=== PATIENT | female | born 1955 | race Caucasian/White ===

== ENCOUNTER 2017-06-08 14:55 | Emergency (ER) | payer OTHER ==
[2017-06-08 15:04] VITALS: RESP 20; TEMP 98.4
[2017-06-08] MEDS ORDERED: SODIUM CHLORIDE 0.9% 500 ML IV STA (16:02)
[2017-06-08] MEDS ORDERED: SODIUM CHLORIDE 0.9% 1,000 ML IV STA (16:02)
[2017-06-08 16:55] LABS: ALT 38 U/L (9-52); AST 29 U/L (14-36); Alkaline Phosphatase 103 U/L (38-126); Anion Gap 10 mmol/L; Blood Urea Nitrogen 16 mg/dL (7-17); Calcium 10.3 mg/dL (8.4-10.2); Carbon Dioxide 24 mmol/L (22-30); Chloride 104 mmol/L (98-107); Glucose 90 mg/dL (74-99); Non-African American GFR(MDRD) >60 (>60 ml/min/1.73 sqM); Potassium 3.9 mmol/L (3.5-5.1); Sodium 138 mmol/L (137-145); Total Bilirubin 0.5 mg/dL (0.2-1.3)
[2017-06-08 16:57] LABS: Appearance,Urine Clear (Clear); Basophils # (A) 0.1 k/uL (0-0.2); Basophils % (A) 1 %; Bilirubin,Urine Negative (Negative); CH 29.8; CHCM 32.7; Eosinophils % (A) 1 %; Glucose,Urine (UA) Negative (Negative); HCT 42.3 % (34.0-46.0); HDW 2.41; HGB 13.8 gm/dL (11.4-16.0); Ketones,Urine Negative (Negative); Leukocyte Esterase,Urine Negative (Negative); Luc # (Auto) 0.09; Luc % (Auto) 1; Lymphocytes # (A) 2.3 k/uL (1.0-4.8); Lymphocytes % (A) 31 %; MCH 29.9 pg (25.0-35.0); MCHC 32.7 g/dL (31.0-37.0); MCV 91.3 fL (80.0-100.0); Mean Platelet Volume 6.7; Monocytes # (A) 0.6 k/uL (0-1.0); Monocytes % (A) 8 %; Neutrophils # (A) 4.6 k/uL (1.3-7.7); Neutrophils % (A) 59 %; Nitrite,Urine Negative (Negative); PH, Urine 7.5 (5.0-8.0); Protein,Urine Negative (Negative); RBC 4.63 m/uL (3.80-5.40); RDW 14.1 % (11.5-15.5); Specific Gravity,Urine 1.016 (1.001-1.035); UA Billing (MACRO vs. MICRO) CHEM; Urobilinogen,Urine <2.0 mg/dL (<2.0); WBC 7.7 k/uL (3.8-10.6); WBC (Perox) 7.57
[2017-06-08 16:58] VITALS: BP 128/80; PULSE 75
[2017-06-08 17:05] LABS: Partial Thromboplastin Time 24.3 sec (22.0-30.0); Prothrombin Time 10.3 sec (9.0-12.0)
--- NOTE | 2017-06-08 17:27 | ED ---
General Adult HPI - General Chief complaint: Recheck/Abnormal Lab/Rx Stated complaint: trouble walking Time Seen by Provider: 06/08/17 15:49 Source: patient Mode of arrival: wheelchair Limitations: physical limitation - History of Present Illness Initial comments: This 61-year-old white female presents with a complaint of some weakness. She states that it seems to be more in her legs. It started this morning after she thinks that she took an extra Flexeril medication accidentally. She states that she did fall but did not sustain any injuries. She states that this did occur one time previously with an extra Flexeril intake. She denies any chest pain, shortness of breath, fevers, or chills. She denies any urinary symptoms. There is no cough or difficulty in breathing. No other complaints or modifying factors. She does inquire as to whether or not this could be related to an increased level of her antiseizure medications. She no longer takes Dilantin but currently is on Keppra and Lamictal. - Related Data Home Medications Medication Instructions Recorded Confirmed ALPRAZolam [Xanax] 0.25 mg PO BID@1400,2200 07/12/15 07/12/15 Albuterol Inhaler [Ventolin Hfa 1 - 2 puff INHALATION RT-Q6H PRN 07/12/15 Inhaler] Ascorbic Acid [Vitamin C] 500 mg PO HS 07/12/15 07/12/15 Atorvastatin [Lipitor] 80 mg PO HS 07/12/15 07/12/15 Calcium Carbonate [Calcium] 600 mg PO BID 07/12/15 07/12/15 Cholecalciferol [Vitamin D3] 2,000 unit PO DAILY 07/12/15 07/12/15 Cyclobenzaprine [Flexeril] 10 mg PO BID 07/12/15 07/12/15 FLUoxetine HCL [PROzac] 20 mg PO DAILY 07/12/15 07/12/15 Fish Oil/Dha/Epa [Fish Oil 1,200 1 cap PO BID 07/12/15 07/12/15 mg Fish Oil] Glucosamine/Chondr Randle A Sod [Osteo 1 tab PO BID 07/12/15 07/12/15 Bi-Flex Caplet] HYDROcodone/APAP 7.5-325MG [Transfer 1 tab PO Q4H PRN 07/12/15 07/12/15 7.5-325] Hydrochlorothiazide 12.5 mg PO DAILY 07/12/15 07/12/15 Losartan Potassium 50 mg PO DAILY 07/12/15 07/12/15 Multivitamins, Thera [Multivitamin 1 tab PO DAILY 07/12/15 07/12/15 (formulary)] Naproxen [Naprosyn] 250 mg PO BID 07/12/15 07/12/15 Omeprazole [PriLOSEC] 20 mg PO DAILY 07/12/15 07/12/15 Oxybutynin Chloride [Oxybutynin 5 mg PO DAILY 07/12/15 07/12/15 Chloride ER] Requip (Unknown Dose) 1 tab PO HS 07/12/15 07/12/15 Tiotropium 18 Mcg/Puff [Spiriva] 18 mcg INHALATION RT-DAILY 07/12/15 07/12/15 lamoTRIgine [LaMICtal] 150 mg PO BID 07/12/15 07/12/15 levETIRAcetam [Keppra Xr] 500 mg PO TID 07/12/15 07/12/15 Previous Rx's Medication Instructions Recorded Budesonide-Formot 160-4.5 Mcg 2 puff INHALATION BID #1 inhaler 07/12/15 [Symbicort 160-4.5 Mcg Inhaler] Phenytoin Sodium Extended 300 mg PO HS #0 07/12/15 [Dilantin] Allergies Allergy/AdvReac Type Severity Reaction Status Date / Time codeine Allergy Unknown Verified 06/08/17 17:20 topiramate [From Topamax] Allergy Unknown Verified 06/08/17 17:20 Review of Systems ROS Statement: Those systems with pertinent positive or pertinent negative responses have been documented in the HPI. ROS Other: All systems not noted in ROS Statement are negative. Past Medical History Past Medical History: CVA/TIA, GERD/Reflux, Hyperlipidemia, Hypertension, Seizure Disorder Additional Past Medical History / Comment(s): 07/12/15 Pt woke this AM and accidentally took extra dose of her xanax. She normally takes 0.5mg xanax but by accident, took 2 tablets. After taking xanax, she couldn't stand up-had weakness in both legs. Pt has some weakness/clumsiness in L arm and L leg from old CVA. Family also noticed slurred speech this AM. Pt is being admitted with clinical impression of TIA and acute maxoid sinusitis. 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 History of Any Multi-Drug Resistant Organisms: None Reported Past Surgical History: Hysterectomy, Tonsillectomy, Tubal Ligation Additional Past Surgical History / Comment(s): Aldo aneurysm clipping, sinus surgery, R carpal and R antecubital tunnel releases, 2 back injections for pain with last one done 03/14/15, hemorrhoidectomy, colonoscopy 2014 which was normal. Past Anesthesia/Blood Transfusion Reactions: No Reported Reaction Additional Past Anesthesia/Blood Transfusion Reaction / Comment(s): Pt states she has never received blood. Past Psychological History: Anxiety, Depression Smoking Status: Current every day smoker Past Alcohol Use History: None Reported Past Drug Use History: None Reported - Past Family History Father Family Medical History: Cancer, COPD, Pneumonia Additional Family Medical History / Comment(s): Father had colon and lung cancer. He was a smoker. He of pneumonia at age 72 yrs. Mother Family Medical History: Vascular Disorder Additional Family Medical History / Comment(s): Mother has caratid artery disease- she is living and is 87yrs old. General Exam - General Exam Comments Initial Comments: GENERAL: The patient is well nourished and well hydrated. VITAL SIGNS: Heart rate, blood pressure, respiratory rate reviewed as recorded in nurse's notes. EYES: Pupils are round and reactive. Extraocular movements are intact. No conjunctival / lid redness or swelling. ENT: No external evidence of injury, swelling, or ecchymosis. Airway is patent. Throat is clear. NECK: Nontender. No swelling or evidence of injury. No subcutaneous emphysema. Trachea is midline. No thyroid mass. HEART: Regular rate and rhythm. Good peripheral pulses. LUNGS/CHEST: Breath sounds clear and equal bilaterally. No rales, rhonchi, or wheezes. No ecchymosis, subcutaneous emphysema, or tenderness. ABDOMEN: Abdomen soft without tenderness. No palpable masses or organomegaly. No peritoneal signs. No abdominal wall swelling or ecchymosis. EXTREMITIES: No extremity tenderness. Normal muscle tone and function. No thoracolumbar tenderness. NEUROLOGIC: Sensation is grossly intact. Cranial nerve exam reveals face is symmetrical, tongue is midline, speech is clear. SKIN: No abrasions or ecchymosis is noted. No induration or masses noted. PSYCHIATRIC: Alert and oriented. Appropriate behavior and judgment. Limitations: physical limitation Course Vital Signs 06/08/17 06/08/17 14:59 16:58 Temperature 98.4 F Pulse Rate 84 Pulse Rate [ 80 Sitting] Pulse Rate [ 88 Standing] Pulse Rate [ 75 Supine] Respiratory 20 Rate Blood Pressure 131/77 Blood Pressure 131/80 [Sitting] Blood Pressure 142/73 [Standing] Blood Pressure 128/80 [Supine] O2 Sat by Pulse 96 Oximetry Medical Decision Making - Medical Decision Making The patient was seen and examined. All diagnostics were reviewed. An IV is started and she is hydrated. The EKG shows a normal sinus rhythm at a rate of 79. There is no acute ST-T wave changes. The [place] intervals 158, the QRS duration is 84, and the QTc interval is 472. The orthostatic vital signs are negative. The laboratory is unremarkable. A Keppra and Lamictal level is sent off but does not come back for a couple of days. They are instructed to follow up with their primary doctor in 2-3 days for these levels. It is felt as though she is stable for discharge. She is ambulating in the emergency Department without any difficulty. She feels better on recheck. It is felt as though her symptoms may have been related to the extra Flexeril medication on top of her other significant medication list. - Lab Data Result diagrams: 06/08/17 16:33 06/08/17 16:33 Lab Results 06/08/17 06/08/17 06/08/17 Range/Units 16:33 16:33 16:33 WBC 7.7 (3.8-10.6) k/uL RBC 4.63 (3.80-5.40) m/uL Hgb 13.8 (11.4-16.0) gm/dL Hct 42.3 (34.0-46.0) % MCV 91.3 (80.0-100.0) fL MCH 29.9 (25.0-35.0) pg MCHC 32.7 (31.0-37.0) g/dL RDW 14.1 (11.5-15.5) % Plt Count 372 (150-450) k/uL Neutrophils % 59 % Lymphocytes % 31 % Monocytes % 8 % Eosinophils % 1 % Basophils % 1 % Neutrophils # 4.6 (1.3-7.7) k/uL Lymphocytes # 2.3 (1.0-4.8) k/uL Monocytes # 0.6 (0-1.0) k/uL Eosinophils # 0.0 (0-0.7) k/uL Basophils # 0.1 (0-0.2) k/uL PT 10.3 (9.0-12.0) sec INR 1.0 (<1.2) APTT 24.3 (22.0-30.0) sec Sodium 138 (137-145) mmol/L Potassium 3.9 (3.5-5.1) mmol/L Chloride 104 (98-107) mmol/L Carbon Dioxide 24 (22-30) mmol/L Anion Gap 10 mmol/L BUN 16 (7-17) mg/dL Creatinine 0.62 (0.52-1.04) mg/dL Est GFR (MDRD) Af Amer >60 (>60 ml/min/1.73 sqM) Est GFR (MDRD) Non-Af >60 (>60 ml/min/1.73 sqM) Glucose 90 (74-99) mg/dL Calcium 10.3 H (8.4-10.2) mg/dL Total Bilirubin 0.5 (0.2-1.3) mg/dL AST 29 (14-36) U/L ALT 38 (9-52) U/L Alkaline Phosphatase 103 (38-126) U/L Total Protein 7.0 (6.3-8.2) g/dL Albumin 4.7 (3.5-5.0) g/dL Urine Color Urine Appearance (Clear) Urine pH (5.0-8.0) Ur Specific [place] (1.001-1.035) Urine Protein (Negative) Urine Glucose (UA) (Negative) Urine Ketones (Negative) Urine Blood (Negative) Urine Nitrite (Negative) Urine Bilirubin (Negative) Urine Urobilinogen (<2.0) mg/dL Ur Leukocyte Esterase (Negative) 06/08/17 Range/Units 16:33 WBC (3.8-10.6) k/uL RBC (3.80-5.40) m/uL Hgb (11.4-16.0) gm/dL Hct (34.0-46.0) % MCV (80.0-100.0) fL MCH (25.0-35.0) pg MCHC (31.0-37.0) g/dL RDW (11.5-15.5) % Plt Count (150-450) k/uL Neutrophils % % Lymphocytes % % Monocytes % % Eosinophils % % Basophils % % Neutrophils # (1.3-7.7) k/uL Lymphocytes # (1.0-4.8) k/uL Monocytes # (0-1.0) k/uL Eosinophils # (0-0.7) k/uL Basophils # (0-0.2) k/uL PT (9.0-12.0) sec INR (<1.2) APTT (22.0-30.0) sec Sodium (137-145) mmol/L Potassium (3.5-5.1) mmol/L Chloride (98-107) mmol/L Carbon Dioxide (22-30) mmol/L Anion Gap mmol/L BUN (7-17) mg/dL Creatinine (0.52-1.04) mg/dL Est GFR (MDRD) Af Amer (>60 ml/min/1.73 sqM) Est GFR (MDRD) Non-Af (>60 ml/min/1.73 sqM) Glucose (74-99) mg/dL Calcium (8.4-10.2) mg/dL Total Bilirubin (0.2-1.3) mg/dL AST (14-36) U/L ALT (9-52) U/L Alkaline Phosphatase (38-126) U/L Total Protein (6.3-8.2) g/dL Albumin (3.5-5.0) g/dL Urine Color Yellow Urine Appearance Clear (Clear) Urine pH 7.5 (5.0-8.0) Ur Specific [place] 1.016 (1.001-1.035) Urine Protein Negative (Negative) Urine Glucose (UA) Negative (Negative) Urine Ketones Negative (Negative) Urine Blood Negative (Negative) Urine Nitrite Negative (Negative) Urine Bilirubin Negative (Negative) Urine Urobilinogen <2.0 (<2.0) mg/dL Ur Leukocyte Esterase Negative (Negative) Disposition Clinical Impression: Weakness Disposition: HOME SELF-CARE Condition: Good Instructions: Weakness (ED) Additional Instructions: Please follow-up with your Keppra and Lamictal levels with your doctor in 2-3 days. Referrals: Alejandro Barragan MD [Primary Care Provider] - 1-2 days Time of Disposition: 17:26
[2017-06-09 07:54] LABS: Levetiracetam (Keppra) 56.7 ug/mL (3.0-60.0)
[2017-06-09 13:43] LABS: Lamotrigine (Lamictal) 19.7 ug/mL (2.0-15.0)
== END 2017-06-08 17:38 | disposition home or self-care (01) ==
LOC: EC 14:55
DX: R53.1 Weakness (principal); K21.9 Gastro-esophageal reflux disease without esophagitis; E78.5 Hyperlipidemia, unspecified; I10 Essential (primary) hypertension; G40.909 Epilepsy, unspecified, not intractable, without status epilepticus; F32.9 Major depressive disorder, single episode, unspecified; F17.200 Nicotine dependence, unspecified, uncomplicated; F41.9 Anxiety disorder, unspecified; Z86.73 Personal history of transient ischemic attack (TIA), and cerebral infarction without residual deficits; Z88.5 Allergy status to narcotic agent; Z88.8 Allergy status to other drugs, medicaments and biological substances; Z79.1 Long term (current) use of non-steroidal anti-inflammatories (NSAID); Z79.899 Other long term (current) drug therapy
CPT/HCPCS: 36415; 80053; 80175; 80177; 81003; 84443; 85025; 85610; 85730; 93005; 99284

== ENCOUNTER → 2019-03-01 | Outpatient (CLI) | payer OTHER ==
--- NOTE | 2019-03-01 15:00 | CT ---
EXAMINATION TYPE: CT brain wo con DATE OF EXAM: 03/01/2019 COMPARISON: 07/12/2015 HISTORY: Frequent falls CT DLP: 1150 mGycm Automated exposure control for dose reduction was used. FINDINGS: Postsurgical changes of right frontoparietal and temporal craniotomy with underlying encephalomalacia in the right frontal, parietal, temporal and occipital lobes. There is stable ex vacuo dilatation of the right lateral ventricle. No evidence of acute intracranial hemorrhage. Left cerebral hemisphere is preserved. Cerebellar hemispheres are preserved. No hydrocephalus. No extra-axial fluid collection . Visualized paranasal sinuses and mastoid air cells are clear. The globes are intact. Redemonstratio n of aneurysm clip on the right and posterior to the sella turcica. IMPRESSION: NO ACUTE INTRACRANIAL PROCESS. 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 FINDINGS ARE SIMILAR WHEN COMPARED TO 07/12/2015.
== END | disposition home or self-care (01) ==
LOC: RADCTMAIN 13:24
PROVIDERS: ATTEND Psychiatry & Neurology Neurology
DX: I63.9 Cerebral infarction, unspecified (principal); G93.89 Other specified disorders of brain
CPT/HCPCS: 70450

== ENCOUNTER → 2019-09-07 | Outpatient (CLI) | payer OTHER ==
--- NOTE | 2019-09-08 07:25 | CT ---
EXAMINATION TYPE: CT cervical spine wo con DATE OF EXAM: 09/07/2019 COMPARISON: None HISTORY: 63-year-old female neck pain, no injury TECHNIQUE: Contiguous axial scanning of the cervical spine without IV contrast. Coronal and sagittal reconstructions performed. CT DLP: 298.9 mGycm Automated exposure control for dose reduction was used. FINDINGS: No craniocervical junction abnormality, predental space widening, or prevertebral soft tissue swellin g. Some degenerative changes of the C1 dens articulation. Some calcification mild thickening of the t ransverse ligament without any abnormal canal compromise at this level. Mild multilevel degenerative disc disease with disc bulges. Some discal calcifications are also noted as well as calcification of ligamentum flavum at various levels. Mild to moderate uncovertebral joint arthropathy mid to lower cervical spine. Scattered mild facet ar thropathy. Changes result in underlying mild spinal canal stenoses at multiple levels, possibly more moderate at C3-C4 and C5-C6. Assessment of the spinal canal at C6 and below is limited due to artifact from david ent's shoulders. Alignment is maintained. At C3-C4, there is mild right neuroforaminal stenosis. At C4-C5, there is moderate right neuroforaminal stenosis. At C5-C6, mild bilateral neuroforaminal narrowing. At C6/7, mild right neuroforaminal narrowing. Visualized upper lungs show underlying emphysematous change. IMPRESSION: 1. Mild multilevel degenerative disc disease with posterior disc bulges, scattered facet and uncovert ebral joint arthropathy, and ligamentum flavum thickening/calcification. 2. Mild spinal canal stenosis throughout, possibly more moderate at C3-C4 and C5-C6. 3. Variable mild neuroforaminal stenoses as outlined above. More moderate on the right at C4-C5. 4. Calcification of the ligamentum flavum, transverse ligament, and some scattered discal calcificati on. Nonspecific findings but which may be seen with CPPD.
--- NOTE | 2019-09-08 07:31 | CT ---
EXAMINATION TYPE: CT lumbar spine wo con DATE OF EXAM: 09/07/2019 COMPARISON: None HISTORY: 63-year-old female back pain, no injury TECHNIQUE: Contiguous axial scanning of the lumbar spine without IV contrast. Coronal and sagittal re constructions performed. CT DLP: 613.3 mGycm Automated exposure control for dose reduction was used. FINDINGS: Moderate atherosclerotic calcifications throughout the abdominal aorta and iliac arteries. There is m ild infrarenal AAA at 3.1 cm. Possible pelviectasis versus parapelvic cyst measuring 2.4 cm within th e right kidney. The latter is favored. Suspect a smaller parapelvic cyst lower pole left kidney. Calcification of the interspinous ligaments and scattered throughout the ligamentum flavum mild scatt ered intradiscal calcification noted within the lumbar spine as well. Vertebral body heights are preserved and alignment is maintained. Mild disc bulges at multiple levels. No evident canal compromise by CT. Facet arthropathy throughout the lumbar spine. On the left, changes result in mild neural foraminal stenoses at L2-L3, L4-L5, and more mild to moder ate at L5-S1. On the right, the changes result in mild neuroforaminal stenoses at L3-L4 and L4-L5 and more mild to moderate at L5-S1. IMPRESSION: 1. Calcifications throughout the interspinous ligaments, mild discal calcification, and scattered thr oughout the ligamentum flavum as well. Correlate for possible CPPD. 2. Mild multilevel degenerative disc disease with mild disc bulging. No evident canal compromise by C T. 3. Facet arthropathy throughout the lumbar spine. Changes result in variable mild neuroforaminal sten oses mid and lower lumbar spine, more mild to moderate on both sides at L5-S1. 4. Incidental AAA measuring 3.1 cm. Appropriate follow-up recommended.
== END | disposition home or self-care (01) ==
LOC: RADCTMAIN 15:01
PROVIDERS: ATTEND Psychiatry & Neurology Neurology
DX: M48.02 Spinal stenosis, cervical region (principal); M50.10 Cervical disc disorder with radiculopathy, unspecified cervical region; M46.92 Unspecified inflammatory spondylopathy, cervical region; M48.061 Spinal stenosis, lumbar region without neurogenic claudication; M51.26 Other intervertebral disc displacement, lumbar region; M51.36 Other intervertebral disc degeneration, lumbar region; M46.96 Unspecified inflammatory spondylopathy, lumbar region; Z88.5 Allergy status to narcotic agent; Z88.8 Allergy status to other drugs, medicaments and biological substances
CPT/HCPCS: 72125; 72131

== ENCOUNTER 2020-06-04 07:17 | Emergency (ER) | payer OTHER ==
[2020-06-04 07:24] VITALS: TEMP 98.2
[2020-06-04] MEDS ORDERED: MECLIZINE 12.5 MG TAB PO STA (07:25)
[2020-06-04] MEDS ORDERED: METOCLOPRAMIDE 5 MG/ML 2 ML VIAL IVP STA (07:25)
[2020-06-04] MEDS ORDERED: SODIUM CHLORIDE 0.9% 1,000 ML IV STA (07:43)
--- NOTE | 2020-06-04 07:43 | ED ---
General Adult HPI - General Chief complaint: Dizziness Stated complaint: Dizziness Time Seen by Provider: 06/04/20 07:20 Source: EMS Mode of arrival: EMS Limitations: no limitations - History of Present Illness Initial comments: Dictation was produced using [employer] dictation software. please excuse any grammatical, word or spelling errors. This patient was cared for during a federal and state declared state of emergency secondary to Covid 19 Chief Complaint: 64-year-old male presents with dizziness History of Present Illness: This 64-year-old female she has past medical history of chronic dizziness. She presents today with worsening dizziness. She states she ran out of her Antivert medication which she takes twice daily. Patient states she's been having dizziness for the last 2 years. Her symptoms today are similar from the symptoms she experience in the past. She lives at home by herself and began having worsening dizziness. She called EMS and was brought to the emergency department. Patient has a fever, chills or night sweats. Denies any respiratory symptoms. She does have some mild urinary frequency. Denies any dysuria. She is concerned about possible urinary tract infection. She states that she has seen multiple specialists regarding her dizziness and reports that she is a candidate for some sort of therapy to treat her dizziness permanently. She denies any headache. She denies any numbness and weakness in her arms or legs. The ROS documented in this emergency department record has been reviewed and confirmed by me. Those systems with pertinent positive or negative responses have been documented in the HPI. All other systems are other negative and/or noncontributory. PHYSICAL EXAM: General Impression: Alert and oriented x3, not in acute distress HEENT: Normocephalic atraumatic, extra-ocular movements intact, pupils equal and reactive to light bilaterally, mucous membranes moist. Cardiovascular: Heart regular rate and rhythm Chest: Able to complete full sentences, no retractions, no tachypnea Abdomen: abdomen soft, non-tender, non-distended, no organomegaly Musculoskeletal: Pulses present and equal in all extremities, no peripheral edema Motor: no focal deficits noted Neurological: CN II-XII grossly intact, no focal motor or sensory deficits noted, no truncal ataxia Skin: Intact with no visualized rashes Psych: Normal affect and mood ED course: 64-year-old female presents today with dizziness. She has had this diagnosis for approximately 2 years. She reports she has Antivert at home and recently ran out. Vital signs upon arrival are within acceptable limits. Pat ient physical examination is benign. EKG is unremarkable. Patient's medications are reviewed. Chart review was performed. Previous CTs demonstrate old encephalomalacia to the right hemisphere. Patient ambulated to bathroom and gait is at baseline although she does require minimal assistance. She is not gait ataxic She reports that this is her usual baseline. She did report some mild dizziness with ambulation. Laboratory evaluation obtained. CBC, metabolic panel is unremarkable. Urinal ysis is negative. Patient reevaluated at bedside after intravenous fluids, Reglan and Antivert. She reports significant improvement of symptoms. She feels back to normal. Patient given refill on her Antivert. She is strongly advised to follow-up with her primary care physician on an outpatient basis for reevaluation of symptoms and outpatient management of her chronic dizziness. Patient is understandable and agreeable with discharge. Return parameters discussed. EKG interpretation: Ventricular rate 73, normal sinus rhythm,. 174, QRS 96, QTC 495. No OH prolongation, no QTC prolongation, no ST or T-wave changes noted. EKG compared to 06/08/2017 showing no changes. Overall, this EKG is unremarkable - Related Data Home Medications Medication Instructions Recorded Confirmed Cyclobenzaprine [Flexeril] 5 mg PO BID 07/12/15 06/04/20 HYDROcodone/APAP 7.5-325MG [[place] 1 tab PO BID PRN 07/12/15 06/04/20 7.5-325] Hydrochlorothiazide 12.5 mg PO DAILY 07/12/15 06/04/20 [hydroCHLOROthiazide] Losartan Potassium 50 mg PO DAILY 07/12/15 06/04/20 Omeprazole [PriLOSEC] 20 mg PO DAILY 07/12/15 06/04/20 Budesonide-Formot 160-4.5 Mcg 2 puff INHALATION RT-BID 06/08/17 06/04/20 [Symbicort 160-4.5 Mcg Inhaler] Fluticasone/Salmeterol 2 puff INHALATION RT-BID 06/04/20 06/04/20 [Fluticasone-Salmeterol 232-14] Meclizine [Antivert] 25 mg PO TID PRN 06/04/20 06/04/20 Rosuvastatin [Crestor] 10 mg PO DAILY 06/04/20 06/04/20 Umeclidinium Galva [Incruse 1 puff INHALATION RT-DAILY 06/04/20 06/04/20 Ellipta] levETIRAcetam [Keppra] 1,500 mg PO BID 06/04/20 06/04/20 Previous Rx's Medication Instructions Recorded Meclizine [Antivert] 25 mg PO TID PRN #21 tab 06/04/20 Allergies Allergy/AdvReac Type Severity Reaction Status Date / Time codeine Allergy Unknown Verified 06/04/20 08:24 topiramate [From Topamax] Allergy Unknown Verified 06/04/20 08:24 Review of Systems ROS Statement: Those systems with pertinent positive or pertinent negative responses have been documented in the HPI. ROS Other: All systems not noted in ROS Statement are negative. Past Medical History Past Medical History: CVA/TIA, GERD/Reflux, Hyperlipidemia, Hypertension, Seizure Disorder Additional Past Medical History / Comment(s): 07/12/15 Pt woke this AM and accidentally took extra dose of her xanax. She normally takes 0.5mg xanax but by accident, took 2 tablets. After taking xanax, she couldn't stand up-had weakness in both legs. Pt has some weakness/clumsiness in L arm and L leg from old CVA. Family also noticed slurred speech this AM. Pt is being admitted with clinical impression of TIA and acute maxoid sinusitis. 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 History of Any Multi-Drug Resistant Organisms: None Reported Past Surgical History: Hysterectomy, Tonsillectomy, Tubal Ligation Additional Past Surgical History / Comment(s): Aldo aneurysm clipping, sinus surgery, R carpal and R antecubital tunnel releases, 2 back injections for pain with last one done 03/14/15, hemorrhoidectomy, colonoscopy 2014 which was normal. Past Anesthesia/Blood Transfusion Reactions: No Reported Reaction Additional Past Anesthesia/Blood Transfusion Reaction / Comment(s): Pt states she has never received blood. Past Psychological History: Anxiety, Depression Smoking Status: Current every day smoker Past Alcohol Use History: None Reported Past Drug Use History: None Reported - Past Family History Father Family Medical History: Cancer, COPD, Pneumonia Additional Family Medical History / Comment(s): Father had colon and lung cancer. He was a smoker. He of pneumonia at age 72 yrs. Mother Family Medical History: Vascular Disorder Additional Family Medical History / Comment(s): Mother has caratid artery disease- she is living and is 87yrs old. General Exam Limitations: no limitations Course Vital Signs 06/04/20 07:18 Temperature 98.2 F Pulse Rate 80 Respiratory 16 Rate Blood Pressure 184/98 O2 Sat by Pulse 96 Oximetry Medical Decision Making - Lab Data Result diagrams: 06/04/20 07:40 06/04/20 07:40 Lab Results 06/04/20 06/04/20 06/04/20 Range/Units 07:40 07:40 07:52 WBC 7.5 (3.8-10.6) k/uL RBC 4.60 (3.80-5.40) m/uL Hgb 14.1 (11.4-16.0) gm/dL Hct 41.6 (34.0-46.0) % MCV 90.5 (80.0-100.0) fL MCH 30.6 (25.0-35.0) pg MCHC 33.8 (31.0-37.0) g/dL RDW 12.6 (11.5-15.5) % Plt Count 392 (150-450) k/uL MPV 6.6 Neutrophils % 62 % Lymphocytes % 26 % Monocytes % 8 % Eosinophils % 2 % Basophils % 1 % Neutrophils # 4.7 (1.3-7.7) k/uL Lymphocytes # 2.0 (1.0-4.8) k/uL Monocytes # 0.6 (0-1.0) k/uL Eosinophils # 0.1 (0-0.7) k/uL Basophils # 0.0 (0-0.2) k/uL Sodium 142 (137-145) mmol/L Potassium 3.7 (3.5-5.1) mmol/L Chloride 105 (98-107) mmol/L Carbon Dioxide 30 (22-30) mmol/L Anion Gap 7 mmol/L BUN 10 (7-17) mg/dL Creatinine 0.58 (0.52-1.04) mg/dL Est GFR (CKD-EPI)AfAm >90 (>60 ml/min/1.73 sqM) Est GFR (CKD-EPI)NonAf >90 (>60 ml/min/1.73 sqM) Glucose 85 (74-99) mg/dL Calcium 9.4 (8.4-10.2) mg/dL Magnesium 1.8 (1.6-2.3) mg/dL Urine Color Yellow Urine Appearance Clear (Clear) Urine pH 7.0 (5.0-8.0) Ur Specific [place] 1.010 (1.001-1.035) Urine Protein Negative (Negative) Urine Glucose (UA) Negative (Negative) Urine Ketones Negative (Negative) Urine Blood Trace H (Negative) Urine Nitrite Negative (Negative) Urine Bilirubin Negative (Negative) Urine Urobilinogen <2.0 (<2.0) mg/dL Ur Leukocyte Esterase Moderate H (Negative) Urine RBC 3 (0-5) /hpf Urine WBC 4 (0-5) /hpf Ur Squamous Epith Cells <1 (0-4) /hpf Disposition Clinical Impression: Dizziness Disposition: HOME SELF-CARE Condition: Good Instructions (If sedation given, give patient instructions): Dizziness (ED) Additional Instructions: 1. Please follow up with her primary care physician sometime this week for outpatient evaluation of dizziness and refill on your Antivert medication Prescriptions: Meclizine [Antivert] 25 mg PO TID PRN #21 tab PRN Reason: dizziness Is patient prescribed a controlled substance at d/c from ED?: No Referrals: Alejandro Barragan MD [Primary Care Provider] - 1-2 days Time of Disposition: 08:53
[2020-06-04 07:54] LABS: Basophils % (A) 1 %; Eosinophils # (A) 0.1 k/uL (0-0.7); Eosinophils % (A) 2 %; HCT 41.6 % (34.0-46.0); HGB 14.1 gm/dL (11.4-16.0); Lymphocytes % (A) 26 %; MCH 30.6 pg (25.0-35.0); MCHC 33.8 g/dL (31.0-37.0); MCV 90.5 fL (80.0-100.0); Mean Platelet Volume 6.6; Monocytes # (A) 0.6 k/uL (0-1.0); Monocytes % (A) 8 %; Neutrophils # (A) 4.7 k/uL (1.3-7.7); Neutrophils % (A) 62 %; Platelet Count 392 k/uL (150-450); RDW 12.6 % (11.5-15.5); WBC 7.5 k/uL (3.8-10.6)
[2020-06-04 08:10] LABS: African American GFR (CKD) >90 (>60 ml/min/1.73 sqM); Anion Gap 7 mmol/L; Blood Urea Nitrogen 10 mg/dL (7-17); Calcium 9.4 mg/dL (8.4-10.2); Carbon Dioxide 30 mmol/L (22-30); Chloride 105 mmol/L (98-107); Glucose 85 mg/dL (74-99); Magnesium 1.8 mg/dL (1.6-2.3); Non-African American GFR(CKD) >90 (>60 ml/min/1.73 sqM); Potassium 3.7 mmol/L (3.5-5.1); Sodium 142 mmol/L (137-145)
[2020-06-04 08:25] LABS: Appearance,Urine Clear (Clear); Bilirubin,Urine Negative (Negative); Blood,Urine Trace (Negative); Color,Urine Yellow; Glucose,Urine (UA) Negative (Negative); Ketones,Urine Negative (Negative); Leukocyte Esterase,Urine Moderate (Negative); Nitrite,Urine Negative (Negative); Protein,Urine Negative (Negative); RBC,Urine 3 /hpf (0-5); Squamous Epithelial Cell,Urine <1 /hpf (0-4); Urobilinogen,Urine <2.0 mg/dL (<2.0); WBC,Urine 4 /hpf (0-5)
[2020-06-04 09:07] VITALS: BP 139/81; PULSE 70; RESP 18
== END 2020-06-04 09:14 | disposition home or self-care (01) ==
LOC: EC 07:17
DX: R42 Dizziness and giddiness (principal); R35.0 Frequency of micturition; F41.9 Anxiety disorder, unspecified; F32.9 Major depressive disorder, single episode, unspecified; F17.200 Nicotine dependence, unspecified, uncomplicated; K21.9 Gastro-esophageal reflux disease without esophagitis; E78.5 Hyperlipidemia, unspecified; I10 Essential (primary) hypertension; G40.909 Epilepsy, unspecified, not intractable, without status epilepticus; Z79.899 Other long term (current) drug therapy; Z88.5 Allergy status to narcotic agent; Z88.8 Allergy status to other drugs, medicaments and biological substances; Z90.710 Acquired absence of both cervix and uterus; Z98.51 Tubal ligation status; Z86.73 Personal history of transient ischemic attack (TIA), and cerebral infarction without residual deficits
CPT/HCPCS: 36415; 93005; 80048; 83735; 85025; 81001; 99284; 96374; 96361; J2765

== ENCOUNTER → 2020-11-20 | Outpatient (CLI) | payer OTHER ==
--- NOTE | 2020-11-20 10:16 | US ---
EXAMINATION TYPE: US duplex aorta DATE OF EXAM: 11/20/2020 COMPARISON: NONE CLINICAL HISTORY: I71.4 Abdominal aortic aneurysm, without rupture. AAA EXAM MEASUREMENTS: Abdominal Aorta: Proximal: 1.6 x 1.4cm Mid: 1.9 x 1.6cm Distal: 3.0 x 2.6cm Bifurcation: RT: 1.0 x 0.8cm LT: 1.0 x 0.8cm calcifications noted. distal abdominal aorta upper limits of normal IMPRESSION: 1. Distal abdominal aorta fusiform prominence with an AP diameter of 2.6 cm.
== END | disposition home or self-care (01) ==
LOC: RADUSWWP 09:31
PROVIDERS: ATTEND Pediatrics
DX: I71.4 Abdominal aortic aneurysm, without rupture (principal)
CPT/HCPCS: 93979

== ENCOUNTER → 2020-12-21 | Outpatient (CLI) | payer OTHER ==
--- NOTE | 2020-12-25 09:23 | MM ---
Reason for exam: screening (asymptomatic). Last mammogram was performed 5 years and 9 months ago. History: Patient is postmenopausal and history of other cancer. Family history of breast cancer in mother at age 78. Benign US breast aspiration single LT of the left breast, March 29, 2015. Physical Findings: A clinical breast exam by your physician is recommended on an annual basis and results should be correlated with mammographic findings. MG Screening Mammo w CAD Bilateral CC and MLO view(s) were taken. Prior study comparison: March 29, 2015, left breast MG diagnostic mammo LT wo CAD. March 07, 2015, bilateral MG screening mammo w CAD. There are scattered fibroglandular densities. Previous mammotome biopsy in the left breast. Benign oil cyst calcifications. Central left CC view asymmetric density is more defined. ASSESSMENT: Incomplete: need additional imaging evaluation, BI-RAD 0 RECOMMENDATION: Special view mammogram of the left breast. (3D) If lesion persists on supplemental views, image directed ultrasound is recommended. [facility] will attempt to contact patient to return for supplemental views and ultrasound if indicated.
== END | disposition home or self-care (01) ==
LOC: RADMAMWWP 13:58
PROVIDERS: ATTEND Pediatrics
DX: Z12.31 Encounter for screening mammogram for malignant neoplasm of breast (principal); Z78.0 Asymptomatic menopausal state; Z80.3 Family history of malignant neoplasm of breast
CPT/HCPCS: 77067

== ENCOUNTER → 2021-01-30 | Outpatient (CLI) | payer OTHER ==
--- NOTE | 2021-01-30 09:26 | CT ---
EXAMINATION TYPE: CT brain wo con DATE OF EXAM: 01/30/2021 COMPARISON: 03/01/2019 HISTORY: 03/01/[address] of the brain was performed. The ventricles, basal cisterns and sulci overlying the cerebral convexities demonstrate moderate enla rgement. Large area of encephalomalacia right temporoparietal occipital region. Overall the appearanc e is stable. There is no evidence for intracranial hemorrhage or sulcal effacement. There is decreased attenuation about the periventricular white matter and deep white matter of both c erebral hemispheres, compatible with chronic small vessel ischemia. Differential diagnosis does inclu de demyelination. No mass effects are seen.No midline shift. Craniotomy changes right parietal region redemonstrated. If symptoms persist consider MRI. IMPRESSION: 1. Age related atrophic and chronic small vessel ischemic change without acute intracranial process s een at this time. Stable large area of encephalomalacia right parietal-occipital lobe.
--- NOTE | 2021-01-30 13:06 | US ---
EXAMINATION TYPE: US carotid duplex BILAT DATE OF EXAM: 01/30/2021 COMPARISON: NONE CLINICAL HISTORY: Stroke Z89.73, Dizziness R42, Aneurysm I72.9. stroke 30yrs ago EXAM MEASUREMENTS: RIGHT: Peak Systolic Velocity (PSV) cm/sec ----- Right CCA: 80.0 ----- Right ICA: 94.6 ----- Right ECA: 62.9 ICA/CCA ratio: 1.2 RIGHT: End Diastole cm/sec ----- Right CCA: 17.2 ----- Right ICA: 34.5 ----- Right ECA: 15.4 LEFT: Peak Systolic Velocity (PSV) cm/sec ----- Left CCA: 61.6 ----- Left ICA: 69.6 ----- Left ECA: 115.0 ICA/CCA ratio: 1.1 LEFT: End Diastole cm/sec ----- Left CCA: 18.2 ----- Left ICA: 29.0 ----- Left ECA: 27.7 VERTEBRALS (direction of flow): Right Vertebral: Antegrade Left Vertebral: Antegrade Rhythm: Normal *Patient talked throughout exam, mild heterogeneous plaque seen bilateral bulbs with no significant s tenosis seen. IMPRESSION: No sonographic evidence for hemodynamically significant stenosis in the bilateral carotid arteries. Criteria for Assigning % of Stenosis / Diameter reduction (Estimation based on the indirect measurements of the internal carotid artery velocities (ICA PSV). 1. Normal (no stenosis)=ICA PSV < 125 cm/s: ratio < 2.0: ICA EDV<40 cm/s. 2. Less than 50% stenosis=ICA PSV < 125 cm/s: ratio < 2.0: ICA EDV<40 cm/s. 3. 50 to 69% stenosis=ICA PSV of 125 to 230 cm/s: ration 2.0 ? 4.0: ICA EDV 40-100 cm/s. 4. Greater than 70% stenosis to near occlusion= ICA PSV > 230 cm/s: ratio > 4.0: ICA EDV > 100 cm/s. 5. Near occlusion= ICA PSV velocities may be low or undetectable: variable ratio and ICA EDV. 6. Total occlusion=unable to detect flow.
== END | disposition home or self-care (01) ==
LOC: RADCTMAIN 08:39
PROVIDERS: ATTEND Psychiatry & Neurology Neurology
DX: I67.82 Cerebral ischemia (principal); I65.23 Occlusion and stenosis of bilateral carotid arteries; G93.89 Other specified disorders of brain
CPT/HCPCS: 70450; 93880

== ENCOUNTER → 2021-01-30 | Outpatient (CLI) | payer OTHER ==
--- NOTE | 2021-01-30 11:11 | MM ---
Reason for exam: additional evaluation requested from abnormal screening. Last mammogram was performed 1 month ago. History: Patient is postmenopausal and history of other cancer. Family history of breast cancer in mother at age 78. Benign US breast aspiration single LT of the left breast, March 29, 2015. Physical Findings: Nurse did not find any significant physical abnormalities on exam. MG Work Up Mamm w CAD LT Spot compression CC and ML view(s) were taken of the left breast. Prior study comparison: December 21, 2020, bilateral MG screening mammo w CAD. March 29, 2015, left breast MG diagnostic mammo LT wo CAD. March 07, 2015, bilateral MG screening mammo w CAD. There are scattered fibroglandular densities. There is an approximately 0.6cm mass in the left breast at about 12 o'clock about 4-5cm from nipple and ultrasound is recommended. Left biopsy clip. These results were verbally communicated with the patient and result sheet given to the patient on 01/30/21. ASSESSMENT: Incomplete: need additional imaging evaluation, BI-RAD 0 RECOMMENDATION: Ultrasound of the left breast.
--- NOTE | 2021-01-30 11:13 | USB ---
Reason for exam: additional evaluation requested from abnormal screening. History: Patient is postmenopausal and history of other cancer. Family history of breast cancer in mother at age 78. Benign US breast aspiration single LT of the left breast, March 29, 2015. US Breast Workup Limited LT Left limited breast ultrasound including focal area of concern, retroareolar and axilla demonstrates a 0.3 x 0.3 x 0.2cm cystic lesion at 1 o'clock. These results were verbally communicated with the patient and result sheet given to the patient on 01/30/21. ASSESSMENT: Probably benign, BI-RAD 3 RECOMMENDATION: Follow-up diagnostic mammogram and ultrasound of the left breast in 6 months.
== END | disposition home or self-care (01) ==
LOC: RADMAMWWP 09:10
PROVIDERS: ATTEND Pediatrics
DX: N60.02 Solitary cyst of left breast (principal); N63.25 Unspecified lump in the left breast, overlapping quadrants; Z78.0 Asymptomatic menopausal state; Z85.9 Personal history of malignant neoplasm, unspecified; Z80.3 Family history of malignant neoplasm of breast
CPT/HCPCS: 77065

== ENCOUNTER 2021-11-04 15:45 | Observation (INO) | payer OTHER ==
--- NOTE | 2021-11-04 16:12 | ED ---
General Adult HPI - General Chief complaint: Weakness Stated complaint: weakness, diarrhea Time Seen by Provider: 11/04/21 16:11 Source: patient, EMS Mode of arrival: EMS Limitations: no limitations - History of Present Illness Initial comments: Marion is a 65-year-old female presents the emergency department today via private vehicle for evaluation of concern that she is dehydrated, generalized weakness and diarrhea for 5 days. Patient reports she had mild crampy abdominal discomfort, no significant abdominal pain. She's not been able to eat or drink much because any oral intake results and diarrhea. Patient states she is progressively getting weaker and weaker and can barely walk due to dehydration. - Related Data Home Medications Medication Instructions Recorded Confirmed Cyclobenzaprine [Flexeril] 10 mg PO HS@219907/12/15 11/04/21 HYDROcodone/APAP 7.5-325MG [[place] 1 tab PO BID@1000,139907/12/15 11/04/21 7.5-325] Hydrochlorothiazide 12.5 mg PO DAILY@99907/12/15 11/04/21 [hydroCHLOROthiazide] Losartan Potassium 50 mg PO DAILY@1000 07/12/15 11/04/21 Omeprazole [PriLOSEC] 20 mg PO DAILY@1000 07/12/15 11/04/21 Rosuvastatin [Crestor] 10 mg PO HS@219906/04/20 11/04/21 levETIRAcetam [Keppra] 1,500 mg PO BID@1000,219906/04/20 11/04/21 Albuterol Sulfate [Ventolin HFA] 2 puff INHALATION RT-BID@999,219911/04/21 11/04/21 FLUoxetine HCL [PROzac] 20 mg PO DAILY@99911/04/21 11/04/21 Gabapentin [Neurontin] 100 mg PO TID@1000,1400,219911/04/21 11/04/21 Meclizine [Antivert] 25 mg PO TID@1000,1400,219911/04/21 11/04/21 Nitrofurantoin Monohyd/M-Cryst 100 mg PO BID@1000,219911/04/21 11/04/21 [Macrobid] Tiotropium 18 Mcg/Puff [Spiriva] 1 puff INHALATION RT-DAILY@99911/04/21 11/04/21 lamoTRIgine [lamoTRIgine ODT] 50 mg PO BID@1000,2200 11/04/21 11/04/21 lamoTRIgine [lamoTRIgine ODT] 200 mg PO BID@1000,2200 11/04/21 11/04/21 Allergies Allergy/AdvReac Type Severity Reaction Status Date / Time codeine Allergy Unknown Verified 11/04/21 17:21 topiramate [From Topamax] Allergy Unknown Verified 11/04/21 17:21 Review of Systems ROS Statement: Those systems with pertinent positive or pertinent negative responses have been documented in the HPI. ROS Other: All systems not noted in ROS Statement are negative. Past Medical History Past Medical History: CVA/TIA, GERD/Reflux, Hyperlipidemia, Hypertension, Sei zure Disorder Additional Past Medical History / Comment(s): 07/12/15 Pt woke this AM and accidentally took extra dose of her xanax. She normally takes 0.5mg xanax but by accident, took 2 tablets. After taking xanax, she couldn't stand up-had weakness in both legs. Pt has some weakness/clumsiness in L arm and L leg from old CVA. Family also noticed slurred speech this AM. Pt is being admitted with clinical impression of TIA and acute maxoid sinusitis. 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 History of Any Multi-Drug Resistant Organisms: None Reported Past Surgical History: Hysterectomy, Tonsillectomy, Tubal Ligation Additional Past Surgical History / Comment(s): Aldo aneurysm clipping, sinus surgery, R carpal and R antecubital tunnel releases, 2 back injections for pain with last one done 03/14/15, hemorrhoidectomy, colonoscopy 2014 which was normal. Past Anesthesia/Blood Transfusion Reactions: No Reported Reaction Additional Past Anesthesia/Blood Transfusion Reaction / Comment(s): Pt states she has never received blood. Past Psychological History: Anxiety, Depression Smoking Status: Current every day smoker Past Alcohol Use History: None Reported Past Drug Use History: Marijuana - Past Family History Father Family Medical History: Cancer, COPD, Pneumonia Additional Family Medical History / Comment(s): Father had colon and lung cancer. He was a smoker. He of pneumonia at age 72 yrs. Mother Family Medical History: Vascular Disorder Additional Family Medical History / Comment(s): Mother has caratid artery disease- she is living and is 87yrs old. General Exam - General Exam Comments Initial Comments: Physical Exam GENERAL: Patient is well-developed and well-nourished. Patient is nontoxic and well-hydrated and is in no distress. HENT: Normocephalic, Atraumatic. Dry oromucosa EYES: PERRL, EOMI PULMONARY: Unlabored respirations. CARDIOVASCULAR: RRR Warm and well perfused extremities ABDOMEN: Non-distended SKIN: Dry, tenting noted : Deferred NEUROLOGIC: Alert and oriented MUSCULOSKELETAL: Moving all extremities with no apparent injury PSYCHIATRIC: No SI/HI Limitations: no limitations Course Vital Signs 11/04/21 11/04/21 15:47 16:51 Temperature 98.6 F Pulse Rate 75 78 Respiratory 18 18 Rate Blood Pressure 99/55 90/56 O2 Sat by Pulse 95 96 Oximetry EKG Findings - EKG Comments: EKG Findings:: EKG was obtained due to complaint of weakness, EKG was obtained at 1601, rate is 79 rhythm is sinus no acute ST elevations, some diffuse ST depressions likely related to potassium abnormality. No evidence of ischemia or infarction. Medical Decision Making - Lab Data Result diagrams: 11/04/21 16:51 11/04/21 16:51 Lab Results 11/04/21 11/04/21 11/04/21 Range/Units 16:51 16:51 16:51 WBC 6.2 (3.8-10.6) k/uL RBC 4.52 (3.80-5.40) m/uL Hgb 13.1 (11.4-16.0) gm/dL Hct 40.1 (34.0-46.0) % MCV 88.7 (80.0-100.0) fL MCH 29.0 (25.0-35.0) pg MCHC 32.7 (31.0-37.0) g/dL RDW 13.2 (11.5-15.5) % Plt Count 246 (150-450) k/uL MPV 7.0 Neutrophils % 94 % Lymphocytes % 2 % Monocytes % 2 % Eosinophils % 0 % Basophils % 0 % Neutrophils # 5.8 (1.3-7.7) k/uL Lymphocytes # 0.1 L (1.0-4.8) k/uL Monocytes # 0.1 (0-1.0) k/uL Eosinophils # 0.0 (0-0.7) k/uL Basophils # 0.0 (0-0.2) k/uL Sodium 132 L (137-145) mmol/L Potassium 2.9 L (3.5-5.1) mmol/L Chloride 101 (98-107) mmol/L Carbon Dioxide 21 L (22-30) mmol/L Anion Gap 10 mmol/L BUN 20 H (7-17) mg/dL Creatinine 1.11 H (0.52-1.04) mg/dL Est GFR (CKD-EPI)AfAm 61 (>60 ml/min/1.73 sqM) Est GFR (CKD-EPI)NonAf 53 (>60 ml/min/1.73 sqM) Glucose 149 H (74-99) mg/dL Plasma Lactic Acid [place] 3.7 H* (0.7-2.0) mmol/L Calcium 7.8 L (8.4-10.2) mg/dL Total Bilirubin 1.0 (0.2-1.3) mg/dL AST 31 (14-36) U/L ALT 20 (4-34) U/L Alkaline Phosphatase 66 (38-126) U/L Total Protein 5.3 L (6.3-8.2) g/dL Albumin 3.2 L (3.5-5.0) g/dL Lipase 378 H (23-300) U/L Disposition Clinical Impression: Hypokalemia, Diarrhea, DENNIS (acute kidney injury), Dehydration Disposition: ADMITTED IP TO THIS HOSP Condition: Stable Is patient prescribed a controlled substance at d/c from ED?: No Referrals: Alejandro Barragan MD [Primary Care Provider] - 1-2 days
[2021-11-04] MEDS ORDERED: SODIUM CHLORIDE 0.9% 1,000 ML IV STA (16:37)
[2021-11-04] MEDS ORDERED: HYDROcodone/APAP 7.5-325MG 1 EACH TAB PO ONE (16:38)
[2021-11-04 17:23] LABS: Basophils % (A) 0 %; Eosinophils % (A) 0 %; HCT 40.1 % (34.0-46.0); HGB 13.1 gm/dL (11.4-16.0); Lymphocytes # (A) 0.1 k/uL (1.0-4.8); Lymphocytes % (A) 2 %; MCHC 32.7 g/dL (31.0-37.0); MCV 88.7 fL (80.0-100.0); Monocytes # (A) 0.1 k/uL (0-1.0); Monocytes % (A) 2 %; Neutrophils # (A) 5.8 k/uL (1.3-7.7); Neutrophils % (A) 94 %; Platelet Count 246 k/uL (150-450); RBC 4.52 m/uL (3.80-5.40); RDW 13.2 % (11.5-15.5); WBC 6.2 k/uL (3.8-10.6)
[2021-11-04 17:26] LABS: Albumin 3.2 g/dL (3.5-5.0); Calcium 7.8 mg/dL (8.4-10.2); Total Protein 5.3 g/dL (6.3-8.2)
[2021-11-04 17:32] LABS: Potassium 2.9 mmol/L (3.5-5.1)
[2021-11-04] MEDS ORDERED: Potassium Replacement Protocol 1 EACH MISC MISCELLANE PRN (17:39)
[2021-11-04] MEDS ORDERED: NALOXONE 0.4 MG/ML 1 ML VIAL IV PRN (18:03)
[2021-11-04] MEDS ORDERED: metroNIDAZOLE 250 MG TABLET PO ONE (18:06)
[2021-11-04] MEDS ORDERED: LEVOFLOXACIN 250 MG TAB PO STA (18:06)
[2021-11-04] MEDS: SODIUM CHLORIDE 0.9% 1,000 ML IV SCH (18:47)
[2021-11-04] MEDS: POTASSIUM CHLORIDE 10 MEQ in WATER FOR INJECTION 1 100ML.BAG IVPB SCH ×3 (18:48→23:19)
[2021-11-04 19:12] LABS: Appearance,Urine Cloudy (Clear); Bacteria,Urine Rare /hpf; Bilirubin,Urine Negative (Negative); Blood,Urine Trace (Negative); Color,Urine Light Red; Glucose,Urine (UA) Negative (Negative); Hyaline Casts,Urine 19 /lpf (0-2); Ketones,Urine Negative (Negative); Leukocyte Esterase,Urine Moderate (Negative); Mucus,Urine Occasional /hpf; Nitrite,Urine Negative (Negative); PH, Urine 5.5 (5.0-8.0); Protein,Urine 1+ (Negative); RBC,Urine 8 /hpf (0-5); Specific Gravity,Urine 1.023 (1.001-1.035); Squamous Epithelial Cell,Urine 2 /hpf (0-4); WBC,Urine 23 /hpf (0-5)
[2021-11-04] MEDS ORDERED: ONDANSETRON 4 MG/2 ML VIAL IVP PRN (21:29)
[2021-11-04] MEDS ORDERED: CALCIUM CARBONATE 500 MG CHEWABLE PO PRN (21:29)
[2021-11-04] MEDS ORDERED: MELATONIN 3 MG TABLET PO PRN (21:29)
[2021-11-04] MEDS ORDERED: ACETAMINOPHEN TAB 325 MG TAB PO PRN (21:29)
[2021-11-04] MEDS: ALBUTEROL NEBULIZED 2.5 MG/3 ML INHALATION SCH (23:13)
[2021-11-04] MEDS: ATORVASTATIN 20 MG TAB PO SCH (23:20)
[2021-11-04] MEDS: lamoTRIgine 100 MG TAB PO SCH (23:20)
[2021-11-04] MEDS: lamoTRIgine 25 MG TAB PO SCH (23:20)
[2021-11-04] MEDS: CYCLOBENZAPRINE 10 MG TAB PO SCH (23:20)
[2021-11-05] MEDS: POTASSIUM CHLORIDE 10 MEQ in WATER FOR INJECTION 1 100ML.BAG IVPB SCH ×3 (00:34→02:51)
[2021-11-05] MEDS: SODIUM CHLORIDE 0.9% 1,000 ML IV SCH ×2 (02:51→08:56)
[2021-11-05 06:16] LABS: African American GFR (CKD) >90 (>60 ml/min/1.73 sqM); Anion Gap 4 mmol/L; Blood Urea Nitrogen 14 mg/dL (7-17); Calcium 7.8 mg/dL (8.4-10.2); Carbon Dioxide 21 mmol/L (22-30); Chloride 110 mmol/L (98-107); Glucose 89 mg/dL (74-99); Non-African American GFR(CKD) >90 (>60 ml/min/1.73 sqM); Sodium 135 mmol/L (137-145)
[2021-11-05 06:27] LABS: Potassium 3.9 mmol/L (3.5-5.1)
[2021-11-05] MEDS: FLUoxetine HCL 20 MG CAP PO SCH (08:51)
[2021-11-05] MEDS: PANTOPRAZOLE 40 MG TABLET PO SCH (08:51)
[2021-11-05] MEDS: GABAPENTIN 100 MG CAP PO SCH (08:51)
[2021-11-05] MEDS: HYDROcodone/APAP 7.5-325MG 1 EACH TAB PO SCH ×2 (08:52→19:31)
[2021-11-05] MEDS: lamoTRIgine 25 MG TAB PO SCH ×2 (08:53→19:31)
[2021-11-05] MEDS: lamoTRIgine 100 MG TAB PO SCH ×2 (08:53→19:31)
[2021-11-05] MEDS: ALBUTEROL NEBULIZED 2.5 MG/3 ML INHALATION SCH (09:35)
[2021-11-05] MEDS: IPRATROPIUM 0.5 MG/2.5 ML NEBU INHALATION SCH (09:36)
[2021-11-05] MEDS: NITROFURANTOIN MONOHYD/M-CRYST 100 MG CAP PO SCH ×2 (11:10→20:43)
[2021-11-05] MEDS: predniSONE 20 MG TAB PO SCH (11:10)
[2021-11-05] MEDS: BUDESONIDE 1 MG/2 ML NEBU INHALATION SCH ×2 (12:17→20:26)
[2021-11-05] MEDS: IPRATROPIUM-ALBUTEROL 3 ML NEB INHALATION SCH ×4 (12:17→20:27)
[2021-11-05] MEDS: NICOTINE 21MG/24HR PATCH TRANSDERM SCH (13:51)
--- NOTE | 2021-11-05 13:52 | P.HPIM ---
History of Present Illness H&P Date: 11/04/21 Chief Complaint: Diarrhea This is a pleasant 65-year-old patient we saw in the ER follows with Dr. Barragan. Chronic stable medical conditions include GERD, hypertension, hype rlipidemia history of cerebral aneurysm rupture with some left hand and left arm and left leg weakness history of seizures, chronic low back pain from herniated disc L3-L4 anxiety depression. Patient presents with 4 days of diarrhea anywhere from 4-6 times a day. Also had some fever and chills for about 3 days. Lower abdominal pain. Patient also having urinary burning and frequency. Was started on nitrofurantoin by her family doctor. Had received a couple of doses. Feeling tired rundown in the ER. Review of systems: GEN.: Tired fever or chills decreased appetite EYES: None HEENT: None NECK: None RESPIRATORY: Some wheezing and shortness of breath CARDIOVASCULAR: None GASTROINTESTINAL: As above GENITOURINARY: As above MUSCULOSKELETAL: Joint pains LYMPHATICS: None HEMATOLOGICAL: None PSYCHIATRY: None NEUROLOGICAL: None Past medical history to include: GERD, hypertension, hyperlipidemia, seizure disorder, cerebral aneurysm rupture right-sided occipital lobe stroke with some left arm and left leg weakness in 1988. Herniated disc L3-L4 anxiety depression. Social history: Lives alone. Smoking a pack a day for close to 40 years. No alcohol. Family history: colon Lung cancer Physical examination: VITAL SIGNS: 98.6, 75, 18, 99/55, 95% room air GENERAL: BMI 23.6, reclining in bed, awake, tired. EYES: Pupils equal. Conjunctiva normal. HEENT: External appearance of nose and ears normal, oral cavity grossly normal. NECK: JVD not raised; masses not palpable. HEART: First and second heart sounds are normal; no edema. LUNGS: Respiratory rate increased; decreased breath sounds prolonged expiration and wheezing. ABDOMEN: Soft, mildly tender, liver spleen not palpable, no masses palpable. PSYCH: [Alert and oriented x3; mood and affect tired l. MUSCULOSKELETAL:No Clubbing/cyanosis;muscles-grossly intact NEUROLOGICAL: Cranial nerves grossly intact; no facial asymmetry, power and sensation grossly intact. LYMPHATICS: No lymph nodes palpable in the axilla and neck INVESTIGATIONS, reviewed in the clinical context: White count 6.2 hemoglobin 13.1 platelets 246 sodium 132 potassium 2.9 BUN 20 creatinine 1.11 Lactic acid 3.7 UA positive for leukoesterase trace WBC EKG tracing personally reviewed by me-no sinus rhythm. Some ST-T wave changes. Assessment and plan: -Acute gastroenteritis. Possibly vital. Present for 3-4 days. IV fluids. Liquid diet. -Acute kidney injury, likely prerenal from dehydration IV fluids -Acute COPD exacerbation in a current smoker Bronchodilators. Steroids -Chronic nicotine dependence, cigarette smoker Nicotine patch -Hypotension from volume loss Follow blood pressure. IV fluids -GERD Prilosec 20 mg a day -Essential hypertension, currently blood pressures running low Hold losartan 50 mg a day -Primary osteoarthritis including 20 to disc L3-L4 [place] 7.5 twice a day, Flexeril 10 mg daily at bedtime -Hyperlipidemia Crestor 10 mg daily at bedtime -Depression and anxiety Prozac 20 mg a -Seizure disorder Keppra 1500 mg by mouth twice a day Lamictal 50 mg twice a day -Acute UTI with cystitis Nitrofurantoin continue IV fluids. Resume home medications. Liquid diet. Repeat labs. Fall precautions. Follow labs. Given the complexity and severity of patient's condition expect the patient to be in the hospital at least for 2 overnights Past Medical History Past Medical History: CVA/TIA, GERD/Reflux, Hyperlipidemia, Hypertension, Seizure Disorder Additional Past Medical History / Comment(s): 07/12/15 Pt woke this AM and accidentally took extra dose of her xanax. She normally takes 0.5mg xanax but by accident, took 2 tablets. After taking xanax, she couldn't stand up-had weakness in both legs. Pt has some weakness/clumsiness in L arm and L leg from old CVA. Family also noticed slurred speech this AM. Pt is being admitted with clinical impression of TIA and acute maxoid sinusitis. 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 History of Any Multi-Drug Resistant Organisms: None Reported Past Surgical History: Hysterectomy, Tonsillectomy, Tubal Ligation Additional Past Surgical History / Comment(s): Aldo aneurysm clipping, sinus surgery, R carpal and R antecubital tunnel releases, 2 back injections for pain with last one done 03/14/15, hemorrhoidectomy, colonoscopy 2014 which was normal. Past Anesthesia/Blood Transfusion Reactions: No Reported Reaction Additional Past Anesthesia/Blood Transfusion Reaction / Comment(s): Pt states she has never received blood. Past Psychological History: Anxiety, Depression Smoking Status: Current every day smoker Past Alcohol Use History: None Reported Past Drug Use History: Marijuana - Past Family History Father Family Medical History: Cancer, COPD, Pneumonia Additional Family Medical History / Comment(s): Father had colon and lung cancer. He was a smoker. He of pneumonia at age 72 yrs. Mother Family Medical History: Vascular Disorder Additional Family Medical History / Comment(s): Mother has caratid artery disease- she is living and is 87yrs old. Medications and Allergies Home Medications Medication Instructions Recorded Confirmed Type Cyclobenzaprine [Flexeril] 10 mg PO HS@2200 07/12/15 11/04/21 History HYDROcodone/APAP 7.5-325MG [Frostproof 1 tab PO BID@1000,1400 07/12/15 11/04/21 History 7.5-325] Hydrochlorothiazide 12.5 mg PO DAILY@1000 07/12/15 11/04/21 History [hydroCHLOROthiazide] Losartan Potassium 50 mg PO DAILY@1000 07/12/15 11/04/21 History Omeprazole [PriLOSEC] 20 mg PO DAILY@1000 07/12/15 11/04/21 History Rosuvastatin [Crestor] 10 mg PO HS@2200 06/04/20 11/04/21 History levETIRAcetam [Keppra] 1,500 mg PO BID@1000,0 06/04/20 11/04/21 History Albuterol Sulfate [Ventolin HFA] 2 puff INHALATION RT-BID@1000,219911/04/21 11/04/21 History FLUoxetine HCL [PROzac] 20 mg PO DAILY@1000 11/04/21 11/04/21 History Gabapentin [Neurontin] 100 mg PO TID@1000,1400,219911/04/21 11/04/21 History Nitrofurantoin Monohyd/M-Cryst 100 mg PO BID@1000,2200 11/04/21 11/04/21 History [Macrobid] Tiotropium 18 Mcg/Puff [Spiriva] 1 puff INHALATION RT-DAILY@1000 11/04/21 11/04/21 History lamoTRIgine [lamoTRIgine ODT] 50 mg PO BID@1000,0 11/04/21 11/04/21 History lamoTRIgine [lamoTRIgine ODT] 200 mg PO BID@1000,219911/04/21 11/04/21 History predniSONE 10 mg PO DAILY #30 tab 11/05/21 Rx Allergies Allergy/AdvReac Type Severity Reaction Status Date / Time codeine Allergy Unknown Verified 11/04/21 17:21 topiramate [From Topamax] Allergy Unknown Verified 11/04/21 17:21 Physical Exam Vitals: Vital Signs Temp Pulse Resp BP Pulse Ox 11/04/21 20:26 98.8 F 92 20 143/81 95 11/04/21 18:42 78 18 107/66 94 L 11/04/21 16:51 78 18 90/56 96 11/04/21 15:47 98.6 F 75 18 99/55 95 Intake and Output 11/04/21 11/04/21 11/04/21 06:59 14:59 22:59 Other: Weight 56.699 kg Results CBC & Chem 7: 11/04/21 16:51 11/05/21 05:25 Labs: Abnormal Lab Results - Last 24 Hours (Table) 11/04/21 11/04/21 11/04/21 Range/Units 16:51 16:51 16:51 Lymphocytes # 0.1 L (1.0-4.8) k/uL Sodium 132 L (137-145) mmol/L Potassium 2.9 L (3.5-5.1) mmol/L Carbon Dioxide 21 L (22-30) mmol/L BUN 20 H (7-17) mg/dL Creatinine 1.11 H (0.52-1.04) mg/dL Glucose 149 H (74-99) mg/dL Plasma Lactic Acid [place] 3.7 H* (0.7-2.0) mmol/L Calcium 7.8 L (8.4-10.2) mg/dL Total Protein 5.3 L (6.3-8.2) g/dL Albumin 3.2 L (3.5-5.0) g/dL Lipase 378 H (23-300) U/L Urine Appearance (Clear) Urine Protein (Negative) Urine Blood (Negative) Ur Leukocyte Esterase (Negative) Urine RBC (0-5) /hpf Urine WBC (0-5) /hpf Urine Bacteria (None) /hpf Hyaline Casts (0-2) /lpf Urine Mucus (None) /hpf 11/04/21 Range/Units 18:41 Lymphocytes # (1.0-4.8) k/uL Sodium (137-145) mmol/L Potassium (3.5-5.1) mmol/L Carbon Dioxide (22-30) mmol/L BUN (7-17) mg/dL Creatinine (0.52-1.04) mg/dL Glucose (74-99) mg/dL Plasma Lactic Acid [place] (0.7-2.0) mmol/L Calcium (8.4-10.2) mg/dL Total Protein (6.3-8.2) g/dL Albumin (3.5-5.0) g/dL Lipase (23-300) U/L Urine Appearance Cloudy H (Clear) Urine Protein 1+ H (Negative) Urine Blood Trace H (Negative) Ur Leukocyte Esterase Moderate H (Negative) Urine RBC 8 H (0-5) /hpf Urine WBC 23 H (0-5) /hpf Urine Bacteria Rare H (None) /hpf Hyaline Casts 19 H (0-2) /lpf Urine Mucus Occasional H (None) /hpf
[2021-11-05] MEDS: ENOXAPARIN 40 MG/0.4 ML SYRINGE SQ SCH (13:55)
--- NOTE | 2021-11-05 14:01 | P.PN ---
Progress Note - Text Progress Note Date: 11/05/21 Chief Complaint: Diarrhea This is a pleasant 65-year-old patient we saw in the ER follows with Dr. Barragan. Chronic stable medical conditions include GERD, hypertension, hyperlipidemia history of cerebral aneurysm rupture with some left hand and left arm and left leg weakness history of seizures, chronic low back pain from herniated disc L3-L4 anxiety depression. Patient presents with 4 days of diarrhea anywhere from 4-6 times a day. Also had some fever and chills for about 3 days. Lower abdominal pain. Patient also having urinary burning and frequency. Was started on nitrofurantoin by her family doctor. Had received a couple of doses. Feeling tired rundown in the ER. Admitted with acute gastroenteritis, COPD exacerbation, acute kidney injury dehydration. IV fluids. Liquid diet. Bronchodilators, steroids. November 05: Diarrhea better. Tolerated liquid diet. Diet will be advanced. Some wheezing. Weakness. Continue IV fluids. Active Medications Acetaminophen (Acetaminophen Tab 325 Mg Tab) 650 mg PO Q6HR PRN PRN Reason: Mild Pain or Fever > 100.5 Hydrocodone Bitart/Acetaminophen (Hydrocodone/Apap 7.5-325mg 1 Each Tab) 1 each PO BID [facility] Last Admin: 11/05/21 08:52 Dose: 1 each Documented by: Albuterol/Ipratropium (Ipratropium-Albuterol 3 Ml Neb) 3 ml INHALATION RT-QID [facility] Last Admin: 11/05/21 12:26 Dose: 3 ml Documented by: Atorvastatin Calcium (Atorvastatin 20 Mg Tab) 20 mg PO HS [facility] Last Admin: 11/04/21 23:20 Dose: 20 mg Documented by: Budesonide (Budesonide 1 Mg/2 Ml Nebu) 1 mg INHALATION RT-BID [facility] Last Admin: 11/05/21 12:17 Dose: Not Given Documented by: Calcium Carbonate/Glycine (Calcium Carbonate 500 Mg Chewable) 1,000 mg PO Q4HR PRN PRN Reason: Dyspepsia Cyclobenzaprine HCl (Cyclobenzaprine 10 Mg Tab) 10 mg PO HS [facility] Last Admin: 11/04/21 23:20 Dose: 10 mg Documented by: Enoxaparin Sodium (Enoxaparin 40 Mg/0.4 Ml Syringe) 40 mg SQ DAILY [facility] Last Admin: 11/05/21 13:55 Dose: 40 mg Documented by: Fluoxetine HCl (Fluoxetine Hcl 20 Mg Cap) 20 mg PO DAILY [facility] Last Admin: 11/05/21 08:51 Dose: 20 mg Documented by: Gabapentin (Gabapentin 100 Mg Cap) 100 mg PO DAILY [facility] Last Admin: 11/05/21 08:51 Dose: 100 mg Documented by: Sodium Chloride (Saline 0.9%) 1,000 mls @ 130 mls/hr IV .[id number] [facility] Last Admin: 11/05/21 08:56 Dose: 130 mls/hr Documented by: Ipratropium [place] (Ipratropium 0.5 Mg/2.5 Ml Nebu) 0.5 mg INHALATION RT-DAILY [facility] Last Admin: 11/05/21 09:36 Dose: Not Given Documented by: Lamotrigine (Lamotrigine 25 Mg Tab) 50 mg PO BID [facility] Last Admin: 11/05/21 08:53 Dose: 50 mg Documented by: Lamotrigine (Lamotrigine 100 Mg Tab) 200 mg PO BID [facility] Last Admin: 11/05/21 08:53 Dose: 200 mg Documented by: Levetiracetam (Levetiracetam 750 Mg Tab) 1,500 mg PO BID [facility] Last Admin: 11/05/21 08:51 Dose: 1,500 mg Documented by: Melatonin (Melatonin 3 Mg Tablet) 3 mg PO HS PRN PRN Reason: Insomnia Miscellaneous Information (Potassium Replacement Protocol 1 Each Misc) 1 each MISCELLANE DAILY PRN; Protocol PRN Reason: Per Protocol Naloxone HCl (Naloxone 0.4 Mg/Ml 1 Ml Vial) 0.2 mg IV Q2M PRN PRN Reason: Opioid Reversal Nicotine (Nicotine 21mg/24hr Patch) 1 patch TRANSDERM DAILY [facility] Last Admin: 11/05/21 13:51 Dose: 1 patch Documented by: Nitrofurantoin Macrocrystals (Nitrofurantoin Monohyd/M-Cryst 100 Mg Cap) 100 mg PO BID@1000,2200 [facility]; Protocol Stop: 11/06/21 23:00 Last Admin: 11/05/21 11:10 Dose: 100 mg Documented by: Ondansetron HCl (Ondansetron 4 Mg/2 Ml Vial) 4 mg IVP Q8HR PRN PRN Reason: Nausea And Vomiting Pantoprazole Sodium (Pantoprazole 40 Mg Tablet) 40 mg PO AC-BRKFST [facility] Last Admin: 04/19/22 08:51 Dose: 40 mg Documented by: Prednisone (Prednisone 20 Mg Tab) 40 mg PO DAILY [facility] Last Admin: 11/05/21 11:10 Dose: 40 mg Documented by: Past medical history to include: GERD, hypertension, hyperlipidemia, seizure disorder, cerebral aneurysm rupture right-sided occipital lobe stroke with some left arm and left leg weakness in 1988. Herniated disc L3-L4 anxiety depression. Social history: Lives alone. Smoking a pack a day for close to 40 years. No alcohol. Family history: colon Lung cancer Physical examination: VITAL SIGNS: 98, 79, 17, 126/68, 94% room air GENERAL: reclining in bed, awake, tired. EYES: Pupils equal. Conjunctiva normal. HEENT: External appearance of nose and ears normal, oral cavity grossly normal. NECK: JVD not raised; masses not palpable. HEART: First and second heart sounds are normal; no edema. LUNGS: Respiratory rate increased; decreased breath sounds , wheezing. ABDOMEN: Soft, mildly tender, liver spleen not palpable, no masses palpable. PSYCH: [Alert and oriented x3; mood and affect tired l. MUSCULOSKELETAL:No Clubbing/cyanosis;muscles-grossly intact INVESTIGATIONS, reviewed in the clinical context: November 05: Potassium 3.9 creatinine 0.61 White count 6.2 hemoglobin 13.1 platelets 246 sodium 132 potassium 2.9 BUN 20 creatinine 1.11 Lactic acid 3.7 UA positive for leukoesterase trace WBC EKG tracing personally reviewed by me-no sinus rhythm. Some ST-T wave changes. Assessment and plan: -Acute gastroenteritis. Possibly vital. Present for 3-4 days. IV fluids.: Improving -Acute kidney injury, likely prerenal from dehydration: Better IV fluids -Acute COPD exacerbation in a current smoker: Slow to respond Bronchodilators. Steroids -Chronic nicotine dependence, cigarette smoker Nicotine patch -Hypotension from volume loss Follow blood pressure. IV fluids -GERD Prilosec 20 mg a day -Essential hypertension, currently blood pressures running low Start losartan 50 mg a day tomorrow -Primary osteoarthritis including 20 to disc L3-L4 [place] 7.5 twice a day, Flexeril 10 mg daily at bedtime -Hyperlipidemia Crestor 10 mg daily at bedtime -Depression and anxiety Prozac 20 mg a -Seizure disorder Keppra 1500 mg by mouth twice a day Lamictal 50 mg twice a day -Acute UTI with cystitis Nitrofurantoin continue IV fluids. Advance diet. Bronchodilators. Steroids. Start losartan tomorrow. Up in chair as tolerated.
[2021-11-05] MEDS: LACTATED RINGERS 1,000 ML IV SCH (16:43)
[2021-11-05] MEDS: CYCLOBENZAPRINE 10 MG TAB PO SCH (19:31)
[2021-11-05] MEDS: ATORVASTATIN 20 MG TAB PO SCH (19:31)
[2021-11-06] MEDS: LACTATED RINGERS 1,000 ML IV SCH (01:53)
[2021-11-06 07:14] VITALS: RESP 18
[2021-11-06] MEDS: BUDESONIDE 1 MG/2 ML NEBU INHALATION SCH ×2 (08:14→19:28)
[2021-11-06] MEDS: IPRATROPIUM-ALBUTEROL 3 ML NEB INHALATION SCH ×4 (08:14→19:28)
[2021-11-06] MEDS: IPRATROPIUM 0.5 MG/2.5 ML NEBU INHALATION SCH (08:20)
[2021-11-06] MEDS: predniSONE 20 MG TAB PO SCH (08:56)
[2021-11-06] MEDS: NITROFURANTOIN MONOHYD/M-CRYST 100 MG CAP PO SCH ×2 (08:56→21:59)
[2021-11-06] MEDS: NICOTINE 21MG/24HR PATCH TRANSDERM SCH (08:56)
[2021-11-06] MEDS: LOSARTAN 50 MG TAB PO SCH (08:57)
[2021-11-06] MEDS: lamoTRIgine 100 MG TAB PO SCH ×2 (08:57→21:58)
[2021-11-06] MEDS: lamoTRIgine 25 MG TAB PO SCH ×2 (08:57→21:59)
[2021-11-06] MEDS: HYDROcodone/APAP 7.5-325MG 1 EACH TAB PO SCH ×2 (08:57→21:58)
[2021-11-06] MEDS: PANTOPRAZOLE 40 MG TABLET PO SCH (08:58)
[2021-11-06] MEDS: FLUoxetine HCL 20 MG CAP PO SCH (08:58)
[2021-11-06] MEDS: ENOXAPARIN 40 MG/0.4 ML SYRINGE SQ SCH (08:58)
[2021-11-06] MEDS: GABAPENTIN 100 MG CAP PO SCH (09:05)
[2021-11-06 09:14] LABS: HCT 34.4 % (37.2-46.3); HGB 10.9 g/dL (12.0-15.0); MCH 27.9 pg (27.0-32.0); MCHC 31.7 g/dL (32.0-37.0); Mean Platelet Volume 9.6 fL (9.5-12.2); NRBC Per 100 WBC 0 /100 WBCS (0.0-0.0); Platelet Count 229 X 10*3/uL (140-440); RBC 3.91 X 10*6/uL (4.10-5.20); RDW 12.6 % (11.5-14.5)
[2021-11-06 09:29] LABS: African American GFR (CKD) 111.6 (60.0-200.0); Anion Gap 10.2 mmol/L (10.00-18.00); BUN/Creat Ratio 16.17 Ratio (12.00-20.00); Blood Urea Nitrogen 9.7 mg/dL (9.0-27.0); Calcium 8.6 mg/dL (8.7-10.3); Carbon Dioxide 24.8 mmol/L (20.0-27.5); Magnesium 2.2 mg/dL (1.5-2.4); Non-African American GFR(CKD) 96.3 (60.0-200.0); Potassium 3.6 mmol/L (3.5-5.5)
--- NOTE | 2021-11-06 09:45 | XR ---
EXAMINATION TYPE: XR chest 1V portable DATE OF EXAM: 11/06/2021 HISTORY: Shortness of breath. COMPARISON: 07/12/15 TECHNIQUE: Single view of the chest is submitted. FINDINGS: Demonstrated are scattered senescent parenchymal change. There is no evidence for focal infiltrate. The heart is stable. Hilar and mediastinal structures are within normal limits. Degenerative changes are seen of the dorsal spine. IMPRESSION: 1. Chronic changes without evidence for acute pulmonary disease.
--- NOTE | 2021-11-06 10:20 | P.PN ---
Subjective from records This is a pleasant 65-year-old patient we saw in the ER follows with Dr. Barragan. Chronic stable medical conditions include GERD, hypertension, hyperlipidemia history of cerebral aneurysm rupture with some left hand and left arm and left leg weakness history of seizures, chronic low back pain from herniated disc L3-L4 anxiety depression. Patient presents with 4 days of diarrhea anywhere from 4-6 times a day. Also had some fever and chills for about 3 days. Lower abdominal pain. Patient also having urinary burning and frequency. Was started on nitrofurantoin by her family doctor. Had received a couple of doses. Feeling tired rundown in the ER. Admitted with acute gastroenteritis, COPD exacerbation, acute kidney injury de hydration. IV fluids. Liquid diet. Bronchodilators, steroids. November 05: Diarrhea better. Tolerated liquid diet. Diet will be advanced. Some wheezing. Weakness. Continue IV fluids. Subjective: Resume in the care of the patient today 11/06/2021 This is a pleasant 65 years old female who presents with weakness, hypertension and diarrhea thought to have UTI and gastroenteritis as thought this is viral infection by the previous medical team she was treated conservatively with IV fluids and symptomatic treatment. Also patient kept on nitrofurantoin for her UTI. Today she is fully awake and oriented with no abdominal pain, she states that she had to bowel movement this morning but they are more formed and soft rather than watery, she tolerates diet well. Because of this and her hypertension improved, currently blood pressure 165/77 therefore we will discontinue her Ringer lactate and keep monitoring for 24 hours. She states that she had dysuria on admission which is improved now. No urine culture has been sent. She has some difficulty on walking related to her chronic vertigo, she had it for 1 year and she states but she denies significant exertional dyspnea This morning patient is a little short of breath since yesterday with little coughing, with decreased air entry while she is currently heavy smoker at home, she is already placed on a breathing treatment and prednisone 40 mg daily. However on exam she has evidence of decreased air entry and chest x-ray showing chronic COPD changes with no acute pulmonary process. Patient's with mild exertional dyspnea only. Bladder scan checked yesterday it was 200-301 and 100-150. Objective - Vital Signs Vital signs: Vital Signs Temp 98.7 F 11/06/21 07:13 Pulse 78 11/06/21 08:39 Resp 18 11/06/21 07:13 BP 165/77 11/06/21 07:13 Pulse Ox 92 L 11/06/21 07:13 Intake & Output 11/05/21 11/06/21 11/06/21 18:59 06:59 18:59 Intake Total 750 Balance 750 Intake: Intake, IV Titration 750 Amount Lactated Ringers 1,000 ml 750 @ 75 mls/hr IV .[id number] [facility] Rx#:[id number] Other: # Voids 4 2 - Exam GENERAL: The patient is alert and oriented x3, not in any acute distress. Well developed, well nourished. HEENT: Pupils are round and equally reacting to light. EOMI. No scleral icterus. No conjunctival pallor. Normocephalic, atraumatic. No pharyngeal erythema. No thyromegaly. CARDIOVASCULAR: S1 and S2 present. No murmurs, rubs, or gallops. - PULMONARY: Chest is clear to auscultation, no wheezing or crackles. mildly Decreased air entry on both sides with mild prolongation of expiration ABDOMEN: Soft, nontender, nondistended, normoactive bowel sounds. No palpable organomegaly. MUSCULOSKELETAL: No joint swelling or deformity. EXTREMITIES: No cyanosis, clubbing, or pedal edema. NEUROLOGICAL: Gross neurological examination did not reveal any focal deficits. SKIN: No rashes. no petechiae. - Labs CBC & Chem 7: 11/06/21 04:52 11/06/21 04:52 Labs: Abnormal Lab Results - Last 24 Hours (Table) 11/06/21 11/06/21 Range/Units 04:52 04:52 RBC 3.91 L (4.10-5.20) X 10*6/uL Hgb 10.9 L (12.0-15.0) g/dL Hct 34.4 L (37.2-46.3) % MCHC 31.7 L (32.0-37.0) g/dL Calcium 8.6 L (8.7-10.3) mg/dL Assessment and Plan Assessment: -Acute gastroenteritis. Possibly viral. Improving. Discontinue IV fluids and monitor Continue supportive care -Acute urinary tract infection is suspected Continue with nitrofurantoin Try to repeat urine analysis -Acute COPD exacerbation in a current smoker: Slow to respond Agree with Bronchodilators. Steroids, both prednisone and inhalation steroids -Acute kidney injury, likely prerenal from dehydration: Resolved. DC IV fluid -Chronic nicotine dependence, cigarette smoker Nicotine patch Patient is counseled to quit and she agrees -Hypotension from volume loss. Improved Follow discontinue IV fluids -History of GERD Prilosec 20 mg a day -Essential hypertension, currently blood pressures running low Start losartan 50 mg a day , which is her home medication -Primary osteoarthritis including 20 to disc L3-L4 [place] 7.5 twice a day, Flexeril 10 mg daily at bedtime -Hyperlipidemia Crestor 10 mg daily at bedtime -Depression and anxiety, not an active issue Prozac 20 mg a -Seizure disorder Keppra 1500 mg by mouth twice a day Lamictal 50 mg twice a day -Chronic vertigo, for 1 year as per patient follow-up as an outpatient DVT prophylaxis: Lovenox GI prophylaxis: Protonix PT/OT ordered
[2021-11-06 11:18] LABS: Appearance,Urine Clear (Clear); Bilirubin,Urine Negative (Negative); Blood,Urine Small (Negative); Color,Urine Yellow; Glucose,Urine (UA) Negative (Negative); Ketones,Urine Negative (Negative); Leukocyte Esterase,Urine Negative (Negative); Mucus,Urine Rare /hpf; Nitrite,Urine Negative (Negative); Protein,Urine Trace (Negative); RBC,Urine 3 /hpf (0-5); Specific Gravity,Urine 1.014 (1.001-1.035); Squamous Epithelial Cell,Urine 1 /hpf (0-4); Urobilinogen,Urine <2.0 mg/dL (<2.0); WBC,Urine 4 /hpf (0-5)
[2021-11-06 11:52] LABS: Basophils # (A) 0.03 X 10*3/uL (0.00-0.10); Basophils % (A) 0.4 %; Eosinophils # (A) 0 X 10*3/uL (0.04-0.35); Eosinophils % (A) 0 %; Immature Grans, Automated 0.7 %; Lymphocytes # (A) 1.48 X 10*3/uL (0.90-5.00); Lymphocytes % (A) 20.8 %; Monocytes # (A) 0.61 X 10*3/uL (0.20-1.00); Monocytes % (A) 8.6 %; Neutrophils # (A) 4.93 X 10*3/uL (1.80-7.70); Neutrophils % (A) 69.5 %
[2021-11-06 11:53] LABS: RBC Morphology NORMAL
[2021-11-06] MEDS: CYCLOBENZAPRINE 10 MG TAB PO SCH (21:58)
[2021-11-06] MEDS: ATORVASTATIN 20 MG TAB PO SCH (21:58)
[2021-11-07 08:01] VITALS: BP 161/77; TEMP 98.6
[2021-11-07] MEDS: BUDESONIDE 1 MG/2 ML NEBU INHALATION SCH (09:24)
[2021-11-07] MEDS: IPRATROPIUM-ALBUTEROL 3 ML NEB INHALATION SCH ×2 (09:24→12:29)
[2021-11-07] MEDS: IPRATROPIUM 0.5 MG/2.5 ML NEBU INHALATION SCH (09:24)
[2021-11-07 09:44] VITALS: PULSE 100
[2021-11-07] MEDS: lamoTRIgine 100 MG TAB PO SCH (09:44)
[2021-11-07] MEDS: LOSARTAN 50 MG TAB PO SCH (09:45)
[2021-11-07] MEDS: predniSONE 20 MG TAB PO SCH (09:45)
[2021-11-07] MEDS: HYDROcodone/APAP 7.5-325MG 1 EACH TAB PO SCH (09:45)
[2021-11-07] MEDS: lamoTRIgine 25 MG TAB PO SCH (09:45)
[2021-11-07] MEDS: PANTOPRAZOLE 40 MG TABLET PO SCH (09:45)
[2021-11-07] MEDS: FLUoxetine HCL 20 MG CAP PO SCH (09:45)
[2021-11-07] MEDS: NICOTINE 21MG/24HR PATCH TRANSDERM SCH (09:46)
[2021-11-07] MEDS: ENOXAPARIN 40 MG/0.4 ML SYRINGE SQ SCH (09:46)
[2021-11-07] MEDS: GABAPENTIN 100 MG CAP PO SCH (09:55)
[2021-11-07 10:50] LABS: HCT 39.6 % (34.0-46.0); MCH 29.4 pg (25.0-35.0); MCHC 32.9 g/dL (31.0-37.0); MCV 89.2 fL (80.0-100.0); Mean Platelet Volume 7.1; Platelet Count 286 k/uL (150-450); RBC 4.44 m/uL (3.80-5.40); RDW 12.7 % (11.5-15.5); WBC 9.9 k/uL (3.8-10.6)
--- NOTE | 2021-11-07 19:56 | P.DS ---
Providers Date of admission: 11/04/21 18:04 Attending physician: Jameson Hagan Primary care physician: Alejandro Barragan [facility] Course: Diagnoses -Acute gastroenteritis. Possibly viral. Improved -Acute urinary tract infection. Resolved no need for antibiotics upon discharge -Acute COPD exacerbation in a current smoker: Improved and patient is stable for discharge -Acute hypoxic respiratory failure, patient qualify for home oxygen -Acute kidney injury, likely prerenal from dehydration: Resolved -Chronic nicotine dependence, cigarette smoker -Hypotension from volume loss. Improved -History of GERD -Essential hypertension, -Primary osteoarthritis including 20 to disc L3-L4 -Hyperlipidemia -History of Depression and anxiety, not an active issue -History of Seizure disorder -Chronic vertigo, for 1 year as per patient Hospital course: This is a pleasant 65 years old female who presents with weakness, hypotension and diarrhea thought to have UTI and gastroenteritis as thought this is viral infection by the previous medical team she was treated conservatively with IV fluids and symptomatic treatment. Also patient kept on nitrofurantoin for her UTI. Patient showed interval improvement and her blood pressure improved, IV fluids stopped. Her diarrhea stopped no abdominal pain. She tolerates diet well. She has been eating 50-100% of her meals. Repeat urine analysis is negative. Patient denies any urinary symptoms. Antibiotics. No need for further treatment. Patient also found to have some COPD exacerbation. Her breathing has been stable for the last 3-4 days on prednisone 40 mg. Patient remains on 2 L/m of oxygen, her breathing improved and she denies exertional dyspnea of the day of discharge. No coughing. No chest pain. She qualify for home oxygen, albuterol inhaler and nebulizers with the machine is a provided for her, top case assembler on the case. Patient was counseled extensively to quit smoking and she agrees, she told me in more than one occasion "this is a wake-up call for me". Also patient instructed to follow up with signals analyst as an outpatient and she agrees with the appointments made for her with Dr. Harris on 12/03 and states she will follow up Patient will be discharged on tapering steroids as well. Patient instructed about her treatment on signs and symptoms to seek medical help and she verbalized understanding and acceptance. Written instruction is provided. Problems and management plan were discussed with the patient and he verbalized understanding and acceptance Patient was found stable and can be discharged home however he needs follow-up as an outpatient. Patient was instructed to follow up with PCP Dr. Barragan within one week and patient agrees with the appointments made for him on 11/11 as stated she will follow-up. Also she is with her appointment with Dr. Harris on 12/03 Physical exam Gen: patient is a AAOx3, no distress CVS: S1-S2, RRR, no murmur Lungs: B/L CTA, no wheezing Abdomen: soft, no distention, no tenderness, positive bowel sounds Extremity: no leg edema or induration Time spent more than 35 minutes Patient Condition at Discharge: Stable Plan - Discharge Summary New Discharge Prescriptions: New Albuterol Inhaler [Ventolin Hfa Inhaler] 1 puff INHALATION RT-QID PRN #8 gm PRN Reason: Shortness Of Breath Ipratropium-Albuterol Nebulize [Duoneb 0.5 mg-3 mg/3 ml Soln] 3 ml INHALATION QID PRN #90 ml PRN Reason: Shortness Of Breath Or Wheezing predniSONE 10 mg PO DIRECTED #40 tab Continue HYDROcodone/APAP 7.5-325MG [[place] 7.5-325] 1 tab PO BID@1000,1400 Omeprazole [PriLOSEC] 20 mg PO DAILY@1000 Cyclobenzaprine [Flexeril] 10 mg PO HS@2200 Hydrochlorothiazide [hydroCHLOROthiazide] 12.5 mg PO DAILY@1000 Losartan Potassium 50 mg PO DAILY@1000 levETIRAcetam [Keppra] 1,500 mg PO BID@1000,2200 Rosuvastatin [Crestor] 10 mg PO HS@2200 Tiotropium 18 Mcg/Puff [Spiriva] 1 puff INHALATION RT-DAILY@1000 Albuterol Sulfate [Ventolin HFA] 2 puff INHALATION RT-BID@1000,2200 lamoTRIgine [lamoTRIgine ODT] 200 mg PO BID@1000,2200 lamoTRIgine [lamoTRIgine ODT] 50 mg PO BID@1000,2200 Gabapentin [Neurontin] 100 mg PO TID@1000,1400,2200 FLUoxetine HCL [PROzac] 20 mg PO DAILY@1000 Discontinued Nitrofurantoin Monohyd/M-Cryst [Macrobid] 100 mg PO BID@1000,2200 Meclizine [Antivert] 25 mg PO TID@1000,1400,2200 Discharge Medication List Cyclobenzaprine [Flexeril] 10 mg PO HS@219907/12/15 [History] HYDROcodone/APAP 7.5-325MG [[place] 7.5-325] 1 tab PO BID@1000,139907/12/15 [History] Hydrochlorothiazide [hydroCHLOROthiazide] 12.5 mg PO DAILY@99907/12/15 [History] Losartan Potassium 50 mg PO DAILY@99907/12/15 [History] Omeprazole [PriLOSEC] 20 mg PO DAILY@99907/12/15 [History] Rosuvastatin [Crestor] 10 mg PO HS@219906/04/20 [History] levETIRAcetam [Keppra] 1,500 mg PO BID@999,219906/04/20 [History] Albuterol Sulfate [Ventolin HFA] 2 puff INHALATION RT-BID@999,219911/04/21 [History] FLUoxetine HCL [PROzac] 20 mg PO DAILY@99911/04/21 [History] Gabapentin [Neurontin] 100 mg PO TID@1000,1399,219911/04/21 [History] Tiotropium 18 Mcg/Puff [Spiriva] 1 puff INHALATION RT-DAILY@99911/04/21 [History] lamoTRIgine [lamoTRIgine ODT] 50 mg PO BID@999,219911/04/21 [History] lamoTRIgine [lamoTRIgine ODT] 200 mg PO BID@999,219911/04/21 [History] Albuterol Inhaler [Ventolin Hfa Inhaler] 1 puff INHALATION RT-QID PRN #8 gm 11/07/21 [Rx] Ipratropium-Albuterol Nebulize [Duoneb 0.5 mg-3 mg/3 ml Soln] 3 ml INHALATION QID PRN #90 ml 11/07/21 [Rx] predniSONE 10 mg PO DIRECTED #40 tab 11/07/21 [Rx] Follow up Appointment(s)/Referral(s): [facility] [NON-STAFF] - As Needed (oxygen and nebuzlier) Danny Harris DO [Doctor of Osteopathic Medicine] - 12/03/21 2:30 pm (Appt will be with Dr. Shalonda Aguilar.) [facility], [NON-STAFF] - As Needed Alejandro Barragan MD [Primary Care Provider] - 11/11/21 1:00 pm Patient Instructions/Handouts: Dehydration (DC) Activity/Diet/Wound Care/Special Instructions: Heart healthy diet Activity is restricted till you see your doctor if you develop worsening shortness of breath or wheezing, or fever or chest pain or any other concerning signs or symptoms please call 911 and come to emergency room Discharge Disposition: HOME WITH HOME HEALTH SERVICES
== END 2021-11-07 15:31 | disposition home health service (06) ==
LOC: EC 15:45 → 4SSUR 18:04 → INTOOBSV 18:04 → 4SSUR 20:58 → UNDODISIN 11-07 15:31
PROVIDERS: ADMIT Hospitalist; ATTEND Hospitalist
PROC: 3E0F7SF Introduction of Other Gas into Respiratory Tract, Via Natural or Artificial Opening (ICD-10-PCS; principal; 2021-11-04)
DX: K52.9 Noninfective gastroenteritis and colitis, unspecified (principal); N30.90 Cystitis, unspecified without hematuria; J44.1 Chronic obstructive pulmonary disease with (acute) exacerbation; J96.01 Acute respiratory failure with hypoxia; N17.9 Acute kidney failure, unspecified; I95.9 Hypotension, unspecified; F17.210 Nicotine dependence, cigarettes, uncomplicated; K21.9 Gastro-esophageal reflux disease without esophagitis; I10 Essential (primary) hypertension; E78.5 Hyperlipidemia, unspecified; E86.0 Dehydration; E87.6 Hypokalemia; F41.9 Anxiety disorder, unspecified; F32.A Depression, unspecified; G40.409 Other generalized epilepsy and epileptic syndromes, not intractable, without status epilepticus; I69.354 Hemiplegia and hemiparesis following cerebral infarction affecting left non-dominant side; G89.29 Other chronic pain; M19.91 Primary osteoarthritis, unspecified site; M51.26 Other intervertebral disc displacement, lumbar region; G47.00 Insomnia, unspecified; E66.9 Obesity, unspecified; Z68.23 Body mass index [BMI] 23.0-23.9, adult; Z79.899 Other long term (current) drug therapy; Z88.5 Allergy status to narcotic agent; Z88.8 Allergy status to other drugs, medicaments and biological substances; Z71.6 Tobacco abuse counseling; Z71.3 Dietary counseling and surveillance; Z98.51 Tubal ligation status; Z90.710 Acquired absence of both cervix and uterus; Z86.79 Personal history of other diseases of the circulatory system; Z80.1 Family history of malignant neoplasm of trachea, bronchus and lung; Z82.5 Family history of asthma and other chronic lower respiratory diseases; Z80.0 Family history of malignant neoplasm of digestive organs
CPT/HCPCS: 99285; 96361 ×3; 96366 ×2; 96372 ×3; 96365; 36415; 94640 ×5; 94760; 93005; 97116; 97161; 97535; 97165; 80053; 80048 ×2; 83605; 83690; 83735; 85025 ×2; 85027; 81001 ×2; 71045; G0378 ×4; S4990 ×3; J1650 ×3; J3480 ×2; J7512 ×3

== ENCOUNTER 2021-11-08 09:37 | Observation (INO) | payer OTHER ==
[2021-11-08 10:19] LABS: Basophils % (A) 0 %; Eosinophils % (A) 0 %; HCT 38.5 % (34.0-46.0); HGB 12.4 gm/dL (11.4-16.0); Lymphocytes # (A) 2.9 k/uL (1.0-4.8); Lymphocytes % (A) 32 %; MCH 28.6 pg (25.0-35.0); MCHC 32.1 g/dL (31.0-37.0); MCV 89.1 fL (80.0-100.0); Mean Platelet Volume 7.1; Monocytes # (A) 0.5 k/uL (0-1.0); Monocytes % (A) 5 %; Neutrophils # (A) 5.4 k/uL (1.3-7.7); Neutrophils % (A) 59 %; Platelet Count 286 k/uL (150-450); RBC 4.32 m/uL (3.80-5.40); RDW 12.7 % (11.5-15.5); WBC 9.1 k/uL (3.8-10.6)
[2021-11-08 10:27] LABS: Appearance,Urine Clear (Clear); Bilirubin,Urine Negative (Negative); Blood,Urine Trace (Negative); Color,Urine Yellow; Glucose,Urine (UA) Negative (Negative); Ketones,Urine Negative (Negative); Leukocyte Esterase,Urine Small (Negative); Mucus,Urine Rare /hpf; Nitrite,Urine Negative (Negative); PH, Urine 6.5 (5.0-8.0); Protein,Urine Negative (Negative); RBC,Urine 2 /hpf (0-5); Specific Gravity,Urine 1.011 (1.001-1.035); Squamous Epithelial Cell,Urine <1 /hpf (0-4); Urobilinogen,Urine <2.0 mg/dL (<2.0); WBC,Urine 6 /hpf (0-5)
[2021-11-08] MEDS ORDERED: SODIUM CHLORIDE 0.9% 500 ML 500 ML IV ONE (10:27)
--- NOTE | 2021-11-08 10:32 | ED ---
General Adult HPI - General Chief complaint: Weakness Stated complaint: Weakness Time Seen by Provider: 11/08/21 09:41 Source: patient, EMS, RN notes reviewed, old records reviewed Mode of arrival: EMS - History of Present Illness Initial comments: 65-year-old female with increased weakness, dizzy spell. Patient was discharged from the hospital yesterday. She has had recurrent episodes where she feels dizzy and is unable to stand. She denies fall or trauma. She is recently prescribed home oxygen. She denies fever. She denies vomiting but states she has not been eating and drinking well. No alcohol or illicit drugs. No abdominal pain. No chest pain. - Related Data Home Medications Medication Instructions Recorded Confirmed Cyclobenzaprine [Flexeril] 10 mg PO HS@2200 07/12/15 11/04/21 HYDROcodone/APAP 7.5-325MG [[place] 1 tab PO BID@1000,1400 07/12/15 11/04/21 7.5-325] Hydrochlorothiazide 12.5 mg PO DAILY@1000 07/12/15 11/04/21 [hydroCHLOROthiazide] Losartan Potassium 50 mg PO DAILY@1000 07/12/15 11/04/21 Omeprazole [PriLOSEC] 20 mg PO DAILY@1000 07/12/15 11/04/21 Rosuvastatin [Crestor] 10 mg PO HS@2200 06/04/20 11/04/21 levETIRAcetam [Keppra] 1,500 mg PO BID@1000,0 06/04/20 11/04/21 Albuterol Sulfate [Ventolin HFA] 2 puff INHALATION RT-BID@1000,219911/04/21 11/04/21 FLUoxetine HCL [PROzac] 20 mg PO DAILY@1000 11/04/21 11/04/21 Gabapentin [Neurontin] 100 mg PO TID@1000,1400,219911/04/21 11/04/21 Tiotropium 18 Mcg/Puff [Spiriva] 1 puff INHALATION RT-DAILY@99911/04/21 11/04/21 lamoTRIgine [lamoTRIgine ODT] 50 mg PO BID@1000,219911/04/21 11/04/21 lamoTRIgine [lamoTRIgine ODT] 200 mg PO BID@1000,2200 11/04/21 11/04/21 Previous Rx's Medication Instructions Recorded Albuterol Inhaler [Ventolin Hfa 1 puff INHALATION RT-QID PRN #8 gm 11/07/21 Inhaler] Ipratropium-Albuterol Nebulize 3 ml INHALATION QID PRN #90 ml 11/07/21 [Duoneb 0.5 mg-3 mg/3 ml Soln] predniSONE 10 mg PO DIRECTED #40 tab 11/07/21 Allergies Allergy/AdvReac Type Severity Reaction Status Date / Time codeine Allergy Unknown Verified 11/04/21 17:21 topiramate [From Topamax] Allergy Unknown Verified 11/04/21 17:21 Review of Systems ROS Statement: Those systems with pertinent positive or pertinent negative responses have been documented in the HPI. ROS Other: All systems not noted in ROS Statement are negative. Past Medical History Past Medical History: CVA/TIA, GERD/Reflux, Hyperlipidemia, Hypertension, Sei zure Disorder Additional Past Medical History / Comment(s): 07/12/15 Pt woke this AM and accidentally took extra dose of her xanax. She normally takes 0.5mg xanax but by accident, took 2 tablets. After taking xanax, she couldn't stand up-had weakness in both legs. Pt has some weakness/clumsiness in L arm and L leg from old CVA. Family also noticed slurred speech this AM. Pt is being admitted with clinical impression of TIA and acute maxoid sinusitis. 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 History of Any Multi-Drug Resistant Organisms: None Reported Past Surgical History: Hysterectomy, Tonsillectomy, Tubal Ligation Additional Past Surgical History / Comment(s): Aldo aneurysm clipping, sinus surgery, R carpal and R antecubital tunnel releases, 2 back injections for pain with last one done 03/14/15, hemorrhoidectomy, colonoscopy 2014 which was normal. Past Anesthesia/Blood Transfusion Reactions: No Reported Reaction Additional Past Anesthesia/Blood Transfusion Reaction / Comment(s): Pt states she has never received blood. Past Psychological History: Anxiety, Depression Smoking Status: Current every day smoker Past Alcohol Use History: None Reported Past Drug Use History: Marijuana - Past Family History Father Family Medical History: Cancer, COPD, Pneumonia Additional Family Medical History / Comment(s): Father had colon and lung cancer. He was a smoker. He of pneumonia at age 72 yrs. Mother Family Medical History: Vascular Disorder Additional Family Medical History / Comment(s): Mother has caratid artery disease- she is living and is 87yrs old. General Exam General appearance: alert, in no apparent distress, appears intoxicated Head exam: Present: atraumatic, normocephalic Eye exam: Present: normal appearance, PERRL ENT exam: Present: mucous membranes dry Neck exam: Present: normal inspection. Absent: tenderness, meningismus Respiratory exam: Present: wheezes, decreased breath sounds. Absent: respiratory distress Cardiovascular Exam: Present: regular rate, normal rhythm GI/Abdominal exam: Present: soft. Absent: distended, tenderness, guarding Extremities exam: Present: normal inspection, normal capillary refill. Absent: pedal edema Neurological exam: Present: alert. Absent: motor sensory deficit Skin exam: Present: warm, dry, intact Course Vital Signs 11/08/21 09:40 Temperature 98.3 F Pulse Rate 78 Respiratory 20 Rate Blood Pressure 170/100 O2 Sat by Pulse 96 Oximetry EKG Findings - EKG Comments: EKG Findings:: Sinus rhythm with rate of 76, MN interval 158, QRS duration 107, QTC 422, no ST segment elevation. Medical Decision Making - Medical Decision Making 65-year-old female with repeat visit for generalized weakness, dizzy spell. Patient was discharged yesterday. I do have concern that this patient may not be able to be at home alone. Does not appear as though she's eating well. She is dehydrated with dry mucous membranes. She does not have any noted limb ataxia. I did discuss case with Dr. Mistry who is familiar with the patient from recent admission and will admit again for further evaluation treatment. - Lab Data Result diagrams: 11/08/21 10:09 11/08/21 10:09 Lab Results 11/08/21 11/08/21 11/08/21 Range/Units 10:07 10:09 10:09 WBC 9.1 (3.8-10.6) k/uL RBC 4.32 (3.80-5.40) m/uL Hgb 12.4 (11.4-16.0) gm/dL Hct 38.5 (34.0-46.0) % MCV 89.1 (80.0-100.0) fL MCH 28.6 (25.0-35.0) pg MCHC 32.1 (31.0-37.0) g/dL RDW 12.7 (11.5-15.5) % Plt Count 286 (150-450) k/uL MPV 7.1 Neutrophils % 59 % Lymphocytes % 32 % Monocytes % 5 % Eosinophils % 0 % Basophils % 0 % Neutrophils # 5.4 (1.3-7.7) k/uL Lymphocytes # 2.9 (1.0-4.8) k/uL Monocytes # 0.5 (0-1.0) k/uL Eosinophils # 0.0 (0-0.7) k/uL Basophils # 0.0 (0-0.2) k/uL PT 10.1 (9.0-12.0) sec INR 0.9 (<1.2) APTT 21.6 L (22.0-30.0) sec Sodium (137-145) mmol/L Potassium (3.5-5.1) mmol/L Chloride (98-107) mmol/L Carbon Dioxide (22-30) mmol/L Anion Gap mmol/L BUN (7-17) mg/dL Creatinine (0.52-1.04) mg/dL Est GFR (CKD-EPI)AfAm (>60 ml/min/1.73 sqM) Est GFR (CKD-EPI)NonAf (>60 ml/min/1.73 sqM) Glucose (74-99) mg/dL Plasma Lactic Acid [place] (0.7-2.0) mmol/L Calcium (8.4-10.2) mg/dL Magnesium (1.6-2.3) mg/dL Total Bilirubin (0.2-1.3) mg/dL AST (14-36) U/L ALT (4-34) U/L Alkaline Phosphatase (38-126) U/L Troponin I (0.000-0.034) ng/mL Total Protein (6.3-8.2) g/dL Albumin (3.5-5.0) g/dL Urine Color Yellow Urine Appearance Clear (Clear) Urine pH 6.5 (5.0-8.0) Ur Specific [place] 1.011 (1.001-1.035) Urine Protein Negative (Negative) Urine Glucose (UA) Negative (Negative) Urine Ketones Negative (Negative) Urine Blood Trace H (Negative) Urine Nitrite Negative (Negative) Urine Bilirubin Negative (Negative) Urine Urobilinogen <2.0 (<2.0) mg/dL Ur Leukocyte Esterase Small H (Negative) Urine RBC 2 (0-5) /hpf Urine WBC 6 H (0-5) /hpf Ur Squamous Epith Cells <1 (0-4) /hpf Urine Mucus Rare H (None) /hpf 11/08/21 11/08/21 11/08/21 Range/Units 10:09 10:09 10:09 WBC (3.8-10.6) k/uL RBC (3.80-5.40) m/uL Hgb (11.4-16.0) gm/dL Hct (34.0-46.0) % MCV (80.0-100.0) fL MCH (25.0-35.0) pg MCHC (31.0-37.0) g/dL RDW (11.5-15.5) % Plt Count (150-450) k/uL MPV Neutrophils % % Lymphocytes % % Monocytes % % Eosinophils % % Basophils % % Neutrophils # (1.3-7.7) k/uL Lymphocytes # (1.0-4.8) k/uL Monocytes # (0-1.0) k/uL Eosinophils # (0-0.7) k/uL Basophils # (0-0.2) k/uL PT (9.0-12.0) sec INR (<1.2) APTT (22.0-30.0) sec Sodium 140 (137-145) mmol/L Potassium 3.2 L (3.5-5.1) mmol/L Chloride 103 (98-107) mmol/L Carbon Dioxide 32 H (22-30) mmol/L Anion Gap 5 mmol/L BUN 18 H (7-17) mg/dL Creatinine 0.47 L (0.52-1.04) mg/dL Est GFR (CKD-EPI)AfAm >90 (>60 ml/min/1.73 sqM) Est GFR (CKD-EPI)NonAf >90 (>60 ml/min/1.73 sqM) Glucose 106 H (74-99) mg/dL Plasma Lactic Acid [place] 2.1 H* (0.7-2.0) mmol/L Calcium 8.5 (8.4-10.2) mg/dL Magnesium 1.7 (1.6-2.3) mg/dL Total Bilirubin 0.6 (0.2-1.3) mg/dL AST 109 H (14-36) U/L ALT 125 H (4-34) U/L Alkaline Phosphatase 168 H (38-126) U/L Troponin I <0.012 (0.000-0.034) ng/mL Total Protein 5.4 L (6.3-8.2) g/dL Albumin 3.3 L (3.5-5.0) g/dL Urine Color Urine Appearance (Clear) Urine pH (5.0-8.0) Ur Specific [place] (1.001-1.035) Urine Protein (Negative) Urine Glucose (UA) (Negative) Urine Ketones (Negative) Urine Blood (Negative) Urine Nitrite (Negative) Urine Bilirubin (Negative) Urine Urobilinogen (<2.0) mg/dL Ur Leukocyte Esterase (Negative) Urine RBC (0-5) /hpf Urine WBC (0-5) /hpf Ur Squamous Epith Cells (0-4) /hpf Urine Mucus (None) /hpf Disposition Clinical Impression: Hypokalemia, Dehydration Disposition: ADMITTED IP TO THIS HOSP Condition: Stable Is patient prescribed a controlled substance at d/c from ED?: No Referrals: Alejandro Barragan MD [Primary Care Provider] - 1-2 days Time of Disposition: 12:00
[2021-11-08 10:38] LABS: INR 0.9 (<1.2); Prothrombin Time 10.1 sec (9.0-12.0)
[2021-11-08 10:39] LABS: ALT 125 U/L (4-34); AST 109 U/L (14-36); African American GFR (CKD) >90 (>60 ml/min/1.73 sqM); Albumin 3.3 g/dL (3.5-5.0); Alkaline Phosphatase 168 U/L (38-126); Anion Gap 5 mmol/L; Blood Urea Nitrogen 18 mg/dL (7-17); Calcium 8.5 mg/dL (8.4-10.2); Carbon Dioxide 32 mmol/L (22-30); Chloride 103 mmol/L (98-107); Glucose 106 mg/dL (74-99); Magnesium 1.7 mg/dL (1.6-2.3); Non-African American GFR(CKD) >90 (>60 ml/min/1.73 sqM); Potassium 3.2 mmol/L (3.5-5.1); Sodium 140 mmol/L (137-145); Total Bilirubin 0.6 mg/dL (0.2-1.3); Total Protein 5.4 g/dL (6.3-8.2)
[2021-11-08 10:58] LABS: Partial Thromboplastin Time 21.6 sec (22.0-30.0)
--- NOTE | 2021-11-08 11:24 | XR ---
EXAMINATION TYPE: XR chest 2V DATE OF EXAM: 11/08/2021 COMPARISON: Chest x-ray 11/06/2021 HISTORY: Weakness TECHNIQUE: Frontal and lateral views of the chest are obtained. FINDINGS: There is no focal air space opacity, pleural effusion, or pneumothorax seen. The cardiac silhouette size is enlarged. There are overlying leads. Patient is rotated. Prominent lung volume may be indicative of underlying COPD. Aorta is dense. The osseous structures are intact. IMPRESSION: Heart appears enlarged, may be at least in part technical
[2021-11-08] MEDS ORDERED: NALOXONE 0.4 MG/ML 1 ML VIAL IV PRN (11:58)
[2021-11-08] MEDS ORDERED: POTASSIUM CHLORIDE ER 20 MEQ TAB.ER PO STA (12:00)
[2021-11-08] MEDS ORDERED: SODIUM CHLORIDE 0.9% 1,000 ML IV SCH (12:00)
--- NOTE | 2021-11-08 13:41 | US ---
EXAMINATION TYPE: US liver DATE OF EXAM: 11/08/2021 COMPARISON: NONE CLINICAL HISTORY: high liver enzymes. EC patient who stated had loss of strength; fell on right body side 4 days ago EXAM MEASUREMENTS: Liver Length: 16.9 cm Gallbladder Wall: 0.2 cm CBD: 0.6 cm Right Kidney: 10.6 x 5.0 x 4.2 cm Pancreas: hyperechoic head, remainder is obscured by overlying bowel gas Liver: periportal wall brightness is noted in right and left liver lobes Gallbladder: wnl Evidence for sonographic Gonzalez's sign: no CBD: wnl Right Kidney: No hydronephrosis or masses seen IMPRESSION: 1. Mild hepatomegaly. 2. Some periportal hyper echogenicity may be present. This finding has been associated with inflammat ory bowel disease.
[2021-11-08] MEDS ORDERED: HYDROcodone/APAP 7.5-325MG 1 EACH TAB PO ONE (13:54)
[2021-11-08] MEDS ORDERED: IPRATROPIUM-ALBUTEROL 3 ML NEB INHALATION PRN (15:08)
[2021-11-08] MEDS ORDERED: ALBUTEROL NEBULIZED 2.5 MG/3 ML INHALATION PRN (15:08)
[2021-11-08] MEDS ORDERED: ACETAMINOPHEN TAB 325 MG TAB PO PRN (15:10)
--- NOTE | 2021-11-08 15:11 | P.HPIM ---
History of Present Illness This is a pleasant 65 years old female who presents with weakness, hypotension and diarrhea thought to have UTI and gastroenteritis and COPD, she was treated and improved and discharge home with home health care on oxygen and tapered steroids and no antibiotics upon discharge. At home she did not smoke but she was trying to get her bit when she felt weak and she had to lay on ground and called for her sister to come and help her. Patient felt a little dizzy and describes these as episodes, it explains she had similar episode about 3 weeks ago but milder. When Mr. Coppola She was awake and alert but very upset and angry. Currently patient is fully awake and oriented. She denies any headache or dizziness currently. No blurred vision or slurred speech. She denies weakness or numbness in extremities currently. No urine or bowel incontinence, no loss of consciousness or syncope. Also she denies other physical symptoms, no chest pain or dyspnea. No coughing. No abdominal pain or nausea or vomiting. No fever. No rash. And actually on examination her breathing looks better. During her last admission she had UTI and gastric enteritis as thought this is viral infection by the previous medical team she was treated conservatively with IV fluids and symptomatic treatment. Also patient kept on nitrofurantoin for he r UTI. Patient showed interval improvement and her blood pressure improved, IV fluids stopped. Her diarrhea stopped no abdominal pain. She tolerates diet well. She has been eating 50-100% of her meals. Repeat urine analysis is negative. Patient denies any urinary symptoms. Antibiotics discontinued. No need for further treatment. Patient also found to have some COPD exacerbation. Her breathing has been stable for the last 3-4 days on prednisone 40 mg. Patient remains on 2 L/m of oxygen, her breathing improved and she denies exertional dyspnea of the day of discharge. No coughing. No chest pain. She qualify for home oxygen, albuterol inhaler and nebulizers with the machine is a provided for her, therapeutic case manager on the case. Patient was counseled extensively to quit smoking and she agrees, she told me in more than one occasion "this is a wake-up call for me". Also patient instructed to follow up with maintenance machinist as an outpatient and she agrees with the appointments made for her with Dr. Harris on 12/03 and states she will follow up Patient will be discharged on tapering steroids as well. She is hemodynamically stable and afebrile. She is saturating 98% on 4 L oxygen CBC and BMP are unremarkable except for mild hypokalemia which is been replaced. Lactic acid 2.1, liver enzymes only slightly elevated 109 and 125 4 AST and ALT respectively. Troponin is negative. Urine analysis is negative. Chest x-ray showing COPD, no acute process. On today's chest x-ray her heart looks large and relentless inflated which is explained by improvement of her breathing with oral steroids. I think we can start tapering her steroids from tomorrow and 30 mg daily of prednisone Liver enzymes mildly elevated however liver ultrasound showing no evidence of cholecystitis, some other nonspecific changes, please refer to the report. Hepatitis panel ordered and is pendingness with possible episodes of weakness. Most likely deconditioning. Patient would benefit from rehab Review of Systems CONSTITUTIONAL: No fever, no malaise, no fatigue. HEENT: No recent visual problems or hearing problems. Denied any sore throat. CARDIOVASCULAR: No orthopnea, PND, no palpitations, no syncope. PULMONARY: No shortness of breath, no cough, no hemoptysis. GASTROINTESTINAL: No diarrhea, no nausea, no vomiting, no abdominal pain. Normoactive bowel sounds. NEUROLOGICAL: No headaches, no weakness, no numbness. HEMATOLOGICAL: Denies any bleeding or petechiae. GENITOURINARY: Denies any burning micturition, frequency, or urgency. MUSCULOSKELETAL/RHEUMATOLOGICAL: Denies any joint pain, swelling, or any muscle pain. ENDOCRINE: Denies any polyuria or polydipsia. Past Medical History Past Medical History: CVA/TIA, GERD/Reflux, Hyperlipidemia, Hypertension, Seizure Disorder Additional Past Medical History / Comment(s): 07/12/15 Pt woke this AM and accidentally took extra dose of her xanax. She normally takes 0.5mg xanax but by accident, took 2 tablets. After taking xanax, she couldn't stand up-had weakness in both legs. Pt has some weakness/clumsiness in L arm and L leg from old CVA. Family also noticed slurred speech this AM. Pt is being admitted with clinical impression of TIA and acute maxoid sinusitis. 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 History of Any Multi-Drug Resistant Organisms: None Reported Past Surgical History: Hysterectomy, Tonsillectomy, Tubal Ligation Additional Past Surgical History / Comment(s): Aldo aneurysm clipping, sinus surgery, R carpal and R antecubital tunnel releases, 2 back injections for pain with last one done 03/14/15, hemorrhoidectomy, colonoscopy 2014 which was normal. Past Anesthesia/Blood Transfusion Reactions: No Reported Reaction Additional Past Anesthesia/Blood Transfusion Reaction / Comment(s): Pt states she has never received blood. Past Psychological History: Anxiety, Depression Smoking Status: Current every day smoker Past Alcohol Use History: None Reported Past Drug Use History: Marijuana - Past Family History Father Family Medical History: Cancer, COPD, Pneumonia Additional Family Medical History / Comment(s): Father had colon and lung cancer. He was a smoker. He of pneumonia at age 72 yrs. Mother Family Medical History: Vascular Disorder Additional Family Medical History / Comment(s): Mother has caratid artery disease- she is living and is 87yrs old. Medications and Allergies Home Medications Medication Instructions Recorded Confirmed Type Cyclobenzaprine [Flexeril] 10 mg PO HS@2200 07/12/15 11/08/21 History HYDROcodone/APAP 7.5-325MG [[place] 1 tab PO BID@1000,1400 07/12/15 11/08/21 History 7.5-325] Hydrochlorothiazide 12.5 mg PO DAILY@1000 07/12/15 11/08/21 History [hydroCHLOROthiazide] Losartan Potassium 50 mg PO DAILY@1000 07/12/15 11/08/21 History Omeprazole [PriLOSEC] 20 mg PO DAILY@1000 07/12/15 11/08/21 History Rosuvastatin [Crestor] 10 mg PO HS@2200 06/04/20 11/08/21 History levETIRAcetam [Keppra] 1,500 mg PO BID@1000,2200 06/04/20 11/08/21 History Albuterol Sulfate [Ventolin HFA] 2 puff INHALATION RT-BID@1000,0 11/04/21 11/08/21 History FLUoxetine HCL [PROzac] 20 mg PO DAILY@1000 11/04/21 11/08/21 History Gabapentin [Neurontin] 100 mg PO TID@1000,1400,0 11/04/21 11/08/21 History Tiotropium 18 Mcg/Puff [Spiriva] 1 cap INHALATION RT-DAILY@1000 11/04/21 11/08/21 History lamoTRIgine [lamoTRIgine ODT] 50 mg PO BID@1000,0 11/04/21 11/08/21 History lamoTRIgine [lamoTRIgine ODT] 200 mg PO BID@1000,219911/04/21 11/08/21 History Albuterol Inhaler [Ventolin Hfa 1 puff INHALATION RT-QID PRN #8 gm 11/07/21 11/08/21 Rx Inhaler] Ipratropium-Albuterol Nebulize 3 ml INHALATION RT-QID PRN 11/08/21 11/08/21 History [Duoneb 0.5 mg-3 mg/3 ml Soln] predniSONE See Taper PO DIRECTED 11/08/21 11/08/21 History Allergies Allergy/AdvReac Type Severity Reaction Status Date / Time codeine Allergy Itching Verified 11/08/21 13:28 topiramate [From Topamax] Allergy Unknown Verified 11/08/21 13:28 Physical Exam Vitals: Vital Signs Temp Pulse Resp BP Pulse Ox 11/08/21 14:15 82 22 137/70 98 11/08/21 09:40 98.3 F 78 20 170/100 96 Intake and Output 11/07/21 11/08/21 11/08/21 22:59 06:59 14:59 Other: Weight 56.699 kg -GENERAL: The patient is alert and oriented x3, not in any acute distress. Generally weak HEENT: Pupils are round and equally reacting to light. EOMI. No scleral icterus. No conjunctival pallor. Normocephalic, atraumatic. No pharyngeal erythema. No thyromegaly. CARDIOVASCULAR: S1 and S2 present. No murmurs, rubs, or gallops. PULMONARY: Chest is clear to auscultation, no wheezing or crackles. ABDOMEN: Soft, nontender, nondistended, normoactive bowel sounds. No palpable organomegaly. MUSCULOSKELETAL: No joint swelling or deformity. EXTREMITIES: No cyanosis, clubbing, or pedal edema. NEUROLOGICAL: Gross neurological examination did not reveal any focal deficits. Cranial nerves are grossly intact. Strength is 5/5 in both upper and lower extremities. Sensation is intact. Meningeal signs are absent SKIN: No rashes. No petechiae Results CBC & Chem 7: 11/08/21 10:09 11/08/21 10:09 Labs: Abnormal Lab Results - Last 24 Hours (Table) 11/08/21 11/08/21 11/08/21 Range/Units 10:07 10:09 10:09 APTT 21.6 L (22.0-30.0) sec Potassium 3.2 L (3.5-5.1) mmol/L Carbon Dioxide 32 H (22-30) mmol/L BUN 18 H (7-17) mg/dL Creatinine 0.47 L (0.52-1.04) mg/dL Glucose 106 H (74-99) mg/dL Plasma Lactic Acid Navneet (0.7-2.0) mmol/L AST 109 H (14-36) U/L ALT 125 H (4-34) U/L Alkaline Phosphatase 168 H (38-126) U/L Total Protein 5.4 L (6.3-8.2) g/dL Albumin 3.3 L (3.5-5.0) g/dL Urine Blood Trace H (Negative) Ur Leukocyte Esterase Small H (Negative) Urine WBC 6 H (0-5) /hpf Urine Mucus Rare H (None) /hpf 11/08/21 Range/Units 10:09 APTT (22.0-30.0) sec Potassium (3.5-5.1) mmol/L Carbon Dioxide (22-30) mmol/L BUN (7-17) mg/dL Creatinine (0.52-1.04) mg/dL Glucose (74-99) mg/dL Plasma Lactic Acid Navneet 2.1 H* (0.7-2.0) mmol/L AST (14-36) U/L ALT (4-34) U/L Alkaline Phosphatase (38-126) U/L Total Protein (6.3-8.2) g/dL Albumin (3.5-5.0) g/dL Urine Blood (Negative) Ur Leukocyte Esterase (Negative) Urine WBC (0-5) /hpf Urine Mucus (None) /hpf Assessment and Plan Assessment: -Generalized weakness with episodes of weakness, thought secondary to deconditioning. Corticated by her hypokalemia present on admission -Mildly elevated liver enzymes, liver ultrasound is negative. Follow-up hepatitis panel and LFTs -Acute COPD exacerbation in a current smoker: Improved and patient is on tapered steroids -Acute gastroenteritis. Possibly viral. Improved -Acute urinary tract infection. Resolved no need for antibiotics upon discharge -Acute hypoxic respiratory failure, patient qualify for home oxygen -Acute kidney injury, likely prerenal from dehydration: Resolved -Chronic nicotine dependence, cigarette smoker -Hypotension from volume loss. Improved -History of GERD -Essential hypertension, -Primary osteoarthritis including 20 to disc L3-L4 -Hyperlipidemia -History of Depression and anxiety, not an active issue -History of Seizure disorder -Chronic vertigo, for 1 year as per patient Plan: this is a pleasant 65 years old female who presents with weakness and possible mild dizziness. I think her symptoms are due to deconditioning. However because of her history of vertigo and some reports of mild dizziness, also her history of seizure on medication, we'll ask for neurological evaluation. We'll ask for physical therapy evaluation and social sciences lecturer consult Hold [place] and continue with Tylenol when necessary Patient can resume her tapered steroids and downgraded from tomorrow and to 30 m g daily, patient should go down and the dose by 10 mg less a very 4 days total discontinue prednisone. Patient has follow-up appointment with Dr. Harris Labs and medication were reviewed.. Continue same treatment. Continue with symptomatic treatment. Resume home medication. Monitor lytes and vitals. DVT and GI prophylaxis. Further recommendationsas per clinical course of the patient DVT prophylaxis: Subcutaneous heparin GI Prophylaxis: Pepcid PT/OT: Pending Prognosis is guarded
[2021-11-08] MEDS ORDERED: MECLIZINE 12.5 MG TAB PO PRN (16:33)
[2021-11-08] MEDS ORDERED: ONDANSETRON 4 MG/2 ML VIAL IVP PRN (16:34)
[2021-11-08] MEDS ORDERED: LORazepam 2 MG/ML INJ IV PRN (17:22)
--- NOTE | 2021-11-08 17:23 | P.CNNES ---
History of Present Illness Consult date: 11/08/21 Requesting physician: Brian E Sheet Reason for Consult: episode of dizziness and weakness History of Present Illness: This is a 65-year-old woman with history of seizure, brain aneurysm s/p clip in 1988, stroke, hypertension, hyperlipidemia , COPD, depression, chronic vertigo, tobacco use who presented to the emergency department because of dizziness and generalized weakness. She was recently discharged from our facility on 11/07/2021 for acute gastroenteritis for possible viral and possible acute urinary tract infection which resolved as well as acute COPD exacerbation. Patient is a poor historian and was tangential on providing history. She was also tangential to the nurse as well. She denies of any dizziness but stated she is having episode of generalized weakness that can last 1-2 hours and has difficulty moving any of extremities associated with this. She denies any loss of consciousness, urinary or bowel incontinence or tongue bite. She denies of any aura prior to this presentation. She stated she has a diagnosis of seizures but could not tell me if she had EEG in the past. She said she was following-up with Dr. Khan for neurological care but currently following-up with Dr. Medina's team and was suppose to get EEG down the line and was recommended EMG of uppers. She smokes 1PPD for years. She resides on her own. Some of the patient home medications are on Keppra 1500 mg 1 tablet twice a day, Lamictal 250 mg 1 tablet twice a day. Patient is also on Crestor 10 mg daily at bedtime. Patient is also on Prednisone Of note patient stated that in 1988 she had a brain aneurysm clip. And had a generalized tonic-clonic seizure in 1988. Some other workup in the hospital consisted of: Initial vitals his blood pressure 170/100, heart rate of 78, temperature of 98.3 Fahrenheit oral, respiratory of 20 and pulse ox of 96% room air. CBC with differential is unremarkable Potassium 3.2, creatinine is 0.47 but BUN is 18, pleasant like to ascertain is 2.1, AST of 109, ALT 125. Urinalysis seems suspicious of urinary tract infection (but it seems she had recent UTI on recent hospital stay and was discharged yesterday) Past Medical History Past Medical History: CVA/TIA, GERD/Reflux, Hyperlipidemia, Hypertension, Seizure Disorder Additional Past Medical History / Comment(s): 07/12/15 Pt woke this AM and accidentally took extra dose of her xanax. She normally takes 0.5mg xanax but by accident, took 2 tablets. After taking xanax, she couldn't stand up-had weakness in both legs. Pt has some weakness/clumsiness in L arm and L leg from old CVA. Family also noticed slurred speech this AM. Pt is being admitted with clinical impression of TIA and acute maxoid sinusitis. 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 History of Any Multi-Drug Resistant Organisms: None Reported Past Surgical History: Hysterectomy, Tonsillectomy, Tubal Ligation Additional Past Surgical History / Comment(s): Aldo aneurysm clipping, sinus surgery, R carpal and R antecubital tunnel releases, 2 back injections for pain with last one done 03/14/15, hemorrhoidectomy, colonoscopy 2014 which was normal. Past Anesthesia/Blood Transfusion Reactions: No Reported Reaction Additional Past Anesthesia/Blood Transfusion Reaction / Comment(s): Pt states she has never received blood. Past Psychological History: Anxiety, Depression Smoking Status: Current every day smoker Past Alcohol Use History: None Reported Past Drug Use History: Marijuana - Past Family History Father Family Medical History: Cancer, COPD, Pneumonia Additional Family Medical History / Comment(s): Father had colon and lung cancer. He was a smoker. He of pneumonia at age 72 yrs. Mother Family Medical History: Vascular Disorder Additional Family Medical History / Comment(s): Mother has caratid artery disease- she is living and is 87yrs old. Medications and Allergies Home Medications Medication Instructions Recorded Confirmed Type Cyclobenzaprine [Flexeril] 10 mg PO HS@2200 07/12/15 11/08/21 History HYDROcodone/APAP 7.5-325MG [[place] 1 tab PO BID@1000,1400 07/12/15 11/08/21 History 7.5-325] Hydrochlorothiazide 12.5 mg PO DAILY@1000 07/12/15 11/08/21 History [hydroCHLOROthiazide] Losartan Potassium 50 mg PO DAILY@1000 07/12/15 11/08/21 History Omeprazole [PriLOSEC] 20 mg PO DAILY@1000 07/12/15 11/08/21 History Rosuvastatin [Crestor] 10 mg PO HS@2200 06/04/20 11/08/21 History levETIRAcetam [Keppra] 1,500 mg PO BID@1000,0 06/04/20 11/08/21 History Albuterol Sulfate [Ventolin HFA] 2 puff INHALATION RT-BID@1000,0 11/04/21 11/08/21 History FLUoxetine HCL [PROzac] 20 mg PO DAILY@1000 11/04/21 11/08/21 History Gabapentin [Neurontin] 100 mg PO TID@1000,1400,0 11/04/21 11/08/21 History Tiotropium 18 Mcg/Puff [Spiriva] 1 cap INHALATION RT-DAILY@1000 11/04/21 11/08/21 History lamoTRIgine [lamoTRIgine ODT] 50 mg PO BID@1000,0 11/04/21 11/08/21 History lamoTRIgine [lamoTRIgine ODT] 200 mg PO BID@1000,219911/04/21 11/08/21 History Albuterol Inhaler [Ventolin Hfa 1 puff INHALATION RT-QID PRN #8 gm 11/07/21 11/08/21 Rx Inhaler] Ipratropium-Albuterol Nebulize 3 ml INHALATION RT-QID PRN 11/08/21 11/08/21 Hist ory [Duoneb 0.5 mg-3 mg/3 ml Soln] predniSONE See Taper PO DIRECTED 11/08/21 11/08/21 History Allergies Allergy/AdvReac Type Severity Reaction Status Date / Time codeine Allergy Itching Verified 11/08/21 13:28 topiramate [From Topamax] Allergy Unknown Verified 11/08/21 13:28 Physical Examination - Vital Signs Vital Signs: Vital Signs Temp Pulse Resp BP Pulse Ox 11/08/21 15:50 82 16 11/08/21 15:43 84 16 11/08/21 14:15 82 22 137/70 98 04/22/22 09:40 98.3 F 78 20 170/100 96 Intake and Output 11/08/21 11/08/21 11/08/21 06:59 14:59 22:59 Other: Weight 56.699 kg GENERAL: The patient is lying in bed and is not in acute distress. CHEST: The heart rate is regular rate rhythm. No murmurs to auscultation. No carotid bruit bilaterally. LUNG: Clear to auscultation bilaterally no wheezing noted throughout. Not labored breathing. ABDOMEN/GI: Bowel sounds present in all 4 quadrants. No tenderness to palpation throughout. PSYCH: Tangential. NEUROLOGICAL: Higher mental function: The patient is awake, alert, oriented to self, place and time. Patient is following simple commands. No aphasia and no neglect. Cranial nerves: The pupils are round, equal and reactive to light. Visual kendrick are full to confrontation throughout. Extraocular movement is intact no nystagmus is noted. Facial sensation is normal to touch throughout. The facial strength is normal throughout. Hearing is decreased mildly to hand rub. Tongue is midline and moved [id number] without any difficulty. No dysarthria is noted. Shoulder shrug is normal bilaterally. Motor: Gait is deferred since patient felt light headed upon sitting up. The strength is there is some weakness on left side (old). Moving bilateral upper extremities above gravity. Normal bulk. Cerebellum: Normal finger to nose bilaterally. Sensation: Sensation is normal to touch throughout. Reflexes (right/left): 2+ throughout. Plantars are downgoing bilaterally. Results - Laboratory Findings CBC and BMP: 11/08/21 10:09 11/08/21 10:09 Abnormal Lab Findings: Abnormal Labs 11/08/21 11/08/21 11/08/21 10:07 10:09 10:09 APTT 21.6 L Potassium 3.2 L Carbon Dioxide 32 H BUN 18 H Creatinine 0.47 L Glucose 106 H Plasma Lactic Acid Navneet AST 109 H ALT 125 H Alkaline Phosphatase 168 H Total Protein 5.4 L Albumin 3.3 L Urine Blood Trace H Ur Leukocyte Esterase Small H Urine WBC 6 H Urine Mucus Rare H 11/08/21 10:09 APTT Potassium Carbon Dioxide BUN Creatinine Glucose Plasma Lactic Acid Navneet 2.1 H* AST ALT Alkaline Phosphatase Total Protein Albumin Urine Blood Ur Leukocyte Esterase Urine WBC Urine Mucus Assessment and Plan Assessment: Generalized weakness and feels could not move any extremities lasting 1-2 hours. Rule out seizure especially with history of seizures. Acute on chronic vertigo--she denies of feeling dizzy Recent history of acute gastroenteritis possible viral Recent history of acute unit tract infection History of seizure History of brain aneurysm s/p clip in 1988 Recent COPD exacerbation and patient is a smoker Essential hypertension Hyperlipidemia Plan: I ordered CT head. Cannot obtain MRI because of brain clip Ordered routine EEG which will be done this coming up Thursday since there is no EEG techs over the weekend. Every 4 hours neuro checks Started the patient on Antivert 12.5mg 1 tab tid PRN, Zofran PRN. PT and OT are consulted She is currently on Lamictal 250 mg twice a day and Keppra 1500 mg twice a day and is resumed. Will obtain levels. Ordered orthostatic vitals. Placed on seizure precaution and pad. Placed on ativan 1mg Q4 hr PRN. We'll defer the rest of the medical management to the primary team Upon discharge the patient to continue to follow-up with her neurologist (Dr. Medina's team). The plan is discussed with the patient's nurse. Thank you for the consultation. Brendan Harris M.D. Neuro-hospitalist Time with Patient: Greater than 30
--- NOTE | 2021-11-08 17:48 | CT ---
EXAMINATION TYPE: CT brain wo con CT DLP: 1019.4 mGycm, Automated exposure control for dose reduction was used. DATE OF EXAM: 11/08/2021 5:31 PM COMPARISON: Prior CT Brain from 01/30/2021. CLINICAL INDICATION:Female, 65 years old with history of dizziness, Dizziness, patient states Seizure TECHNIQUE: Brain: Multiple axial CT images of the brain were obtained without IV contrast. FINDINGS: Brain: Extra-axial spaces: No abnormal extra-axial fluid collections. Ventricular system: Within normal limits Cerebral parenchyma: Encephalomalacia in right frontal, parietal, temporal, and occipital. No acute i ntraparenchymal hemorrhage or mass effect. The remainder of the sanchez-white junctions are well differ entiated. Cerebellum: Unremarkable. Mass effect: No evidence of midline shift. Intracranial vasculature: Surgical clip is unchanged from prior. Mild atherosclerotic disease of the intracranial vasculature. Soft tissues: Normal. Calvarium/osseous structures: No depressed skull fracture. Craniotomy changes. Paranasal sinuses and mastoid air cells: Mild scattered paranasal sinus disease. Visualized orbits: The lenses are surgically removed from the globes. IMPRESSION: 1. Age related atrophic and chronic small vessel ischemic change without acute intracranial process seen at this time. 2. Unchanged large area of encephalomalacia right frontal, parietal, temporal and occipital lobes.
[2021-11-08 19:03] LABS: Hepatitis A Antibody IgM Nonreactive (Nonreactive); Hepatitis C IgG Antibody Nonreactive (Nonreactive)
[2021-11-08 19:04] LABS: Hepatitis B Core IgM Nonreactive (Nonreactive); Hepatitis B Surface Antigen Nonreactive (Nonreactive)
[2021-11-08] MEDS: ALBUTEROL NEBULIZED 2.5 MG/3 ML INHALATION SCH (20:24)
[2021-11-08] MEDS: HEPARIN SODIUM,PORCINE/PF 5,000 UNIT/0.5 ML SYRINGE SQ SCH (21:42)
[2021-11-08] MEDS: FAMOTIDINE 20 MG/2 ML VIAL IV SCH (21:42)
[2021-11-08] MEDS: INSULIN ASPART (NovoLOG) 100 UNIT/ML VIAL SQ SCH (22:51)
[2021-11-08 22:52] LABS: Glucose,Whole Blood 129 mg/dL (75-99)
[2021-11-08] MEDS: CYCLOBENZAPRINE 10 MG TAB PO SCH (23:15)
[2021-11-08] MEDS: lamoTRIgine 100 MG TAB PO SCH (23:15)
[2021-11-08] MEDS: lamoTRIgine 25 MG TAB PO SCH (23:15)
[2021-11-08] MEDS: GABAPENTIN 100 MG CAP PO SCH (23:15)
[2021-11-09 06:45] LABS: Glucose,Whole Blood 84 mg/dL (75-99)
[2021-11-09] MEDS: INSULIN ASPART (NovoLOG) 100 UNIT/ML VIAL SQ SCH ×4 (07:10→21:27)
[2021-11-09 09:03] LABS: Basophils # (A) 0.03 X 10*3/uL (0.00-0.10); Basophils % (A) 0.5 %; Eosinophils # (A) 0 X 10*3/uL (0.04-0.35); Eosinophils % (A) 0 %; HCT 35.4 % (37.2-46.3); HGB 11.2 g/dL (12.0-15.0); Immature Grans, Automated 0.6 %; Lymphocytes # (A) 2.35 X 10*3/uL (0.90-5.00); Lymphocytes % (A) 37.2 %; MCH 28.4 pg (27.0-32.0); MCHC 31.6 g/dL (32.0-37.0); MCV 89.6 fL (80.0-97.0); Mean Platelet Volume 9.1 fL (9.5-12.2); Monocytes # (A) 0.38 X 10*3/uL (0.20-1.00); NRBC Per 100 WBC 0 /100 WBCS (0.0-0.0); Neutrophils # (A) 3.51 X 10*3/uL (1.80-7.70); Neutrophils % (A) 55.7 %; Platelet Count 268 X 10*3/uL (140-440); RBC 3.95 X 10*6/uL (4.10-5.20); RDW 12.8 % (11.5-14.5); WBC 6.31 X 10*3/uL (4.50-10.00)
[2021-11-09 09:10] LABS: BUN/Creat Ratio 23.36 Ratio (12.00-20.00); Magnesium 1.8 mg/dL (1.5-2.4)
[2021-11-09 09:11] LABS: Albumin 3.2 g/dL (3.8-4.9); Albumin/Globulin Ratio 2.27 (1.60-3.17); Anion Gap 9.5 mmol/L (10.00-18.00); Blood Urea Nitrogen 10.7 mg/dL (9.0-27.0); Calcium 8.2 mg/dL (8.7-10.3); Carbon Dioxide 28.2 mmol/L (20.0-27.5); Globulin 1.4 g/dL (1.6-3.3); Non-African American GFR(CKD) 105.3 (60.0-200.0); Potassium 3.6 mmol/L (3.5-5.5); Total Bilirubin 0.4 mg/dL (0.30-1.20); Total Protein 4.7 g/dL (6.2-8.2)
[2021-11-09] MEDS: hydroCHLOROthiazide 12.5 MG CAP PO SCH (09:23)
[2021-11-09] MEDS: GABAPENTIN 100 MG CAP PO SCH ×3 (09:23→22:41)
[2021-11-09] MEDS: LOSARTAN 50 MG TAB PO SCH (09:23)
[2021-11-09] MEDS: HEPARIN SODIUM,PORCINE/PF 5,000 UNIT/0.5 ML SYRINGE SQ SCH ×2 (09:23→22:41)
[2021-11-09] MEDS: lamoTRIgine 25 MG TAB PO SCH ×2 (09:23→22:42)
[2021-11-09] MEDS: FLUoxetine HCL 20 MG CAP PO SCH (09:23)
[2021-11-09] MEDS: predniSONE 10 MG TAB PO SCH (09:23)
[2021-11-09] MEDS: lamoTRIgine 100 MG TAB PO SCH ×2 (09:23→22:42)
[2021-11-09] MEDS: FAMOTIDINE 20 MG/2 ML VIAL IV SCH (09:24)
[2021-11-09] MEDS: ALBUTEROL NEBULIZED 2.5 MG/3 ML INHALATION SCH (10:49)
[2021-11-09 10:56] VITALS: BMI 22.8
--- NOTE | 2021-11-09 11:51 | P.PN ---
Subjective Progress Note Date: 11/09/21 I was notified by the nurse overnight that felt patient right upper extremity is weak and they had ICU nurse evaluated patient but they did not think patient has a stroke. Upon speaking the AM nurse she stated the patient does not have weakness of right upper extremity. Upon seeing the patient she stated she is having neck pain and having pain in the right arm. She feels the neck pain is radiating down arm. Objective - Vital Signs Vital signs: Vital Signs Temp 99.4 F 11/09/21 08:00 Pulse 82 11/09/21 10:57 Resp 16 11/09/21 01:36 BP 127/81 11/09/21 08:00 Pulse Ox 93 L 11/09/21 08:00 Intake & Output 11/08/21 11/09/21 11/09/21 18:59 06:59 18:59 Weight 56.699 kg 56.699 kg 56.699 kg Other: # Voids 2 - Exam GENERAL: The patient is lying in bed and is mild acute distress. PSYCH: Tangential. NEUROLOGICAL: Higher mental function: The patient is awake, alert, oriented to self, place and time. Patient is following simple commands. No aphasia and no neglect. Cranial nerves: The pupils are round, equal and reactive to light. Visual f ields: Was hard to assess but appears left quadrant hemianopsia to confrontation. Extraocular movement is intact no nystagmus is noted. Facial sensation is normal to touch throughout. The facial strength is normal throughout. Tongue is midline and moved [id number]-bude without any difficulty. No dysarthria is noted. Shoulder shrug is normal bilaterally. Motor: Gait is deferred. The strength is there is some weakness on left side (old). Having pain over the right arm and result having limitation is moving it but is able to lift with help. Moving bilateral upper extremities above gravity. Normal bulk. Cerebellum: Normal finger to nose bilaterally. Sensation: Sensation is normal to touch throughout. Reflexes (right/left): 2+ throughout. Plantars are downgoing bilaterally. SOME OF THE WORK-UP: CT head is reported as related atrophic and chronic small vessel ischemic changes without acute intracranial process seen at this time. Unchanged large area of encephalomalacia over the right frontal parietal, temporal and occipital lobs. I personally reviewed images and felt patient has encephalomalacia over the right parietal/occipital region and some over right temporal region. O therwise no acute or subacute ischemic changes. - Labs CBC & Chem 7: 11/09/21 06:48 11/09/21 06:48 Labs: Abnormal Lab Results - Last 24 Hours (Table) 11/08/21 11/09/21 11/09/21 Range/Units 22:50 06:48 06:48 RBC 3.95 L (4.10-5.20) X 10*6/uL Hgb 11.2 L (12.0-15.0) g/dL Hct 35.4 L (37.2-46.3) % MCHC 31.6 L (32.0-37.0) g/dL MPV 9.1 L (9.5-12.2) fL Eosinophils # 0 L (0.04-0.35) X 10*3/uL Carbon Dioxide 28.2 H (20.0-27.5) mmol/L Anion Gap 9.50 L (10.00-18.00) mmol/L Creatinine 0.5 L (0.6-1.5) mg/dL BUN/Creatinine Ratio 23.36 H (12.00-20.00) Ratio POC Glucose (mg/dL) 129 H (75-99) mg/dL Calcium 8.2 L (8.7-10.3) mg/dL AST 60 H (13-35) U/L ALT 108 H (8-44) U/L Alkaline Phosphatase 162 H (41-126) U/L Total Protein 4.7 L (6.2-8.2) g/dL Albumin 3.2 L (3.8-4.9) g/dL Globulin 1.4 L (1.6-3.3) g/dL Assessment and Plan Assessment: Generalized weakness and feels could not move any extremities lasting 1-2 hours with dizziness. Rule out seizure especially with history of seizures. Currently is table. Neck pain Possible right cervical radiculopathy (having neck pain and radiating down arm. Currently having pain in right arm). Acute on chronic vertigo Recent history of acute gastroenteritis possible viral Recent history of acute unit tract infection History of seizure History of brain aneurysm s/p clip in 1988 Recent COPD exacerbation and patient is a smoker Essential hypertension Hyperlipidemia Plan: Cannot obtain MRI because of brain clip Ordered routine EEG which will be done this coming up Thursday since there is no EEG techs over the weekend. If remains stable can be obtained as outpatient. Ordered CT cervical spine. Consider EMG with NCS as outpatient of right upper extremity. Every 4 hours neuro checks Started the patient on Antivert 12.5mg 1 tab tid PRN, Zofran PRN. PT and OT are consulted She is currently on Lamictal 250 mg twice a day and Keppra 1500 mg twice a day and is resumed. Pending levels. Orthostatic vitals is pending to be done. On seizure precaution and pad. On ativan 1mg Q4 hr PRN. We'll defer the rest of the medical management to the primary team Upon discharge the patient to continue to follow-up with her neurologist (Dr. Medina's team). The plan is discussed with the patient's nurse. Brendan Harris M.D. Neuro-hospitalist Time with Patient: Less than 30
--- NOTE | 2021-11-09 14:49 | CT ---
EXAMINATION TYPE: CT cervical spine wo con DATE OF EXAM: 11/09/2021 COMPARISON: 09/07/2019 HISTORY: Pain CT DLP: 295.2 mGycm Automated exposure control for dose reduction was used. Images obtained from the level of the sella turcica to the T1 vertebra without contrast. There is apparent old right temporal craniotomy defect. The cervical vertebra have normal alignment. Disc spaces are fairly normal. There is mild spurring of the endplates. No compression fracture. Post erior elements are intact. There is mild hypertrophic cervical facet arthropathy. No displacement. Th e skull base is intact. IMPRESSION: Mild spondylotic changes. Multilevel posterior disc bulging and spur formation at C4-5 and C5-6 simil ar to old exam.
[2021-11-09 17:37] LABS: Glucose,Whole Blood 174 mg/dL (75-99)
--- NOTE | 2021-11-09 19:16 | PN ---
PROGRESS NOTE DATE OF SERVICE: 11/09/2021 This 65-year-old woman who was admitted with generalized weakness and diarrhea also had dehydration. The patient also had multiple abnormalities on the CT scan of the brain that showed encephalomalacia. The patient also had cervical DJD. The patient is being closely monitored. PT/OT is evaluating the patient closely. Past medical history reviewed. REVIEW OF SYSTEMS: Fourteen-point review of systems negative except as mentioned earlier. CURRENT MEDICATIONS: Reviewed. They include Tylenol. Doses and other medications are reviewed. PHYSICAL EXAMINATION: Pulse is 82, blood pressure 166/83, respiration 16, temperature 98.2, pulse ox 96% on 2 L. HEENT: Conjunctivae normal. Oral mucosa moist. NECK: Movements are slightly painful. LEGS: No edema. No swelling. NERVOUS SYSTEM: Diffusely weak. LABS: WBC 6.6, hemoglobin 11.2. ASSESSMENT: 1. Generalized weakness, possibly secondary to dehydration. 2. Encephalomalacia. 3. Cervical degenerative joint disease. 4. Possible transient ischemic attack. 5. Chronic obstructive pulmonary disease. 6. Acute gastritis. 7. Gait dysfunction. RECOMMENDATIONS AND DISCUSSION: I recommend to continue current medications, continue with the monitoring, symptomatic treatment. PT/OT evaluation. Continue with antiplatelet agents. Closely follow with Neurology and multiple consultants. Prognosis guarded. Further recommendations to follow. MMODL / IJN: [id number] /
[2021-11-09 20:03] LABS: Glucose,Whole Blood 134 mg/dL (75-99)
[2021-11-09] MEDS: IPRATROPIUM 0.5 MG/2.5 ML NEBU INHALATION SCH (20:04)
[2021-11-09] MEDS: CYCLOBENZAPRINE 10 MG TAB PO SCH (22:41)
[2021-11-09] MEDS: ATORVASTATIN 20 MG TAB PO SCH (22:42)
[2021-11-09] MEDS: FAMOTIDINE 20 MG TAB PO SCH (22:42)
[2021-11-10] MEDS: ALBUTEROL NEBULIZED 2.5 MG/3 ML INHALATION SCH ×3 (03:03→20:27)
[2021-11-10 06:50] LABS: Glucose,Whole Blood 90 mg/dL (75-99)
[2021-11-10] MEDS: INSULIN ASPART (NovoLOG) 100 UNIT/ML VIAL SQ SCH ×4 (07:09→21:08)
[2021-11-10] MEDS: hydroCHLOROthiazide 12.5 MG CAP PO SCH (08:12)
[2021-11-10] MEDS: FLUoxetine HCL 20 MG CAP PO SCH (08:12)
[2021-11-10] MEDS: lamoTRIgine 100 MG TAB PO SCH ×2 (08:12→22:07)
[2021-11-10] MEDS: FAMOTIDINE 20 MG TAB PO SCH ×2 (08:12→22:07)
[2021-11-10] MEDS: GABAPENTIN 100 MG CAP PO SCH ×3 (08:13→22:07)
[2021-11-10] MEDS: HEPARIN SODIUM,PORCINE/PF 5,000 UNIT/0.5 ML SYRINGE SQ SCH ×2 (08:13→22:08)
[2021-11-10] MEDS: predniSONE 10 MG TAB PO SCH (08:13)
[2021-11-10] MEDS: LOSARTAN 50 MG TAB PO SCH (08:13)
[2021-11-10] MEDS: lamoTRIgine 25 MG TAB PO SCH ×2 (08:14→22:08)
[2021-11-10] MEDS: IPRATROPIUM 0.5 MG/2.5 ML NEBU INHALATION SCH ×4 (09:05→20:27)
[2021-11-10 11:34] LABS: Glucose,Whole Blood 119 mg/dL (75-99)
[2021-11-10 11:42] LABS: Basophils # (A) 0.03 X 10*3/uL (0.00-0.10); Basophils % (A) 0.3 %; Eosinophils # (A) 0 X 10*3/uL (0.04-0.35); Eosinophils % (A) 0 %; HCT 31.7 % (37.2-46.3); Immature Grans, Automated 1.3 %; Lymphocytes # (A) 3.98 X 10*3/uL (0.90-5.00); Lymphocytes % (A) 45.4 %; MCH 28.3 pg (27.0-32.0); MCHC 31.5 g/dL (32.0-37.0); MCV 89.8 fL (80.0-97.0); Mean Platelet Volume 9.7 fL (9.5-12.2); Monocytes # (A) 0.75 X 10*3/uL (0.20-1.00); Monocytes % (A) 8.6 %; NRBC Per 100 WBC 0 /100 WBCS (0.0-0.0); Neutrophils % (A) 44.4 %; Platelet Count 299 X 10*3/uL (140-440); RBC 3.53 X 10*6/uL (4.10-5.20); RDW 12.6 % (11.5-14.5); WBC 8.77 X 10*3/uL (4.50-10.00)
[2021-11-10 12:00] LABS: African American GFR (CKD) 127.6 (60.0-200.0); Anion Gap 9.4 mmol/L (10.00-18.00); BUN/Creat Ratio 31.25 Ratio (12.00-20.00); Blood Urea Nitrogen 12.5 mg/dL (9.0-27.0); Calcium 8.6 mg/dL (8.7-10.3); Carbon Dioxide 31.6 mmol/L (20.0-27.5); Non-African American GFR(CKD) 110.1 (60.0-200.0); Potassium 3.4 mmol/L (3.5-5.5)
[2021-11-10 16:35] LABS: Glucose,Whole Blood 141 mg/dL (75-99)
--- NOTE | 2021-11-10 19:43 | PN ---
PROGRESS NOTE DATE OF SERVICE: 11/10/2021 This 65-year-old woman who was admitted with generalized weakness and possible dehydration also has cervical DJD. No chest pain. No palpitations. No fever. PT/OT is evaluating the patient for possible ECF rehab. PHYSICAL EXAMINATION: Pulse 83, blood pressure 153/83, respiration 20. CHEST: Clear to auscultation. CARDIOVASCULAR: S1, S2 muffled. ABDOMEN: Soft. Nervous system: Diffusely weak. LABS: Reviewed. Potassium 3.4. ASSESSMENT: 1. Generalized weakness, possibly secondary to dehydration. 2. Encephalomalacia. 3. Cervical degenerative joint disease. 4. Possible transient ischemic attack. 5. Chronic obstructive pulmonary disease. 6. Acute gastritis. 7. Gait dysfunction. RECOMMENDATIONS AND DISCUSSION: I recommend to continue current medications, continue with the monitoring, symptomatic treatment. I would recommend PT/OT evaluation, possible ECF rehab. Guarded prognosis. Further recommendations to follow. PATI / EVELYNN: [id number] /
[2021-11-10 20:27] LABS: Glucose,Whole Blood 166 mg/dL (75-99)
[2021-11-10] MEDS: ATORVASTATIN 20 MG TAB PO SCH (22:07)
[2021-11-10] MEDS: CYCLOBENZAPRINE 10 MG TAB PO SCH (22:07)
[2021-11-11] MEDS ORDERED: FAMOTIDINE 20 MG TAB ONE (08:10)
[2021-11-11] MEDS ORDERED: lamoTRIgine 100 MG TAB ONE (08:10)
[2021-11-11] MEDS ORDERED: LOSARTAN 50 MG TAB ONE (08:10)
[2021-11-11] MEDS ORDERED: predniSONE 10 MG TAB ONE (08:10)
[2021-11-11] MEDS ORDERED: hydroCHLOROthiazide 12.5 MG CAP ONE (08:10)
[2021-11-11] MEDS ORDERED: FLUoxetine HCL 20 MG CAP ONE (08:10)
[2021-11-11] MEDS ORDERED: GABAPENTIN 100 MG CAP ONE (08:10)
[2021-11-11] MEDS ORDERED: HEPARIN SODIUM,PORCINE 5,000 UNIT/ML 1 ML VIAL ONE (08:10)
[2021-11-11] MEDS ORDERED: lamoTRIgine 25 MG TAB ONE (08:10)
[2021-11-11 08:46] LABS: Lamotrigine (Lamictal) 16.7 ug/mL (2.0-15.0)
[2021-11-11 08:48] LABS: Levetiracetam (Keppra) 40.2 ug/mL (3.0-60.0)
[2021-11-11 10:48] LABS: Glucose,Whole Blood 88 mg/dL (75-99)
[2021-11-11 11:58] LABS: Glucose,Whole Blood 123 mg/dL (75-99)
[2021-11-11] MEDS: ALBUTEROL NEBULIZED 2.5 MG/3 ML INHALATION SCH ×2 (12:11→19:16)
[2021-11-11] MEDS: IPRATROPIUM 0.5 MG/2.5 ML NEBU INHALATION SCH ×3 (12:11→19:16)
[2021-11-11] MEDS: INSULIN ASPART (NovoLOG) 100 UNIT/ML VIAL SQ SCH ×3 (12:29→22:43)
[2021-11-11] MEDS: HEPARIN SODIUM,PORCINE/PF 5,000 UNIT/0.5 ML SYRINGE SQ SCH ×2 (13:37→20:51)
[2021-11-11] MEDS: predniSONE 10 MG TAB PO SCH (13:37)
[2021-11-11] MEDS: FAMOTIDINE 20 MG TAB PO SCH ×2 (13:37→20:52)
[2021-11-11] MEDS: LOSARTAN 50 MG TAB PO SCH (13:38)
[2021-11-11] MEDS: lamoTRIgine 100 MG TAB PO SCH ×2 (13:38→20:52)
[2021-11-11] MEDS: lamoTRIgine 25 MG TAB PO SCH ×2 (13:38→20:52)
[2021-11-11] MEDS: GABAPENTIN 100 MG CAP PO SCH ×3 (13:38→20:52)
[2021-11-11] MEDS: FLUoxetine HCL 20 MG CAP PO SCH (13:38)
[2021-11-11] MEDS: hydroCHLOROthiazide 12.5 MG CAP PO SCH (13:38)
--- NOTE | 2021-11-11 14:18 | P.PN ---
Subjective Progress Note Date: 11/11/21 The patient is seen at bedside and she stated she is feeling better. Denies any right arm weakness or neck pain today. Per her nurse no seizure-like episode in hospital stay. Per nurse it seems she is not compliant with her seizure medication. Objective - Vital Signs Vital signs: Vital Signs Temp 98.2 F 11/11/21 01:19 Pulse 75 11/11/21 12:10 Resp 17 11/11/21 01:19 BP 167/88 11/11/21 01:19 Pulse Ox 97 11/11/21 08:50 Intake & Output 11/10/21 11/11/21 11/11/21 18:59 06:59 18:59 Output Total 1 Balance -1 Output: Urine 1 Other: Voiding Method Toilet Bedside Commode # Voids 7 # Bowel Movements 1 - Exam GENERAL: The patient is lying in bed and is mild acute distress. PSYCH: Tangential. NEUROLOGICAL: Higher mental function: The patient is awake, alert, oriented to self, place and time. Patient is following simple commands. No aphasia and no neglect. Cranial nerves: The pupils are round, equal and reactive to light. Visual kendrick: Was hard to assess but appears left quadrant hemianopsia to con frontation. Extraocular movement is intact no nystagmus is noted. Facial sensation is normal to touch throughout. The facial strength is normal throughout. Tongue is midline and moved asym-hz-vged without any difficulty. No dysarthria is noted. Shoulder shrug is normal bilaterally. Motor: Gait is normal. The strength is there is some weakness on left side (old). Otherwise strength is good. Normal bulk. Cerebellum: Normal finger to nose bilaterally. Sensation: Sensation is normal to touch throughout. Reflexes (right/left): 2+ throughout. Plantars are downgoing bilaterally. SOME OF THE WORK-UP: CT head is reported as related atrophic and chronic small vessel ischemic changes without acute intracranial process seen at this time. Unchanged large area of encephalomalacia over the right frontal parietal, temporal and occipital lobs. I personally reviewed images and felt patient has encephalomalacia over the right parietal/occipital region and some over right temporal region. O therwise no acute or subacute ischemic changes. CT Cervical: Reported as mild spondylotic changes. Multilevel posterior disc buldging and spurr formation at C4-C5 and C5-C6 similar to old exam. - Labs CBC & Chem 7: 11/10/21 06:49 11/10/21 06:49 Labs: Abnormal Lab Results - Last 24 Hours (Table) 11/08/21 11/10/21 11/10/21 Range/Units 18:25 16:34 20:24 POC Glucose (mg/dL) 141 H 166 H (75-99) mg/dL Lamotrigine 16.7 H (2.0-15.0) ug/mL 11/11/21 Range/Units 11:56 POC Glucose (mg/dL) 123 H (75-99) mg/dL Lamotrigine (2.0-15.0) ug/mL Assessment and Plan Assessment: Generalized weakness and feels could not move any extremities lasting 1-2 hours with dizziness. Rule out seizure especially with history of seizures. Currently is stable and had no seizure in our facility. It seems patient has is non-compliant with her seizure medication. Acute on chronic vertigo--resolved Recent history of acute gastroenteritis possible viral Recent history of acute unit tract infection History of seizure History of brain aneurysm s/p clip in 1988 Recent COPD exacerbation and patient is a smoker Essential hypertension Hyperlipidemia Plan: Cannot obtain MRI because of brain clip Preliminary EEG: Normal study. No seizure or epileptiform discharges. Consider EMG with NCS as outpatient if she continues to have pain of right upper extremity. Every 4 hours neuro checks Continue Antivert 12.5mg 1 tab tid PRN, Zofran PRN. PT and OT are consulted She is currently on Lamictal 250 mg twice a day and Keppra 1500 mg twice a day and is resumed. Pending levels. Her keppra level is 40.2. Her Lamictal level is 16.7 (normal is 2-15). I will not modify her Lamictal dose and will defer it to her neurologist as outpatient. On seizure precaution and pad. On ativan 1mg Q4 hr PRN. We'll defer the rest of the medical management to the primary team Upon discharge the patient to continue to follow-up with her neurologist (Dr. Medina's team). The plan is discussed with the patient's nurse. No further neurological work-up. She is clear from neurological perspective. Brendan Harris M.D. Neuro-hospitalist Time with Patient: Less than 30
[2021-11-11] MEDS ORDERED: POTASSIUM CHLORIDE ER 20 MEQ TAB.ER PO STA (14:35)
[2021-11-11] MEDS: POTASSIUM CHLORIDE ER 20 MEQ TAB.ER PO ONE ×2 (14:52→15:25)
--- NOTE | 2021-11-11 14:59 | EEG ---
ELECTROENCEPHALOGRAM REPORT DATE OF SERVICE: 11/11/2021 CLINICAL HISTORY: This is a 65-year-old woman with history of seizure, brain aneurysm and stroke who presented because of recurrent transient body weakness. The video EEG is obtained to evaluate for seizure epileptiform activity. Relevant medication: Keppra and Lamictal. EEG TYPE: A routine 21-channel EEG is performed with video using the 10/20 electrode placement system. DESCRIPTION: Awake state is only obtained. During awake state, the posterior-dominant rhythm consists of 8 to 8.5 hertz activity. There is no physiological stage II sleep architecture. There is no focal slowing. Interictal and ictal is none. ACTIVATION PROCEDURE: Photic stimulation and hyperventilation are not performed. CLINICAL INTERPRETATION: This is a normal routine EEG. There is no focal slowing, epileptiform discharge or seizure on the EEG. Clinical correlation is recommended. PATI / CLAUDE: [id number] / MTDD
[2021-11-11 17:09] LABS: Glucose,Whole Blood 122 mg/dL (75-99)
--- NOTE | 2021-11-11 19:27 | P.PN ---
Progress Note - Text Progress Note Date: 11/11/21 Hospital course: This is a pleasant 65 years old female who presents with weakness, hypotension a nd diarrhea thought to have UTI and gastroenteritis and COPD, she was treated and improved and discharge home with home health care on oxygen and tapered steroids and no antibiotics upon discharge. At home she did not smoke but she was trying to get her bit when she felt weak and she had to lay on ground and called for her sister to come and help her. Patient felt a little dizzy and describes these as episodes, it explains she had similar episode about 3 weeks ago but milder. When Mr. Coppola She was awake and alert but very upset and angry. Currently patient is fully awake and oriented. She denies any headache or dizziness currently. No blurred vision or slurred speech. She denies weakness or numbness in extremities currently. No urine or bowel incontinence, no loss of consciousness or syncope. Also she denies other physical symptoms, no chest pain or dyspnea. No coughing. No abdominal pain or nausea or vomiting. No fever. No rash. And actually on examination her breathing looks better. During her last admission she had UTI and gastric enteritis as thought this is viral infection by the previous medical team she was treated conservatively with IV fluids and symptomatic treatment. Also patient kept on nitrofurantoin for her UTI. Patient showed interval improvement and her blood pressure improved, IV fluids stopped. Her diarrhea stopped no abdominal pain. She tolerates diet well. She has been eating 50-100% of her meals. Repeat urine analysis is negative. Patient denies any urinary symptoms. Antibiotics discontinued. No need for further treatment. Patient also found to have some COPD exacerbation. Her breathing has been stable for the last 3-4 days on prednisone 40 mg. Patient remains on 2 L/m of oxygen, her breathing improved and she denies exertional dyspnea of the day of discharge. No coughing. No chest pain. She qualify for home oxygen, albuterol inhaler and nebulizers with the machine is a provided for her, major case detective on the case. Patient was counseled extensively to quit smoking and she agrees, she told me in more than one occasion "this is a wake-up call for me". Also patient instructed to follow up with staff assistant as an outpatient and she agrees with the appointments made for her with Dr. Harris on 12/03 and states she will follow up Patient will be discharged on tapering steroids as well. She is hemodynamically stable and afebrile. She is saturating 98% on 4 L oxygen CBC and BMP are unremarkable except for mild hypokalemia which is been replaced. Lactic acid 2.1, liver enzymes only slightly elevated 109 and 125 4 AST and ALT respectively. Troponin is negative. Urine analysis is negative. Chest x-ray showing COPD, no acute process. On today's chest x-ray her heart looks large and relentless inflated which is explained by improvement of her breathing with oral steroids. I think we can start tapering her steroids from tomorrow and 30 mg daily of prednisone Liver enzymes mildly elevated however liver ultrasound showing no evidence of cholecystitis, some other nonspecific changes, please refer to the report. Hepatitis panel ordered and is pendingness with possible episodes of weakness. Most likely deconditioning. Patient would benefit from rehab November 11: Feeling better. Does get a bit dizzy on standing up. Otherwise using a walker. Eating fair. Active Medications Acetaminophen (Acetaminophen Tab 325 Mg Tab) 325 mg PO Q6HR PRN PRN Reason: Fever and/ or Pain Albuterol Sulfate (Albuterol Nebulized 2.5 Mg/3 Ml) 2.5 mg INHALATION RT- BID@1000,2200 [facility] Last Admin: 11/11/21 12:11 Dose: Not Given Documented by: Albuterol/Ipratropium (Ipratropium-Albuterol 3 Ml Neb) 3 ml INHALATION RT-QID PRN PRN Reason: Shortness Of Breath Or Wheezing Atorvastatin Calcium (Atorvastatin 20 Mg Tab) 20 mg PO HS@2200 [facility] Last Admin: 11/10/21 22:07 Dose: 20 mg Documented by: Cyclobenzaprine HCl (Cyclobenzaprine 10 Mg Tab) 10 mg PO HS@2200 [facility] Last Admin: 11/10/21 22:07 Dose: 10 mg Documented by: Famotidine (Famotidine 20 Mg Tab) 20 mg PO BID [facility] Last Admin: 11/11/21 13:37 Dose: Not Given Documented by: Fluoxetine HCl (Fluoxetine Hcl 20 Mg Cap) 20 mg PO DAILY@1000 [facility] Last Admin: 11/11/21 13:38 Dose: Not Given Documented by: Gabapentin (Gabapentin 100 Mg Cap) 100 mg PO TID@1000,1400,2200 [facility] Last Admin: 11/11/21 14:51 Dose: 100 mg Documented by: Heparin Sodium (Porcine) (Heparin Sodium,Porcine/Pf 5,000 Unit/0.5 Ml Syringe) 5,000 unit SQ Q12HR [facility] Last Admin: 11/11/21 13:37 Dose: Not Given Documented by: Hydrochlorothiazide (Hydrochlorothiazide 12.5 Mg Cap) 12.5 mg PO DAILY@1000 [facility] Last Admin: 11/11/21 13:38 Dose: Not Given Documented by: Insulin Aspart (Insulin Aspart (Novolog) 100 Unit/Ml Vial) 0 unit SQ [facility]; Protocol Last Admin: 11/11/21 12:29 Dose: Not Given Documented by: Ipratropium [place] (Ipratropium 0.5 Mg/2.5 Ml Nebu) 1 mg INHALATION RT-QID [facility] Last Admin: 11/11/21 15:10 Dose: Not Given Documented by: Lamotrigine (Lamotrigine 25 Mg Tab) 50 mg PO BID@1000,2200 [facility] Last Admin: 11/11/21 13:38 Dose: Not Given Documented by: Lamotrigine (Lamotrigine 100 Mg Tab) 200 mg PO BID@1000,2200 [facility] Last Admin: 11/11/21 13:38 Dose: Not Given Documented by: Levetiracetam (Levetiracetam 750 Mg Tab) 1,500 mg PO BID@1000,2200 [facility] Last Admin: 11/11/21 13:38 Dose: Not Given Documented by: Lorazepam (Lorazepam 2 Mg/Ml Inj) 1 mg IV Q4HR PRN PRN Reason: Seizures Last Admin: 11/08/21 21:43 Dose: 1 mg Documented by: Losartan Potassium (Losartan 50 Mg Tab) 50 mg PO DAILY@1000 [facility] Last Admin: 11/11/21 13:38 Dose: Not Given Documented by: Meclizine HCl (Meclizine 12.5 Mg Tab) 12.5 mg PO TID PRN PRN Reason: Vertigo Naloxone HCl (Naloxone 0.4 Mg/Ml 1 Ml Vial) 0.2 mg IV Q2M PRN PRN Reason: Opioid Reversal Ondansetron HCl (Ondansetron 4 Mg/2 Ml Vial) 4 mg IVP Q6HR PRN PRN Reason: Nausea And Vomiting Prednisone (Prednisone 10 Mg Tab) 30 mg PO DAILY [facility] Last Admin: 11/11/21 13:37 Dose: Not Given Documented by: Past medical history to include: GERD, hypertension, hyperlipidemia, seizure disorder, cerebral aneurysm rupture right-sided occipital lobe stroke with some left arm and left leg weakness in 1988. Herniated disc L3-L4 anxiety depression. Social history: Lives alone. Smoking a pack a day for close to 40 years. No alcohol. Family history: colon Lung cancer Physical examination: VITAL SIGNS: 99.1, 94, 18, 1 34/72, 95% on room air GENERAL: reclining in bed, awake, comfortable EYES: Pupils equal. Conjunctiva normal. HEENT: External appearance of nose and ears normal, oral cavity grossly normal. NECK: JVD not raised; masses not palpable. HEART: First and second heart sounds are normal; no edema. LUNGS: Respiratory rate increased; decreased breath sounds , wheezing. ABDOMEN: Soft, mildly tender, liver spleen not palpable, no masses palpable. PSYCH: [Alert and oriented x3; mood and affect normal. MUSCULOSKELETAL:No Clubbing/cyanosis;muscles-grossly intact INVESTIGATIONS, reviewed in the clinical context: White count 8.7 hemoglobin 10 platelets 299 sodium 143 potassium 3.4 creatinine 0.4 EKG: Normal sinus rhythm Liver ultrasound: Mild hepatomegaly. EEG: Negative for epilepsy CT brain: Age-related atrophy and chronic small vessel ischemic changes. Unchanged large area of encephalomalacia right frontal parietal temporal and occipital lobes. Cervical spine CT: Multiple posterior disc bulging spur formation at C4 to C5/C5 to C6 Admission labs: Sodium 140 potassium 3.2 BUN 18 creatinine 0.47 lactic acid 2.1 AST 109 ALT 125 troponin I less than 0.012 Acute hepatitis screen negative Assessment and plan: -Acute dizziness. Possibly combination of dehydration and deconditioning. Check orthostatic. Neurological workup in place. EEG negative. -COPD in a current smoker Bronchodilators. -Chronic nicotine dependence, cigarette smoker Nicotine patch -GERD Prilosec 20 mg a day -Essential hypertension, currently blood pressures running low losartan 50 mg a day -Primary osteoarthritis including 20 to disc L3-L4 [place] 7.5 twice a day, Flexeril 10 mg daily at bedtime -Hyperlipidemia Crestor 10 mg daily at bedtime -Depression and anxiety Prozac 20 mg a -Seizure disorder Keppra 1500 mg by mouth twice a day Lamictal 50 mg twice a day -Chronic vertigo Continue current treatment plan. Replace potassium. Check orthostatics. Hopefully discharge tomorrow.
[2021-11-11] MEDS: CYCLOBENZAPRINE 10 MG TAB PO SCH (20:52)
[2021-11-11] MEDS: ATORVASTATIN 20 MG TAB PO SCH ×2 (20:52→21:01)
[2021-11-11] MEDS: NICOTINE 21MG/24HR PATCH TRANSDERM SCH (21:01)
[2021-11-11 22:43] LABS: Glucose,Whole Blood 129 mg/dL (75-99)
[2021-11-12 06:48] LABS: Glucose,Whole Blood 87 mg/dL (75-99)
[2021-11-12] MEDS: INSULIN ASPART (NovoLOG) 100 UNIT/ML VIAL SQ SCH ×2 (07:03→12:35)
[2021-11-12] MEDS: NICOTINE 21MG/24HR PATCH TRANSDERM SCH (07:04)
[2021-11-12 07:45] VITALS: RESP 18; TEMP 98.5
[2021-11-12] MEDS: FLUoxetine HCL 20 MG CAP PO SCH (08:15)
[2021-11-12] MEDS: predniSONE 10 MG TAB PO SCH (08:15)
[2021-11-12] MEDS: FAMOTIDINE 20 MG TAB PO SCH (08:15)
[2021-11-12] MEDS: hydroCHLOROthiazide 12.5 MG CAP PO SCH (08:16)
[2021-11-12] MEDS: lamoTRIgine 25 MG TAB PO SCH (08:16)
[2021-11-12] MEDS: lamoTRIgine 100 MG TAB PO SCH (08:16)
[2021-11-12] MEDS: LOSARTAN 50 MG TAB PO SCH (08:16)
[2021-11-12] MEDS: GABAPENTIN 100 MG CAP PO SCH (08:16)
[2021-11-12] MEDS: HEPARIN SODIUM,PORCINE/PF 5,000 UNIT/0.5 ML SYRINGE SQ SCH (08:18)
[2021-11-12 08:26] VITALS: BP 142/89
[2021-11-12] MEDS: IPRATROPIUM 0.5 MG/2.5 ML NEBU INHALATION SCH ×2 (08:34→12:17)
[2021-11-12] MEDS: ALBUTEROL NEBULIZED 2.5 MG/3 ML INHALATION SCH (08:34)
[2021-11-12 08:46] VITALS: PULSE 75
[2021-11-12 11:31] LABS: Glucose,Whole Blood 101 mg/dL (75-99)
--- NOTE | 2021-11-12 19:48 | P.DS ---
Providers Date of admission: 11/08/21 11:58 Expected date of discharge: 11/12/21 Attending physician: Jameson Hagan Consults: 11/08/21 14:52 Consult Physician Urgent Consulting Provider: Brendan Harris Consult Reason/Comments: episodes of dizziness and weakness Do you want consulting provider notified?: Yes Primary care physician: Alejandro Laurel [facility] Course: Hospital course: This is a pleasant 65 years old female who presents with weakness, hypotension and diarrhea thought to have UTI and gastroenteritis and COPD, she was treated and improved and discharge home with home health care on oxygen and tapered steroids and no antibiotics upon discharge. At home she did not smoke but she was trying to get her bit when she felt weak and she had to lay on ground and called for her sister to come and help her. Patient felt a little dizzy and describes these as episodes, it explains she had similar episode about 3 weeks ago but milder. When Mr. Coppola She was awake and alert but very upset and angry. Currently patient is fully awake and oriented. She denies any headache or dizziness currently. No blurred vision or slurred speech. She denies weakness or numbness in extremities currently. No urine or bowel incontinence, no loss of consciousness or syncope. Also she denies other physical symptoms, no chest pain or dyspnea. No coughing. No abdominal pain or nausea or vomiting. No fever. No rash. And actually on examination her breathing looks better. During her last admission she had UTI and gastric enteritis as thought this is viral infection by the previous medical team she was treated conservatively with IV fluids and symptomatic treatment. Also patient kept on nitrofurantoin for her UTI. Patient showed interval improvement and her blood pressure improved, IV fluids stopped. Her diarrhea stopped no abdominal pain. She tolerates diet well. She has been eating 50-100% of her meals. Repeat urine analysis is negative. Patient denies any urinary symptoms. Antibiotics discontinued. No need for further treatment. Patient also found to have some COPD exacerbation. Her breathing has been stable for the last 3-4 days on prednisone 40 mg. Patient remains on 2 L/m of oxygen, her breathing improved and she denies exertional dyspnea of the day of discharge. No coughing. No chest pain. She qualify for home oxygen, albuterol inhaler and nebulizers with the machine is a provided for her, human services case manager on the case. Patient was counseled extensively to quit smoking and she agrees, she told me in more than one occasion "this is a wake-up call for me". Also patient instructed to follow up with javascript engineer as an outpatient and she agrees with the appointments made for her with Dr. Harris on 12/03 and states she will follow up Patient will be discharged on tapering steroids as well. She is hemodynamically stable and afebrile. She is saturating 98% on 4 L oxygen CBC and BMP are unremarkable except for mild hypokalemia which is been replaced. Lactic acid 2.1, liver enzymes only slightly elevated 109 and 125 4 AST and ALT respectively. Troponin is negative. Urine analysis is negative. Chest x-ray showing COPD, no acute process. On today's chest x-ray her heart looks large and relentless inflated which is explained by improvement of her breathing with oral steroids. I think we can start tapering her steroids from tomorrow and 30 mg daily of prednisone Liver enzymes mildly elevated however liver ultrasound showing no evidence of cholecystitis, some other nonspecific changes, please refer to the report. Hepatitis panel ordered and is pendingness with possible episodes of weakness. Most likely deconditioning. Patient would benefit from rehab November 11: Feeling better. Does get a bit dizzy on standing up. Otherwise using a walker. Eating fair. November 12: Patient feeling greatly improved. Discussed with the patient. She would rather go home than go to rehab. 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 Patient counseled about smoking. Discussion and discharge planning more than 35 minutes Past medical history to include: GERD, hypertension, hyperlipidemia, seizure disorder, cerebral aneurysm rupture right-sided occipital lobe stroke with some left arm and left leg weakness in 1988. Herniated disc L3-L4 anxiety depression. Social history: Lives alone. Smoking a pack a day for close to 40 years. No alcohol. Family history: colon Lung cancer Physical examination: VITAL SIGNS: 98.5, 64, 18, 1:30/94, 92% room air GENERAL: Sitting on the edge of the bed, awake, comfortable EYES: Pupils equal. Conjunctiva normal. HEENT: External appearance of nose and ears normal, oral cavity grossly normal. NECK: JVD not raised; masses not palpable. HEART: First and second heart sounds are normal; no edema. LUNGS: Respiratory rate normal; decreased breath sounds ABDOMEN: Soft, mildly tender, liver spleen not palpable, no masses palpable. PSYCH: [Alert and oriented x3; mood and affect normal. MUSCULOSKELETAL:No Clubbing/cyanosis;muscles-grossly intact INVESTIGATIONS, reviewed in the clinical context: White count 8.7 hemoglobin 10 platelets 299 sodium 143 potassium 3.4 creatinine 0.4 EKG: Normal sinus rhythm Liver ultrasound: Mild hepatomegaly. EEG: Negative for epilepsy CT brain: Age-related atrophy and chronic small vessel ischemic changes. Unchanged large area of encephalomalacia right frontal parietal temporal and occipital lobes. Cervical spine CT: Multiple posterior disc bulging spur formation at C4 to C5/C5 to C6 Admission labs: Sodium 140 potassium 3.2 BUN 18 creatinine 0.47 lactic acid 2.1 AST 109 ALT 125 troponin I less than 0.012 Acute hepatitis screen negative Assessment and plan: -Acute dizziness. Possibly combination of dehydration and deconditioning. Negative orthostatic. . EEG negative. -COPD in a current smoker Bronchodilators. -Chronic nicotine dependence, cigarette smoker Nicotine patch -GERD Prilosec 20 mg a day -Essential hypertension, currently blood pressures running low losartan 50 mg a day chlorthalidone 25 mg a day -Primary osteoarthritis including 20 to disc L3-L4 [place] 7.5 twice a day, Flexeril 10 mg daily at bedtime -Hyperlipidemia Crestor 10 mg daily at bedtime -Depression and anxiety Prozac 20 mg a -Seizure disorder Keppra 1500 mg by mouth twice a day Lamictal 50 mg twice a day -Chronic vertigo Disposition: Home Plan - Discharge Summary Discharge Rx Participant: No New Discharge Prescriptions: New Chlorthalidone 25 mg PO DAILY #1 tab Nicotine 21Mg/24Hr Patch [Habitrol] 1 patch TRANSDERM DAILY #14 patch Famotidine [Pepcid] 20 mg PO BID tab predniSONE 0 mg PO DIRECTED #7 tab Acetaminophen Tab [Tylenol] 325 mg PO Q6HR PRN tab PRN Reason: Fever And/ Or Pain Meclizine [Antivert] 12.5 mg PO TID PRN tab PRN Reason: Vertigo HYDROcodone/APAP 7.5-325MG [[place] 7.5-325] 1 tab PO BID #1 tab Continue Omeprazole [PriLOSEC] 20 mg PO DAILY@1000 Cyclobenzaprine [Flexeril] 10 mg PO HS@2200 Losartan Potassium 50 mg PO DAILY@1000 levETIRAcetam [Keppra] 1,500 mg PO BID@999,2199 Rosuvastatin [Crestor] 10 mg PO HS@2199 Tiotropium 18 Mcg/Puff [Spiriva] 1 cap INHALATION RT-DAILY@1000 Albuterol Sulfate [Ventolin HFA] 2 puff INHALATION RT-BID@999,2199 Albuterol Inhaler [Ventolin Hfa Inhaler] 1 puff INHALATION RT-QID PRN #8 gm PRN Reason: Shortness Of Breath lamoTRIgine [lamoTRIgine ODT] 200 mg PO BID@999,2199 #4 tab FLUoxetine HCL [PROzac] 20 mg PO DAILY@1000 Ipratropium-Albuterol Nebulize [Duoneb 0.5 mg-3 mg/3 ml Soln] 3 ml INHALATION RT-QID PRN PRN Reason: Shortness Of Breath Or Wheezing lamoTRIgine [lamoTRIgine ODT] 50 mg PO BID@999,2199 #12 tab Gabapentin [Neurontin] 100 mg PO TID@999,1399,2199 #9 cap Discontinued HYDROcodone/APAP 7.5-325MG [[place] 7.5-325] 1 tab PO BID@999,1399 Hydrochlorothiazide [hydroCHLOROthiazide] 12.5 mg PO DAILY@1000 predniSONE See Taper PO DIRECTED Discharge Medication List Cyclobenzaprine [Flexeril] 10 mg PO HS@219907/12/15 [History] Losartan Potassium 50 mg PO DAILY@1000 07/12/15 [History] Omeprazole [PriLOSEC] 20 mg PO DAILY@99907/12/15 [History] Rosuvastatin [Crestor] 10 mg PO HS@219906/04/20 [History] levETIRAcetam [Keppra] 1,500 mg PO BID@999,219906/04/20 [History] Albuterol Sulfate [Ventolin HFA] 2 puff INHALATION RT-BID@999,219911/04/21 [History] FLUoxetine HCL [PROzac] 20 mg PO DAILY@99911/04/21 [History] Tiotropium 18 Mcg/Puff [Spiriva] 1 cap INHALATION RT-DAILY@99911/04/21 [History] Albuterol Inhaler [Ventolin Hfa Inhaler] 1 puff INHALATION RT-QID PRN #8 gm 11/07/21 [Rx] Ipratropium-Albuterol Nebulize [Duoneb 0.5 mg-3 mg/3 ml Soln] 3 ml INHALATION RT-QID PRN 11/08/21 [History] Acetaminophen Tab [Tylenol] 325 mg PO Q6HR PRN tab 11/12/21 [Rx] Chlorthalidone 25 mg PO DAILY #1 tab 11/12/21 [Rx] Famotidine [Pepcid] 20 mg PO BID tab 11/12/21 [Rx] Gabapentin [Neurontin] 100 mg PO TID@1000,1400,2200 #9 cap 11/12/21 [Rx] HYDROcodone/APAP 7.5-325MG [[place] 7.5-325] 1 tab PO BID #1 tab 11/12/21 [Rx] Meclizine [Antivert] 12.5 mg PO TID PRN tab 11/12/21 [Rx] Nicotine 21Mg/24Hr Patch [Habitrol] 1 patch TRANSDERM DAILY #14 patch 11/12/21 [Rx] lamoTRIgine [lamoTRIgine ODT] 50 mg PO BID@1000,2200 #12 tab 11/12/21 [Rx] lamoTRIgine [lamoTRIgine ODT] 200 mg PO BID@1000,2200 #4 tab 11/12/21 [Rx] predniSONE 0 mg PO DIRECTED #7 tab 11/12/21 [Rx] Follow up Appointment(s)/Referral(s): Danny Harris DO [Doctor of Osteopathic Medicine] - 12/03/21 2:30 pm [facility], [NON-STAFF] - As Needed Alejandro Barragan MD [Primary Care Provider] - 11/14/21 3:30 pm Discharge Disposition: HOME WITH HOME HEALTH SERVICES
== END 2021-11-12 13:41 | disposition home health service (06) ==
LOC: EC 09:37 → 4SSUR 11:58 → INTOOBSV 11:58 → 4SSUR 21:23 → UNDODISIN 11-12 13:41
PROVIDERS: ADMIT Hospitalist; ATTEND Hospitalist
PROC: 4A10X4Z Monitoring of Central Nervous Electrical Activity, External Approach (ICD-10-PCS; principal; 2021-11-08)
DX: R42 Dizziness and giddiness (principal); N17.9 Acute kidney failure, unspecified; J96.01 Acute respiratory failure with hypoxia; E86.0 Dehydration; E87.6 Hypokalemia; R53.1 Weakness; J44.1 Chronic obstructive pulmonary disease with (acute) exacerbation; I95.9 Hypotension, unspecified; R16.0 Hepatomegaly, not elsewhere classified; K29.00 Acute gastritis without bleeding; A08.4 Viral intestinal infection, unspecified; M47.812 Spondylosis without myelopathy or radiculopathy, cervical region; R74.01 Elevation of levels of liver transaminase levels; I69.354 Hemiplegia and hemiparesis following cerebral infarction affecting left non-dominant side; M19.91 Primary osteoarthritis, unspecified site; G93.89 Other specified disorders of brain; I10 Essential (primary) hypertension; G89.29 Other chronic pain; M51.26 Other intervertebral disc displacement, lumbar region; E78.5 Hyperlipidemia, unspecified; G40.409 Other generalized epilepsy and epileptic syndromes, not intractable, without status epilepticus; N39.0 Urinary tract infection, site not specified; K21.9 Gastro-esophageal reflux disease without esophagitis; F41.9 Anxiety disorder, unspecified; F32.A Depression, unspecified; R26.9 Unspecified abnormalities of gait and mobility; Z91.14 Patient's other noncompliance with medication regimen; F17.210 Nicotine dependence, cigarettes, uncomplicated; Z79.52 Long term (current) use of systemic steroids; Z79.899 Other long term (current) drug therapy; Z88.5 Allergy status to narcotic agent; Z88.8 Allergy status to other drugs, medicaments and biological substances; Z87.440 Personal history of urinary (tract) infections; Z71.6 Tobacco abuse counseling; Z90.710 Acquired absence of both cervix and uterus; Z98.51 Tubal ligation status; Z98.890 Other specified postprocedural states; Z80.1 Family history of malignant neoplasm of trachea, bronchus and lung; Z82.5 Family history of asthma and other chronic lower respiratory diseases; Z80.0 Family history of malignant neoplasm of digestive organs; Z81.2 Family history of tobacco abuse and dependence; Z82.49 Family history of ischemic heart disease and other diseases of the circulatory system
CPT/HCPCS: 83605; 96376; 96361 ×3; 96372 ×4; 96374; 96375; 99285; 36415; 94640 ×7; 94760 ×2; 95816; 93005; 97162; 97166; 80053 ×2; 80048; 80074; 80175; 80177; 83735 ×2; 84484; 85025 ×3; 85610; 85730; 81001; 71046; 76705; 72125; 70450; G0378 ×5; S4990; J2060; J1644 ×5; J7512 ×4

== ENCOUNTER → 2023-11-19 | Outpatient (CLI) | payer MEDICARE, OTHER ==
--- NOTE | 2023-11-19 11:58 | BD ---
EXAMINATION TYPE: Axial Bone Density DATE OF EXAM: 11/19/2023 CLINICAL HISTORY: 67 years old Female. ICD-10 CODE: M81.0 AGE RELATED OSTEOPOROSIS Height: 61 Weight: 124.2 FRAX RISK QUESTIONS: Alcohol (3 or more units per day): no Family History (Parent hip fracture): no Glucocorticoids (More than 3mos): no (Ex: prednisone, prednisolone, methylprednisolone, dexamethasone, and hydrocortisone). History of Fracture in Adulthood:L Wrist Secondary Osteoporosis: 1. Type 1 Diabetes: no 2. Hyperthyroidism: no 3. Menopause before 45: yes 4. Malnutrition: no 5. Chronic liver disease: no Rheumatoid Arthritis: no Current Tobacco Use: yes RISK FACTORS HISTORY OF: Hip Fracture (Right/Left): no Spine Fracture: no History of Wrist Fracture: Lt Wrist When:15 years ago Surgery to Spine/Hip(right/left)/Wrist (right/left): no MEDICATIONS: Thyroid Medications: no Osteoporosis Medications: no EXAM MEASUREMENTS: Bone mineral densitometry was performed using the [employer]. Bone mineral density as measured about the Lumbar spine is: ----- L1-L4(G/cm2): 0.968 T Score Values are as follows: ----- L1: -2.4 ----- L2: -2.4 ----- L3: -0.9 ----- L4: -1.8 ----- L1-L4: -1.8 Z Score Values are as follows: ----- L1: -0.5 ----- L2: -0.4 ----- L3: 1.0 ----- L4: 0.1 ----- L1-L4: 0.1 Baseline Study Bone mineral density about the R hip (g/cm2): 0.797 Bone mineral density about the L hip (g/cm2): 0.863 T Score values are as follows: -----R Neck: -1.3 -----L Neck: -0.9 -----R Total: -1.7 -----L Total: -1.1 Z Score values are as follows: -----R Neck: 0.4 -----L Neck: 0.8 -----R Total: -0.2 -----L Total: 0.3 Baseline Study FRAX%s: The graph provided illustrates a 14.1% chance for a major osteoporotic fx and a 2.4% chance f or the hips probability for fx in 10 years time. IMPRESSION: Osteopenia (T Score between -2.5 and -1). There is slightly increased risk of fracture and the patient may be considered for treatment. Re-Screen 2-5 years. NOTE: T-SCORE=SD OF THE YOUNG ADULT MEAN.
--- NOTE | 2023-11-19 15:12 | US ---
EXAMINATION TYPE: US duplex aorta DATE OF EXAM: 11/19/2023 COMPARISON: US 2020 CLINICAL INDICATION: Female, 67 years old with history of I71.40 AAA; TECHNIQUE: Multiple sonographic images of the abdominal aorta are obtained. FINDINGS: EXAM MEASUREMENTS: Abdominal Aorta: Proximal: 2.0 x 1.8cm Mid: 1.6 x 1.9cm Distal: 2.7 x 3.0cm Bifurcation: Right Iliac: 1.0 x 1.1cm Left Iliac: 1.0 x 1.0cm Calcifications, distal aorta measures in upper limits of normal IMPRESSION: Mild atheromatous calcification of the abdominal aorta but no evidence of aneurysm. There is mild sta ble dilatation of the distal abdominal aorta which measures 3.0 x 2.7 cm.
--- NOTE | 2023-11-20 11:29 | MM ---
Reason for Exam: Screening (asymptomatic). Last mammogram was performed 2 year(s) and 11 month(s) ago. Patient History: Menarche at age 13. First Full-Term at age 19. Postmenopausal. Other cancer. 03/29/2015, Benign Cyst Aspiration on the left side. Mother had breast cancer, age 78. Risk Values: Rosalva 5 year model risk: 3.1%. NCI Lifetime model risk: 11.0%. Prior Study Comparison: 03/29/2015 Left Diagnostic Mammogram, [facility]. 12/21/2020 Bilateral Screening Mammogram, [facility]. 01/30/2021 Left Diagnostic Mammogram, [facility]. Tissue Density: The breasts are almost entirely fatty. Findings: Analyzed By CAD. Left breast biopsy clip. Right breast: There is no suspicious group of microcalcifications or new suspicious mass. Left breast: There is no suspicious group of microcalcifications or new suspicious mass. Overall Assessment: Negative, BI-RAD 1 Management: Screening Mammogram of both breasts in [address] [facility] will attempt to contact patient to return for supplemental views and ultrasound if indicated. Patient should continue monthly self-breast exams. A clinical breast exam by your physician is recommended on an annual basis. This exam should not preclude additional follow-up of suspicious palpable abnormalities. Note on Rosalva scores and lifetime risk: 1. A Rosalva score greater than 3% is considered moderate risk. If this is the case, consider specialist referral to assess eligibility for a risk reducing agent. 2. If overall lifetime risk for the development of breast cancer is 20% or higher, the patient may qualify for future screening with alternating mammogram and breast MRI. Electronically signed and approved by: Danny Sen DO
== END | disposition home or self-care (01) ==
LOC: RADMAMWWP 08:59
PROVIDERS: ATTEND Pediatrics
DX: Z12.31 Encounter for screening mammogram for malignant neoplasm of breast (principal); M85.89 Other specified disorders of bone density and structure, multiple sites; I70.0 Atherosclerosis of aorta; M81.0 Age-related osteoporosis without current pathological fracture; I71.40 Abdominal aortic aneurysm, without rupture, unspecified; Z80.3 Family history of malignant neoplasm of breast; Z78.0 Asymptomatic menopausal state
CPT/HCPCS: 77063; 77067; 77080; 93979

== ENCOUNTER 2024-04-26 18:59 | Emergency (ER) | payer MEDICARE, OTHER ==
[2024-04-26 19:02] VITALS: RESP 18; TEMP 98.6
--- NOTE | 2024-04-26 19:53 | XR ---
EXAMINATION TYPE: XR KUB DATE OF EXAM: 04/26/2024 7:17 PM CLINICAL INDICATION:Female, 68 years old with history of Constipation; [facility] COMPARISON: None. TECHNIQUE: Supine radiographic view/s of the abdomen/pelvis obtained. FINDINGS: The bowel gas pattern is nonspecific, likely nonobstructive. Moderate to large amount of stool and so me gas in the distal colon. No gross evidence of organomegaly. No evidence of pneumoperitoneum in the limitations of supine technique. No pathologic calcifications are seen. Osseous structures appear g rossly intact. Mild/moderate degenerative changes of the spine and shoulders. Mild S-shaped scoliosi s of the visualized spine. Visualized lung bases show mild subsegmental atelectasis versus scarring. Vague nodular densities ove r the lower lungs likely relate to nipple shadows. IMPRESSION: Nonspecific, likely nonobstructive bowel gas pattern. Moderate to large colonic stool burden, correlate for constipation. [facility], , 04/26/2024 7:51 PM
--- NOTE | 2024-04-26 20:08 | ED ---
General Adult HPI - General Chief complaint: Abdominal Pain Stated complaint: Constipation Time Seen by Provider: 04/26/24 19:01 Source: patient, EMS, RN notes reviewed, old records reviewed Mode of arrival: EMS Limitations: no limitations - History of Present Illness Initial comments: 68-year-old female presenting with chief complaint of constipation. Patient states she has not had a bowel movement in the past 7 days. No abdominal pain. No vomiting. Patient does report rectal pain. - Related Data Home Medications Medication Instructions Recorded Confirmed Cyclobenzaprine [Flexeril] 10 mg PO HS@2200 07/12/15 11/08/21 Losartan Potassium 50 mg PO DAILY@1000 07/12/15 11/08/21 Omeprazole [PriLOSEC] 20 mg PO DAILY@1000 07/12/15 11/08/21 Rosuvastatin [Crestor] 10 mg PO HS@2200 06/04/20 11/08/21 levETIRAcetam [Keppra] 1,500 mg PO BID@1000,2200 06/04/20 11/08/21 Albuterol Sulfate [Ventolin HFA] 2 puff INHALATION RT-BID@1000,2200 11/04/21 11/08/21 FLUoxetine HCL [PROzac] 20 mg PO DAILY@1000 11/04/21 11/08/21 Tiotropium 18 Mcg/Puff [Spiriva] 1 cap INHALATION RT-DAILY@1000 11/04/21 11/08/21 Ipratropium-Albuterol Nebulize 3 ml INHALATION RT-QID PRN 11/08/21 11/08/21 [Duoneb 0.5 mg-3 mg/3 ml Soln] Previous Rx's Medication Instructions Recorded Albuterol Inhaler [Ventolin Hfa 1 puff INHALATION RT-QID PRN #8 gm 11/07/21 Inhaler] Acetaminophen Tab [Tylenol] 325 mg PO Q6HR PRN tab 11/12/21 Chlorthalidone 25 mg PO DAILY #1 tab 11/12/21 Famotidine [Pepcid] 20 mg PO BID tab 11/12/21 Gabapentin [Neurontin] 100 mg PO TID@1000,1400,2200 #9 cap 11/12/21 HYDROcodone/APAP 7.5-325MG [[place] 1 tab PO BID #1 tab 11/12/21 7.5-325] Meclizine [Antivert] 12.5 mg PO TID PRN tab 11/12/21 Nicotine 21Mg/24Hr Patch [Habitrol] 1 patch TRANSDERM DAILY #14 patch 11/12/21 lamoTRIgine [lamoTRIgine ODT] 50 mg PO BID@1000,2200 #12 tab 11/12/21 lamoTRIgine [lamoTRIgine ODT] 200 mg PO BID@1000,2200 #4 tab 11/12/21 predniSONE 0 mg PO DIRECTED #7 tab 11/12/21 Docusate [Colace] 100 mg PO BID #60 capsule 04/26/24 polyethylene glycoL 3350 [Miralax] 17 gm PO DAILY #527 gm 04/26/24 Allergies Allergy/AdvReac Type Severity Reaction Status Date / Time codeine Allergy Itching Verified 04/26/24 19:02 topiramate [From Topamax] Allergy Unknown Verified 04/26/24 19:02 Review of Systems ROS Statement: Those systems with pertinent positive or pertinent negative responses have been documented in the HPI. ROS Other: All systems not noted in ROS Statement are negative. Past Medical History Past Medical History: COPD, CVA/TIA, GERD/Reflux, Hyperlipidemia, Hypertension, Memory Impairment, Osteoarthritis (OA), Seizure Disorder Additional Past Medical History / Comment(s): 07/12/15 Pt woke this AM and accidentally took extra dose of her xanax. She normally takes 0.5mg xanax but by accident, took 2 tablets. After taking xanax, she couldn't stand up-had weakness in both legs. Pt has some weakness/clumsiness in L arm and L leg from old CVA. Family also noticed slurred speech this AM. Pt is being admitted with clinical impression of TIA and acute maxoid sinusitis. 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 History of Any Multi-Drug Resistant Organisms: None Reported Past Surgical History: Hysterectomy, Tonsillectomy, Tubal Ligation Additional Past Surgical History / Comment(s): Aldo aneurysm clipping, sinus surgery, R carpal and R antecubital tunnel releases, 2 back injections for pain with last one done 03/14/15, hemorrhoidectomy, colonoscopy 2014 which was normal. Past Anesthesia/Blood Transfusion Reactions: No Reported Reaction Additional Past Anesthesia/Blood Transfusion Reaction / Comment(s): Pt states she has never received blood. Past Psychological History: Anxiety, Depression Smoking Status: Current every day smoker Past Alcohol Use History: None Reported Past Drug Use History: Marijuana - Past Family History Father Family Medical History: Cancer, COPD, Pneumonia Additional Family Medical History / Comment(s): Father had colon and lung cancer. He was a smoker. He of pneumonia at age 72 yrs. Mother Family Medical History: Vascular Disorder Additional Family Medical History / Comment(s): Mother has caratid artery disease- she is living and is 87yrs old. General Exam General appearance: alert, in no apparent distress Head exam: Present: atraumatic, normocephalic Eye exam: Present: normal appearance, PERRL Neck exam: Present: normal inspection. Absent: tenderness, meningismus Respiratory exam: Present: normal lung sounds bilaterally. Absent: respiratory distress, wheezes Cardiovascular Exam: Present: regular rate, normal rhythm GI/Abdominal exam: Present: soft, distended. Absent: tenderness Rectal exam: Present: fecal impaction, hemorrhoids Extremities exam: Present: normal inspection Back exam: Present: normal inspection Neurological exam: Present: alert, oriented X3 Psychiatric exam: Present: normal affect, normal mood Course Vital Signs 04/26/24 19:00 Temperature 98.6 F Pulse Rate 84 Respiratory 18 Rate Blood Pressure 118/77 O2 Sat by Pulse 95 Oximetry Procedures - Rectal Disimpaction Consent Obtained: verbal consent Indication: fecal impaction Procedural Sedation: No Sedation/Analgesia: none Technique: manual disimpaction with gloved finger Result: significant stool output Complications: none Patient Tolerated Procedure: well Medical Decision Making - Medical Decision Making Was pt. sent in by a medical professional or institution ([facility] Hernandez, [employer], urgent care, hospital, or longterm...) When possible be specific @ -No Did you speak to anyone other than the patient for history (EMS, parent, family, police, friend...)? What history was obtained from this source @ -No Did you review nursing and triage notes (agree or disagree)? Why? @ -I reviewed and agree with nursing and triage notes Were old charts reviewed (outside hosp., previous admission, EMS record, old EKG, old radiological studies, urgent care reports/EKG's, longterm records)? Report findings @ -No old charts were reviewed Differential Abdominal Pain Women: Appendicitis, Cholecystitis, diverticulosis, ischemic bowel, pancreatitis, hepatitis, UTI, gastroenteritis, AAA, incarcerated hernia, bowel obstruction, constipation, inflammatory bowel, hepatitis, peptic ulcer disease, splenic infarction, perforated viscus, vulvitis, ovarian torsion, PID, kidney stone, placenta abruption, this is not meant to be an all-inclusive list EKG interpreted by me (3pts min.). @ -As above X-rays interpreted by me (1pt min.). @ -X-ray shows large stool burden in the colon CT interpreted by me (1pt min.). @ -None done U/S interpreted by me (1pt. min.). @ -None done What testing was considered but not performed or refused? (CT, X-rays, U/S, labs)? Why? @ -None What meds were considered but not given or refused? Why? @ -None Did you discuss the management of the patient with other professionals (professionals i.e. , PA, [employer], lab, RT, psych nurse, social sciences department chair, post manager, teacher, intelligence officer, field nurse case manager)? Give summary @ -No Was smoking cessation discussed for >3mins.? @ -No Was critical care preformed (if so, how long)? @ -No Were there social determinants of health that impacted care today? How? (Homelessness, low income, unemployed, alcoholism, drug addiction, transportation, low edu. Level, literacy, decrease access to med. care, fci, rehab)? @ -No Was there de-escalation of care discussed even if they declined (Discuss DNR or withdrawal of care, Hospice)? DNR status @ -No What co-morbidities impacted this encounter? (DM, HTN, Smoking, COPD, CAD, Cancer, CVA, ARF, Chemo, Hep., AIDS, mental health diagnosis, sleep apnea, morbid obesity)? @ -None Was patient admitted / discharged? Hospital course, mention meds given and route, prescriptions, significant lab abnormalities, going to OR and other pertinent info. @ -68-year-old female with 7-day history of constipation. Patient does require disimpaction in the emergency department for fecal impaction. Unable to provide enema due to impacted stool. Moderate stool is removed. Patient is instructed on home laxatives and should follow-up with her primary care provider Undiagnosed new problem with uncertain prognosis? @ -No Drug Therapy requiring intensive monitoring for toxicity (Heparin, Nitro, Insulin, Cardizem)? @ -No Were any procedures done? @ -No Diagnosis/symptom? @Constipation Acute, or Chronic, or Acute on Chronic? @ -Acute Uncomplicated (without systemic symptoms) or Complicated (systemic symptoms)? @ -Default Side effects of treatment? @ -No Exacerbation, Progression, or Severe Exacerbation? @ -No Poses a threat to life or bodily function? How? (Chest pain, [place], [place], pneumonia, PE, COPD, DKA, ARF, appy, cholecystitis, CVA, Diverticulitis, Homicidal, Suicidal, threat to staff... and all critical care pts) @ -No Disposition Clinical Impression: Constipation Disposition: HOME SELF-CARE Condition: Fair Instructions (If sedation given, give patient instructions): Constipation (ED) Prescriptions: Docusate [Colace] 100 mg PO BID #60 capsule polyethylene glycoL 3350 [Miralax] 17 gm PO DAILY #527 gm Is patient prescribed a controlled substance at d/c from ED?: No Referrals: Alejandro Barragan MD [Primary Care Provider] - 1-2 days Time of Disposition: 20:07
[2024-04-26] MEDS: KETOROLAC 15 MG/ML 1 ML VIAL IM STA (22:28)
[2024-04-26 22:37] VITALS: BP 117/92; PULSE 111
== END 2024-04-26 22:44 | disposition home or self-care (01) ==
LOC: EC 18:59
CPT/HCPCS: 74018; 96372; 99284

== ENCOUNTER → 2024-05-11 | Outpatient (CLI) | payer MEDICARE, OTHER ==
[2024-05-11 10:38] LABS: African American GFR (CKD) >90 (>60 ml/min/1.73 sqM); Blood Urea Nitrogen 23 mg/dL (7-17); Non-African American GFR(CKD) >90 (>60 ml/min/1.73 sqM)
--- NOTE | 2024-05-11 11:41 | CT ---
EXAMINATION TYPE: CT angio head neck CT DLP: 1396.40 mGycm, Automated exposure control for dose reduction was used. DATE OF EXAM: 05/11/2024 11:29 AM COMPARISON: CT cervical spine 11/09/2021, CT brain 11/08/2021, carotid ultrasound 01/30/2021. CLINICAL INDICATION:Female, 68 years old with history of I72.9 ANEURYSM R55 SYNCOPE; PHH, syncope epi sodes. hx of strokes and brain aneurysm with clips. TECHNIQUE: Axially acquired helical CT angiogram of the head and neck was obtained with contrast util izing 75 cc of Isovue-370 administered intravenously. Axial images are supplemented with 3D reconstru ctions which were post-processed at an independent workstation. NASCET criteria used. FINDINGS: CTA HEAD: No evidence of acute intracranial hemorrhage, mass effect, or midline shift. Redemonstration of large areas of malacia within the right frontal, parietal, temporal, occipital lobes. Similar hypodensitie s scattered regions in the periventricular white matter. Right sided craniotomy defects. The ventricl es, sulci, and cisterns are unremarkable. Bilateral aphakia. The visualized portions of the internal carotid arteries, middle cerebral arteries, anterior cerebral arteries, and posterior cerebral arteries are patent. Postsurgical changes with aneurysm clip in sta ble position within the posterior right cavernous/basilar region. This creates streak artifact which limits evaluation. The basilar and vertebral arteries are patent. CTA NECK: Right Carotid System: The common carotid artery and external carotid artery are patent. The carotid bifurcation demonstrate s no evidence of hemodynamically significant stenosis. The remaining portions of the internal carotid artery demonstrate normal size without significant narrowing. Left Carotid System: The common carotid artery and external carotid artery are patent. The carotid bifurcation demonstrate s no evidence of hemodynamically significant stenosis. The remaining portions of the internal carotid artery demonstrate normal size without significant narrowing. Vertebral arteries are patent without evidence hemodynamically significant stenosis. Vertebral arteri es are codominant. There is a 4 vessel aortic arch. The origins of the great vessels are patent. No evidence of hemodyna mically significant stenosis. Advanced centrilobular emphysematous changes. IMPRESSION: 1. No evidence of dissection of the cervical internal carotid arteries or vertebral arteries or any e vidence of significant stenosis at the carotid bifurcations. 2. No evidence of high-grade stenosis or intracranial aneurysm. Stable postsurgical changes with aneu rysm clip identified within the region of the right ICA/basilar. 3. Stable large region of encephalomalacia involving the right frontal, parietal, temporal, and occip ital lobes. 4. Nonspecific white matter changes redemonstrated likely related to chronic small vessel ischemic di sease. 5. Advanced COPD changes. [facility], , 05/11/2024 11:38 AM
== END | disposition home or self-care (01) ==
LOC: RADCTMAIN 09:56
PROVIDERS: ATTEND Psychiatry & Neurology Neurology
CPT/HCPCS: 36415; 70496; 70498; 82565; 84520

== ENCOUNTER 2024-06-01 18:26 | Inpatient (IN) | payer MEDICARE, OTHER ==
--- NOTE | 2024-06-01 18:36 | ED ---
Weakness HPI - General Chief complaint: Weakness Stated complaint: weakness Time Seen by Provider: 06/01/24 18:30 Source: patient, EMS Mode of arrival: EMS Limitations: no limitations - Related Data Home Medications Medication Instructions Recorded Confirmed Cyclobenzaprine [Flexeril] 10 mg PO HS@2200 07/12/15 11/08/21 Losartan Potassium 50 mg PO DAILY@1000 07/12/15 11/08/21 Omeprazole [PriLOSEC] 20 mg PO DAILY@1000 07/12/15 11/08/21 Rosuvastatin [Crestor] 10 mg PO HS@2200 06/04/20 11/08/21 levETIRAcetam [Keppra] 1,500 mg PO BID@1000,0 06/04/20 11/08/21 Albuterol Sulfate [Ventolin HFA] 2 puff INHALATION RT-BID@1000,2200 11/04/21 11/08/21 FLUoxetine HCL [PROzac] 20 mg PO DAILY@1000 11/04/21 11/08/21 Tiotropium 18 Mcg/Puff [Spiriva] 1 cap INHALATION RT-DAILY@1000 11/04/21 11/08/21 Ipratropium-Albuterol Nebulize 3 ml INHALATION RT-QID PRN 11/08/21 11/08/21 [Duoneb 0.5 mg-3 mg/3 ml Soln] Previous Rx's Medication Instructions Recorded Albuterol Inhaler [Ventolin Hfa 1 puff INHALATION RT-QID PRN #8 gm 11/07/21 Inhaler] Acetaminophen Tab [Tylenol] 325 mg PO Q6HR PRN tab 11/12/21 Chlorthalidone 25 mg PO DAILY #1 tab 11/12/21 Famotidine [Pepcid] 20 mg PO BID tab 11/12/21 Gabapentin [Neurontin] 100 mg PO TID@1000,1400,0 #9 cap 11/12/21 HYDROcodone/APAP 7.5-325MG [[place] 1 tab PO BID #1 tab 11/12/21 7.5-325] Meclizine [Antivert] 12.5 mg PO TID PRN tab 11/12/21 Nicotine 21Mg/24Hr Patch [Habitrol] 1 patch TRANSDERM DAILY #14 patch 11/12/21 lamoTRIgine [lamoTRIgine ODT] 50 mg PO BID@1000,2200 #12 tab 11/12/21 lamoTRIgine [lamoTRIgine ODT] 200 mg PO BID@1000,2200 #4 tab 11/12/21 predniSONE 0 mg PO DIRECTED #7 tab 11/12/21 Docusate [Colace] 100 mg PO BID #60 capsule 04/26/24 polyethylene glycoL 3350 [Miralax] 17 gm PO DAILY #527 gm 04/26/24 Allergies Allergy/AdvReac Type Severity Reaction Status Date / Time codeine Allergy Itching Verified 04/26/24 19:02 topiramate [From Topamax] Allergy Unknown Verified 04/26/24 19:02 Review of Systems ROS Statement: Those systems with pertinent positive or pertinent negative responses have been documented in the HPI. ROS Other: All systems not noted in ROS Statement are negative. Past Medical History Past Medical History: COPD, CVA/TIA, GERD/Reflux, Hyperlipidemia, Hypertension, Memory Impairment, Osteoarthritis (OA), Seizure Disorder Additional Past Medical History / Comment(s): 07/12/15 Pt woke this AM and accidentally took extra dose of her xanax. She normally takes 0.5mg xanax but by accident, took 2 tablets. After taking xanax, she couldn't stand up-had weakness in both legs. Pt has some weakness/clumsiness in L arm and L leg from old CVA. Family also noticed slurred speech this AM. Pt is being admitted with clinical impression of TIA and acute maxoid sinusitis. 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 History of Any Multi-Drug Resistant Organisms: None Reported Past Surgical History: Hysterectomy, Tonsillectomy, Tubal Ligation Additional Past Surgical History / Comment(s): Aldo aneurysm clipping, sinus surgery, R carpal and R antecubital tunnel releases, 2 back injections for pain with last one done 8/26/15, hemorrhoidectomy, colonoscopy 2014 which was normal. Past Anesthesia/Blood Transfusion Reactions: No Reported Reaction Additional Past Anesthesia/Blood Transfusion Reaction / Comment(s): Pt states she has never received blood. Past Psychological History: Anxiety, Depression Smoking Status: Current every day smoker Past Alcohol Use History: None Reported Past Drug Use History: Marijuana - Past Family History Father Family Medical History: Cancer, COPD, Pneumonia Additional Family Medical History / Comment(s): Father had colon and lung cancer. He was a smoker. He of pneumonia at age 72 yrs. Mother Family Medical History: Vascular Disorder Additional Family Medical History / Comment(s): Mother has caratid artery disease- she is living and is 87yrs old. General Exam Limitations: no limitations Course Vital Signs 06/01/24 06/01/24 18:27 20:13 Temperature 98.6 F Pulse Rate 78 76 Respiratory 17 16 Rate Blood Pressure 124/75 113/71 O2 Sat by Pulse 96 99 Oximetry Medical Decision Making - Medical Decision Making Was pt. sent in by a medical professional or institution (, PA, SHIPPING AND RECEIVING OPERATOR, urgent care, hospital, or shelter...) When possible be specific @ -[No] Did you speak to anyone other than the patient for history (EMS, parent, family, police, friend...)? What history was obtained from this source @ -[No] Did you review nursing and triage notes (agree or disagree)? Why? @ -[I reviewed and agree with nursing and triage notes] Were old charts reviewed (outside hosp., previous admission, EMS record, old EKG, old radiological studies, urgent care reports/EKG's, shelter records)? Report findings @ -[No old charts were reviewed] Differential Diagnosis (chest pain, altered mental status, abdominal pain women, abdominal pain men, vaginal bleeding, weakness, fever, dyspnea, syncope, headache, dizziness, GI bleed, back pain, seizure, CVA, palpatations, mental health, musculoskeletal)? @ -[not applicable] EKG interpreted by me (3pts min.). @ -Yes and demonstrates sinus rhythm with a rate of 73. AR interval 182. QRS 99. QTc of 438. No acute ST segment elevations or depressions X-rays interpreted by me (1pt min.). @ -[None done] CT interpreted by me (1pt min.). @ -[None done] U/S interpreted by me (1pt. min.). @ -[None done] What testing was considered but not performed or refused? (CT, X-rays, U/S, labs)? Why? @ -[None] What meds were considered but not given or refused? Why? @ -[None] Did you discuss the management of the patient with other professionals (professionals i.e. DrNan, PA, SHIPPING AND RECEIVING OPERATOR, lab, RT, psych nurse, oncology social worker, hearing consultant, teacher, credit control officer, gearcase assembler)? Give summary @ -[No] Was smoking cessation discussed for >3mins.? @ -[No] Was critical care preformed (if so, how long)? @ -[No] Were there social determinants of health that impacted care today? How? (Homelessness, low income, unemployed, alcoholism, drug addiction, transportation, low edu. Level, literacy, decrease access to med. care, skilled nursing, rehab)? @ -[No] Was there de-escalation of care discussed even if they declined (Discuss DNR or withdrawal of care, Hospice)? DNR status @ -[No] What co-morbidities impacted this encounter? (DM, HTN, Smoking, COPD, CAD, Cancer, CVA, ARF, Chemo, Hep., AIDS, mental health diagnosis, sleep apnea, morbid obesity)? @ -[None] Was patient admitted / discharged? Hospital course, mention meds given and route, prescriptions, significant lab abnormalities, going to OR and other pertinent info. @ -[hospital course] Undiagnosed new problem with uncertain prognosis? @ -[No] Drug Therapy requiring intensive monitoring for toxicity (Heparin, Nitro, Insulin, Cardizem)? @ -[No] Were any procedures done? @ -[No] Diagnosis/symptom? @ -[default] Acute, or Chronic, or Acute on Chronic? @ -[default] Uncomplicated (without systemic symptoms) or Complicated (systemic symptoms)? @ -[default] Side effects of treatment? @ -[No] Exacerbation, Progression, or Severe Exacerbation? @ -[No] Poses a threat to life or bodily function? How? (Chest pain, [place], [place], pneumonia, PE, COPD, DKA, ARF, appy, cholecystitis, CVA, Diverticulitis, Homicidal, Suicidal, threat to staff... and all critical care pts) @ -[No] - Lab Data Result diagrams: 06/01/24 19:11 06/01/24 19:11 Lab Results 06/01/24 06/01/24 06/01/24 Range/Units 19:11 19:11 19:11 WBC 8.6 (3.8-10.6) k/uL RBC 4.52 (3.80-5.40) m/uL Hgb 13.5 (11.4-16.0) gm/dL Hct 39.8 (34.0-46.0) % MCV 88.2 (80.0-100.0) fL MCH 29.9 (25.0-35.0) pg MCHC 33.9 (31.0-37.0) g/dL RDW 13.1 (11.5-15.5) % Plt Count 390 (150-450) k/uL MPV 7.0 Neutrophils % 59 % Lymphocytes % 31 % Monocytes % 7 % Eosinophils % 1 % Basophils % 1 % Neutrophils # 5.1 (1.3-7.7) k/uL Lymphocytes # 2.6 (1.0-4.8) k/uL Monocytes # 0.6 (0-1.0) k/uL Eosinophils # 0.1 (0-0.7) k/uL Basophils # 0.1 (0-0.2) k/uL PT 10.1 (10.0-12.5) sec INR 0.9 (<1.2) APTT 21.6 L (22.0-30.0) sec Sodium 136 L (137-145) mmol/L Potassium 3.2 L (3.5-5.1) mmol/L Chloride 101 (98-107) mmol/L Carbon Dioxide 31 H (22-30) mmol/L Anion Gap 4 mmol/L BUN 17 (7-17) mg/dL Creatinine 0.69 (0.52-1.04) mg/dL Est GFR (CKD-EPI)AfAm >90 (>60 ml/min/1.73 sqM) Est GFR (CKD-EPI)NonAf >90 (>60 ml/min/1.73 sqM) Glucose 112 H (74-99) mg/dL Calcium 9.4 (8.4-10.2) mg/dL Magnesium 1.9 (1.6-2.3) mg/dL Total Bilirubin 0.6 (0.2-1.3) mg/dL AST 24 (14-36) U/L ALT 13 (4-34) U/L Alkaline Phosphatase 82 (38-126) U/L Troponin I (0.000-0.034) ng/mL Total Protein 6.4 (6.3-8.2) g/dL Albumin 4.4 (3.5-5.0) g/dL Urine Color Urine Appearance (Clear) Urine pH (5.0-8.0) Ur Specific [place] (1.001-1.035) Urine Protein (Negative) Urine Glucose (UA) (Negative) Urine Ketones (Negative) Urine Blood (Negative) Urine Nitrite (Negative) Urine Bilirubin (Negative) Urine Urobilinogen (<2.0) mg/dL Ur Leukocyte Esterase (Negative) Urine RBC (0-5) /hpf Urine WBC (0-5) /hpf Ur Transition Epith Cell (0-1) /hpf Urine Bacteria (None) /hpf 06/01/24 06/01/24 Range/Units 19:11 19:15 WBC (3.8-10.6) k/uL RBC (3.80-5.40) m/uL Hgb (11.4-16.0) gm/dL Hct (34.0-46.0) % MCV (80.0-100.0) fL MCH (25.0-35.0) pg MCHC (31.0-37.0) g/dL RDW (11.5-15.5) % Plt Count (150-450) k/uL MPV Neutrophils % % Lymphocytes % % Monocytes % % Eosinophils % % Basophils % % Neutrophils # (1.3-7.7) k/uL Lymphocytes # (1.0-4.8) k/uL Monocytes # (0-1.0) k/uL Eosinophils # (0-0.7) k/uL Basophils # (0-0.2) k/uL PT (10.0-12.5) sec INR (<1.2) APTT (22.0-30.0) sec Sodium (137-145) mmol/L Potassium (3.5-5.1) mmol/L Chloride (98-107) mmol/L Carbon Dioxide (22-30) mmol/L Anion Gap mmol/L BUN (7-17) mg/dL Creatinine (0.52-1.04) mg/dL Est GFR (CKD-EPI)AfAm (>60 ml/min/1.73 sqM) Est GFR (CKD-EPI)NonAf (>60 ml/min/1.73 sqM) Glucose (74-99) mg/dL Calcium (8.4-10.2) mg/dL Magnesium (1.6-2.3) mg/dL Total Bilirubin (0.2-1.3) mg/dL AST (14-36) U/L ALT (4-34) U/L Alkaline Phosphatase (38-126) U/L Troponin I <0.012 (0.000-0.034) ng/mL Total Protein (6.3-8.2) g/dL Albumin (3.5-5.0) g/dL Urine Color Colorless Urine Appearance Clear (Clear) Urine pH 6.5 (5.0-8.0) Ur Specific [place] 1.010 (1.001-1.035) Urine Protein Negative (Negative) Urine Glucose (UA) Negative (Negative) Urine Ketones Negative (Negative) Urine Blood Trace H (Negative) Urine Nitrite Positive H (Negative) Urine Bilirubin Negative (Negative) Urine Urobilinogen <2.0 (<2.0) mg/dL Ur Leukocyte Esterase Moderate H (Negative) Urine RBC 1 (0-5) /hpf Urine WBC 1 (0-5) /hpf Ur Transition Epith Cell <1 (0-1) /hpf Urine Bacteria Occasional H (None) /hpf Disposition Clinical Impression: Near syncope, UTI (urinary tract infection) Disposition: ADMITTED IP TO THIS HOSP Condition: Stable Is patient prescribed a controlled substance at d/c from ED?: No Referrals: Alejandro Barragan MD [Primary Care Provider] - 1-2 days Time of Disposition: 21:15 Decision to Admit Reason: Admit from EC Decision Date: 06/01/24 Decision Time: 21:15
[2024-06-01 19:18] LABS: Basophils # (A) 0.1 k/uL (0-0.2); Basophils % (A) 1 %; Eosinophils # (A) 0.1 k/uL (0-0.7); Eosinophils % (A) 1 %; HCT 39.8 % (34.0-46.0); HGB 13.5 gm/dL (11.4-16.0); Lymphocytes # (A) 2.6 k/uL (1.0-4.8); Lymphocytes % (A) 31 %; MCH 29.9 pg (25.0-35.0); MCHC 33.9 g/dL (31.0-37.0); MCV 88.2 fL (80.0-100.0); Monocytes # (A) 0.6 k/uL (0-1.0); Monocytes % (A) 7 %; Neutrophils # (A) 5.1 k/uL (1.3-7.7); Neutrophils % (A) 59 %; Platelet Count 390 k/uL (150-450); RBC 4.52 m/uL (3.80-5.40); RDW 13.1 % (11.5-15.5); WBC 8.6 k/uL (3.8-10.6)
[2024-06-01 19:34] LABS: INR 0.9 (<1.2); Prothrombin Time 10.1 sec (10.0-12.5)
[2024-06-01 19:37] LABS: Appearance,Urine Clear (Clear); Bacteria,Urine Occasional /hpf; Bilirubin,Urine Negative (Negative); Blood,Urine Trace (Negative); Color,Urine Colorless; Glucose,Urine (UA) Negative (Negative); Ketones,Urine Negative (Negative); Leukocyte Esterase,Urine Moderate (Negative); Nitrite,Urine Positive (Negative); PH, Urine 6.5 (5.0-8.0); Protein,Urine Negative (Negative); RBC,Urine 1 /hpf (0-5); Transitional Epi Cells,Urine <1 /hpf (0-1); Urobilinogen,Urine <2.0 mg/dL (<2.0); WBC,Urine 1 /hpf (0-5)
[2024-06-01 19:39] LABS: ALT 13 U/L (4-34); AST 24 U/L (14-36); African American GFR (CKD) >90 (>60 ml/min/1.73 sqM); Albumin 4.4 g/dL (3.5-5.0); Alkaline Phosphatase 82 U/L (38-126); Anion Gap 4 mmol/L; Blood Urea Nitrogen 17 mg/dL (7-17); Calcium 9.4 mg/dL (8.4-10.2); Carbon Dioxide 31 mmol/L (22-30); Chloride 101 mmol/L (98-107); Glucose 112 mg/dL (74-99); Magnesium 1.9 mg/dL (1.6-2.3); Non-African American GFR(CKD) >90 (>60 ml/min/1.73 sqM); Partial Thromboplastin Time 21.6 sec (22.0-30.0); Potassium 3.2 mmol/L (3.5-5.1); Sodium 136 mmol/L (137-145); Total Bilirubin 0.6 mg/dL (0.2-1.3); Total Protein 6.4 g/dL (6.3-8.2)
--- NOTE | 2024-06-01 20:07 | XR ---
EXAMINATION TYPE: XR chest 2V DATE OF EXAM: 06/01/2024 7:57 PM COMPARISON: Chest radiographs from 11/08/2021 CLINICAL INDICATION: Female, 68 years old with history of syncope; TECHNIQUE: XR chest 2V Frontal and lateral views of the chest. FINDINGS: Lungs/Pleura: There is flattening of the diaphragm with increased lucency of the lungs. No evidence o f pneumothorax, pleural effusion or focal consolidation. Pulmonary vascularity: Unremarkable. Heart/mediastinum: Cardiomediastinal silhouette is unremarkable. Musculoskeletal: No acute osseous pathology. IMPRESSION: 1. No acute cardiopulmonary disease process. 2. COPD changes. [facility], , 06/01/2024 8:04 PM
[2024-06-01] MEDS ORDERED: NALOXONE 0.4 MG/ML 1 ML VIAL IV PRN (21:15)
[2024-06-01] MEDS ORDERED: ACETAMINOPHEN TAB 325 MG TAB PO PRN (21:15)
[2024-06-01] MEDS: cefTRIAXone IN SWFI 1,000 MG/10 ML SYRINGE IVP STA (21:20)
[2024-06-01] MEDS: SODIUM CHLORIDE 0.9% 1,000 ML IV SCH (21:24)
[2024-06-01] MEDS: NICOTINE 21MG/24HR PATCH TRANSDERM STA (22:57)
[2024-06-02 07:15] LABS: Basophils # (A) 0.1 k/uL (0-0.2); Basophils % (A) 1 %; Eosinophils # (A) 0.1 k/uL (0-0.7); Eosinophils % (A) 1 %; HCT 38.6 % (34.0-46.0); HGB 12.8 gm/dL (11.4-16.0); Lymphocytes # (A) 2.5 k/uL (1.0-4.8); Lymphocytes % (A) 41 %; MCH 29.6 pg (25.0-35.0); MCHC 33.1 g/dL (31.0-37.0); MCV 89.3 fL (80.0-100.0); Mean Platelet Volume 6.4; Monocytes # (A) 0.5 k/uL (0-1.0); Monocytes % (A) 7 %; Neutrophils # (A) 2.9 k/uL (1.3-7.7); Neutrophils % (A) 48 %; Platelet Count 384 k/uL (150-450); RBC 4.33 m/uL (3.80-5.40); RDW 12.9 % (11.5-15.5); WBC 6.1 k/uL (3.8-10.6)
[2024-06-02 07:24] LABS: African American GFR (CKD) >90 (>60 ml/min/1.73 sqM); Anion Gap 4 mmol/L; Blood Urea Nitrogen 16 mg/dL (7-17); Calcium 8.5 mg/dL (8.4-10.2); Carbon Dioxide 33 mmol/L (22-30); Chloride 103 mmol/L (98-107); Glucose 76 mg/dL (74-99); Non-African American GFR(CKD) >90 (>60 ml/min/1.73 sqM); Potassium 3.1 mmol/L (3.5-5.1); Sodium 140 mmol/L (137-145)
[2024-06-02] MEDS ORDERED: NAPROXEN 250 MG TAB PO PRN (10:05)
[2024-06-02] MEDS: ALBUTEROL NEBULIZED 2.5 MG/3 ML INHALATION SCH (12:04)
[2024-06-02] MEDS: IPRATROPIUM 0.5 MG/2.5 ML NEBU INHALATION SCH (12:04)
[2024-06-02] MEDS: HYDROcodone/APAP 7.5-325MG 1 EACH TAB PO SCH (12:18)
[2024-06-02] MEDS: ENOXAPARIN 40 MG/0.4 ML SYRINGE SQ SCH (12:34)
[2024-06-02] MEDS: PANTOPRAZOLE 40 MG TABLET PO SCH (12:36)
[2024-06-02] MEDS: LOSARTAN 50 MG TAB PO SCH (12:36)
[2024-06-02] MEDS: OXYBUTYNIN XL 5 MG TAB.ER.24 PO SCH (12:36)
[2024-06-02] MEDS: FLUoxetine HCL 20 MG CAP PO SCH (13:20)
[2024-06-02] MEDS: lamoTRIgine 25 MG TAB PO SCH (13:20)
[2024-06-02] MEDS: lamoTRIgine 100 MG TAB PO SCH (13:21)
[2024-06-02] MEDS: POTASSIUM CHLORIDE ER 20 MEQ TAB.ER PO STA (13:56)
[2024-06-02] MEDS: GABAPENTIN 100 MG CAP PO SCH (13:57)
--- NOTE | 2024-06-02 16:21 | P.HPIM ---
History of Present Illness H&P Date: 06/02/24 Chief Complaint: Recurrent falls Very pleasant 68 years old patient who presents, follows with Dr. Brennen Barragan. Extensive medical history to include COPD, GERD, hyperlipidemia, hypertension, some cognitive impairment, osteoarthritis, seizure disorder. 1988 did have cerebral aneurysm rupture with some right-sided occipital lobe stroke with some left and left arm left leg foot weakness. Had seizures several years ago. She has chronic back pain with herniated disc L3-L4. Does follow with neurologist pain management with Dr. Medina. Has been taking her medications for some time. Patient presented to ER yesterday evening. Patient by mistake took an extra dose of Xanax. Instead of 0.5 mg x 1 she took 2 tablets. She could not stand up and felt weakness in both legs. She has some chronic weakness and clumsiness in the left arm and left leg from prior stroke. Family felt she may have had a bit of slurred speech. Patient states she has been having falls. Does not feel sleepy. Does get dizzy lightheaded. None of her medications are new. Appetite is good. Does have chronic pain. No change in bowel pattern. Review of systems: GEN.: Tired EYES: None HEENT: None NECK: None RESPIRATORY: Some baseline shortness of breath CARDIOVASCULAR: None GASTROINTESTINAL: None GENITOURINARY: Some urinary symptoms MUSCULOSKELETAL: Chronic pain especially in the back e LYMPHATICS: None HEMATOLOGICAL: None PSYCHIATRY: None NEUROLOGICAL: Chronic left-sided clumsiness thumb weakness e Past medical history to include: GERD, hypertension, hyperlipidemia, seizure disorder, cerebral aneurysm rupture right-sided occipital lobe stroke with some left arm and left leg weakness in 1988. Herniated disc L3-L4 anxiety depression. Social history: Lives alone. Smoking a pack a day f since age of 16. No alcohol. Physical examination: VITAL SIGNS: 98.1, 77, 16, 151 x 77, 94% room air. Orthostatic: Negative GENERAL: Reclining in bed, comfortable EYES: Pupils equal. Conjunctiva normal. HEENT: External appearance of nose and ears normal, oral cavity grossly normal. NECK: JVD not raised; masses not palpable. HEART: First and second heart sounds are normal; no edema. LUNGS: Respiratory rate normal; decreased breath sounds ABDOMEN: Soft, mildly tender, liver spleen not palpable, no masses palpable. PSYCH: [Alert and oriented x3; mood and affect normal. MUSCULOSKELETAL:No Clubbing/cyanosis;muscles-grossly intact NEUROLOGICAL: Slight weakness of the left side. INVESTIGATIONS, reviewed in the clinical context: June 02, 2024: White count 6.1 hemoglobin 12.8 platelets 284 sodium 140 potassium 3.1 BUN 16 creatinine 0.66 UA positive for nitrite leukoesterase bacteria Assessment and plan: -Patient is having frequent falls. Denies any sleepiness or drowsiness. Negative orthostatic. . Patient could be having drop attacks that could be from hypokalemia. Patient does take multiple medications. Will have them reviewed both by psychiatry and neurology. Telemetry Add scheduled potassium -COPD in a current smoker Bronchodilators. -Chronic nicotine dependence, cigarette smoker Nicotine patch -GERD Prilosec 20 mg a day -Essential hypertension, losartan 50 mg a day, will change to nightly Chlorthalidone 25 mg a day -Primary osteoarthritis including 20 to disc L3-L4 [place] 7.5 twice a day at home. Will change to [place] 5 mg 3 times daily, Flexeril 5 mg daily at bedtime -Hyperlipidemia Crestor 10 mg daily at bedtime -Chronic urinary incontinence Oxybutynin 5 mg daily -Depression and anxiety Prozac 20 mg a -Seizure disorder, since patient had a ruptured aneurysm several years ago. Last seizure was sometime ago. Follows with Dr. Medina neurologist in [facility] Keppra 1500 mg by mouth twice a day Lamictal 50 mg twice a day -Chronic vertigo Will change [place] 7.5 to 5 mg 3 times daily. Will add scheduled potassium 20 mEq a day. Will change losartan to nightly. Patient received IV fluids in the ER. Discussed with patient Past Medical History Past Medical History: COPD, CVA/TIA, GERD/Reflux, Hyperlipidemia, Hypertension, Memory Impairment, Osteoarthritis (OA), Seizure Disorder Additional Past Medical History / Comment(s): 07/12/15 Pt woke this AM and accidentally took extra dose of her xanax. She normally takes 0.5mg xanax but by accident, took 2 tablets. After taking xanax, she couldn't stand up-had weakness in both legs. Pt has some weakness/clumsiness in L arm and L leg from old CVA. Family also noticed slurred speech this AM. Pt is being admitted with clinical impression of TIA and acute maxoid sinusitis. Other HX: 1988 [facility]-cerebral aneurysm rupture and R sided occipital lobe stoken leaving her with some L hand/arm and L leg/foot weakness, seizure disorder post forementioned with last and only grand mal seizure in 1988, pt does have episodes where she will stare off into space and get a funny taste in her mouth-uncertain if these are small seizures, chronic back pain with bulging discs to L3-L4, shingelles yrs ago. History of Any Multi-Drug Resistant Organisms: None Reported Past Surgical History: Hysterectomy, Tonsillectomy, Tubal Ligation Additional Past Surgical History / Comment(s): Aldo aneurysm clipping, sinus surgery, R carpal and R antecubital tunnel releases, 2 back injections for pain with last one done 03/14/15, hemorrhoidectomy, colonoscopy 2014 which was normal. Past Anesthesia/Blood Transfusion Reactions: No Reported Reaction Additional Past Anesthesia/Blood Transfusion Reaction / Comment(s): Pt states she has never received blood. Past Psychological History: Anxiety, Depression Smoking Status: Current every day smoker Past Alcohol Use History: None Reported Past Drug Use History: Marijuana - Past Family History Father Family Medical History: Cancer, COPD, Pneumonia Additional Family Medical History / Comment(s): Father had colon and lung cancer. He was a smoker. He of pneumonia at age 72 yrs. Mother Family Medical History: Vascular Disorder Additional Family Medical History / Comment(s): Mother has caratid artery dise ase- she is living and is 87yrs old. Medications and Allergies Home Medications Medication Instructions Recorded Confirmed Type Cyclobenzaprine [Flexeril] 5 mg PO HS@219907/12/15 06/02/24 History Losartan Potassium 50 mg PO DAILY@99907/12/15 06/02/24 History Omeprazole [PriLOSEC] 20 mg PO DAILY@99907/12/15 06/02/24 History Rosuvastatin [Crestor] 10 mg PO HS@219906/04/20 06/02/24 History levETIRAcetam [Keppra] 1,500 mg PO BID@999,219906/04/20 06/02/24 History Albuterol Sulfate [Ventolin HFA] 2 puff INHALATION RT-BID@999,219911/04/21 06/02/24 History FLUoxetine HCL [PROzac] 20 mg PO DAILY@1000 11/04/21 06/02/24 History Tiotropium 18 Mcg/Puff [Spiriva] 1 cap INHALATION RT-DAILY@1000 11/04/21 06/02/24 History Albuterol Inhaler [Ventolin Hfa 1 puff INHALATION RT-QID PRN #8 gm 11/07/21 06/02/24 Rx Inhaler] Chlorthalidone 25 mg PO DAILY #1 tab 11/12/21 06/02/24 Rx Gabapentin [Neurontin] 100 mg PO TID@1000,1400,2200 #9 cap 11/12/21 06/02/24 Rx HYDROcodone/APAP 7.5-325MG [[place] 1 tab PO BID #1 tab 11/12/21 06/02/24 Rx 7.5-325] lamoTRIgine [lamoTRIgine ODT] 50 mg PO BID@1000,2200 #12 tab 11/12/21 06/02/24 Rx lamoTRIgine [lamoTRIgine ODT] 200 mg PO BID@1000,2200 #4 tab 11/12/21 06/02/24 Rx Cholecalciferol [Vitamin D3 (25 25 mcg PO DAILY 06/02/24 06/02/24 History Mcg = 1000 Iu)] Naproxen [Naprosyn] 500 mg PO BID PRN 06/02/24 06/02/24 History oxyBUTYnin chloride [oxyBUTYnin 5 mg PO DAILY 06/02/24 06/02/24 History chloride ER] Allergies Allergy/AdvReac Type Severity Reaction Status Date / Time codeine Allergy Itching Verified 06/02/24 09:19 topiramate [From Topamax] Allergy Unknown Verified 06/02/24 09:19 Physical Exam Vitals: Vital Signs Temp Pulse Resp BP Pulse Ox 06/02/24 07:16 98.1 F 63 18 131/90 99 06/02/24 06:03 71 16 117/73 93 L 06/02/24 04:11 76 18 112/66 06/02/24 03:05 68 18 110/62 96 06/02/24 02:55 68 16 97/61 96 06/02/24 02:00 69 18 120/57 96 06/02/24 01:00 75 20 106/67 96 06/02/24 00:30 67 21 100/61 97 06/02/24 00:00 71 20 104/62 97 06/01/24 23:30 70 19 108/68 97 06/01/24 23:00 73 18 110/66 97 06/01/24 21:30 64 18 119/77 94 L 06/01/24 20:13 76 16 113/71 99 06/01/24 18:27 98.6 F 78 17 124/75 96 Intake and Output 06/01/24 06/02/24 06/02/24 22:59 06:59 14:59 Other: Weight 54.431 kg Results CBC & Chem 7: 06/02/24 07:00 06/02/24 07:00 Labs: Abnormal Lab Results - Last 24 Hours (Table) 06/01/24 06/01/24 06/01/24 Range/Units 19:11 19:11 19:15 APTT 21.6 L (22.0-30.0) sec Sodium 136 L (137-145) mmol/L Potassium 3.2 L (3.5-5.1) mmol/L Carbon Dioxide 31 H (22-30) mmol/L Glucose 112 H (74-99) mg/dL Urine Blood Trace H (Negative) Urine Nitrite Positive H (Negative) Ur Leukocyte Esterase Moderate H (Negative) Urine Bacteria Occasional H (None) /hpf 06/02/24 Range/Units 07:00 APTT (22.0-30.0) sec Sodium (137-145) mmol/L Potassium 3.1 L (3.5-5.1) mmol/L Carbon Dioxide 33 H (22-30) mmol/L Glucose (74-99) mg/dL Urine Blood (Negative) Urine Nitrite (Negative) Ur Leukocyte Esterase (Negative) Urine Bacteria (None) /hpf
[2024-06-02] MEDS: ATORVASTATIN 20 MG TAB PO SCH (20:21)
[2024-06-02] MEDS: CYCLOBENZAPRINE 5 MG TAB PO SCH (20:22)
[2024-06-03] MEDS ORDERED: Potassium Replacement Protocol 1 EACH MISC MISCELLANE PRN (09:33)
[2024-06-03] MEDS: CHOLECALCIFEROL 25 MCG (1000 IU) TABLET PO SCH (09:38)
[2024-06-03] MEDS: NICOTINE 21MG/24HR PATCH TRANSDERM SCH (09:39)
--- NOTE | 2024-06-03 11:02 | P.PN ---
Subjective Progress Note Date: 06/03/24 Interval History: Very pleasant 68 years old patient who presents, follows with Dr. Brennen Barragan. Extensive medical history to include COPD, GERD, hyperlipidemia, hypertension, some cognitive impairment, osteoarthritis, seizure disorder. 1988 did have cerebral aneurysm rupture with some right-sided occipital lobe stroke with some left and left arm left leg foot weakness. Had seizures several years ago. She has chronic back pain with herniated disc L3-L4. Does follow with neurologist pain management with Dr. Medina. Has been taking her medications for some time. Patient presented to ER yesterday evening. Patient by mistake took an extra dose of Xanax. Instead of 0.5 mg x 1 she took 2 tablets. She could not stand up and felt weakness in both legs. She has some chronic weakness and clumsiness in the left arm and left leg from prior stroke. Family felt she may have had a bit of slurred speech. Patient states she has been having falls. Does not feel sleepy. Does get dizzy lightheaded. None of her medications are new. Appetite is good. Does have chronic pain. No change in bowel pattern. 06/03/2024 Patient was seen and examined today. Patient was feeling better today. Patient reported that she feels weak and has frequent falls, weakness usually follows after she takes her medications, last for 2 hours. Patient is afebrile, heart rate 72, respiratory rate 18, blood pressure 123/73, saturating 93% on room air. No new labs from today. Awaiting psychiatry and neurology evaluation. Assessment and plan: Falls: Intermittent weakness after taking her medications: History of brain aneurysm: Residual left-sided weakness and peripheral visual loss -Patient is having frequent falls. Denies any sleepiness or drowsiness. Negative orthostatic. . Patient could be having drop attacks that could be from hypokalemia. Patient does take multiple medications. Will have them reviewed both by psychiatry and neurology. Telemetry Add scheduled potassium Fall precautions next PT/OT consult Neurology and psychiatry consulted -COPD in a current smoker Bronchodilators. -Chronic nicotine dependence, cigarette smoker Nicotine patch -GERD Prilosec 20 mg a day -Essential hypertension, losartan 50 mg a day, will change to nightly Chlorthalidone 25 mg a day -Primary osteoarthritis including 20 to disc L3-L4 [place] 7.5 twice a day at home. Will change to [place] 5 mg 3 times daily, Flexeril 5 mg daily at bedtime -Hyperlipidemia Crestor 10 mg daily at bedtime -Chronic urinary incontinence Oxybutynin 5 mg daily -Depression and anxiety Prozac 20 mg a -Seizure disorder, since patient had a ruptured aneurysm several years ago. Last seizure was sometime ago. Follows with Dr. Medina neurologist in [facility] Keppra 1500 mg by mouth twice a day Lamictal 50 mg twice a day -Chronic vertigo Will change [place] 7.5 to 5 mg 3 times daily. Will add scheduled potassium 20 mE q a day. Will change losartan to nightly. Patient received IV fluids in the ER. Discussed with patient DVT prophylaxis: Subcutaneous Lovenox Monitor vital signs and labs Labs and medication were reviewed. Continue same treatment. Further recommendations as per clinical course of the patient PHYSICAL EXAMINATION: GENERAL: The patient is A&O x3, NAD HEENT: EOMI, Sclerae anicteric, Moist Mucous membranes Neck: Supple, Non tender, No JVD PULMONARY: Equal breath souds B/L, No wheezing, No crackles. CARDIOVASCULAR: S1, S2 present. No murmurs, rubs, or gallops. ABDOMEN: Soft, nontender, nondistended, normoactive bowel sounds. No guarding or rebound tenderness. MUSCULOSKELETAL: No edema, No cyanosis. No clubbing. Normal ROM. Intact peripheral pulses. NEUROLOGICAL: CN 2-12 grossly intact. No FND Skin: No Rash REVIEW OF SYSTEMS: CONSTITUTIONAL: No fever or chills. CARDIOVASCULAR: No chest pain, palpitations or syncope. PULMONARY: No shortness of breath, no cough, sore throat. GASTROINTESTINAL: No nausea, vomiting, diarrhea, abdominal pain. : No Dysuria, urgency, frequency. Extremities: No edema. NEUROLOGICAL: No headaches, no weakness, or numbness Dictation was produced using [employer] dictation software. please excuse any grammatical, word or spelling errors. Objective - Vital Signs Vital signs: Vital Signs Temp 98.3 F 06/03/24 07:01 Pulse 72 06/03/24 08:29 Resp 18 06/03/24 07:01 BP 123/73 06/03/24 07:01 Pulse Ox 93 L 06/03/24 07:01 FiO2 Intake & Output 06/02/24 06/03/24 06/03/24 18:59 06:59 18:59 Intake Total 480 Balance 480 Weight 54.431 kg Intake: Oral 480 Other: # Voids 1 2 1 - Labs CBC & Chem 7: 06/02/24 07:00 06/02/24 07:00
--- NOTE | 2024-06-03 14:05 | P.CN ---
Psychiatric Consult - . Consult date: 06/03/24 Consult:: 06/03/24 13:59 IDENTIFYING DATA: This patient is a 68-year-old female, living alone on disability REASON FOR REFERRAL: Psychiatry was consulted for depression and anxiety, that evaluation HISTORY OF PRESENT ILLNESS: The patient presented to the hospital with weakness. Patient reports she has been experiencing dizzy spells along with weakness for a while now. She reports a remote history of depression and reports she has been on Prozac for 22 years, prescribed by her PCP. She reports overall stability in her mood, only reporting low energy. She has a history of seizures however reports her last seizure was in 2021. She denied any anxiety. She has remote history of using Xanax however this was discontinued when she was started on a muscle relaxant per patient. She reports neuropathic pain with improvements with gabapentin. At this time patient denies any suicidal or homical ideations, intent or plan. Patient denies any auditory, visual hallucinations and denies any paranoia or delusions. Patients admits to using tobacco, smoking over 1 pack a day. PAST PSYCHIATRIC HISTORY: Patient has a a history of depression/anxiety. She is currently on Prozac 20 mg daily. Patient denies any previous psychiatric hospitalizations. Patient denies any psychiatric outpatient follow-up. Patient denies any history of suicide attempts in the past. PAST MEDICAL HISTORY: COPD, CVA, dyslipidemia, hypertension, memory impairment, osteoarthritis, seizure disorder. ALLERGIES: as per EMR. CHEMICAL DEPENDENCY HISTORY: as per HPI. FAMILY PSYCHIATRIC/SUBSTANCE USE HISTORY: Denies SOCIAL HISTORY: Patient has 2 grown sons and lives alone. She is on SSD. She completed high school. MENTAL STATUS EXAM: General Appearance: Patient appears to be stated age is alert, pleasant, and cooperative. Patient appears to have fair hygiene and grooming wearing hospital gown with fair eye contact. Behavior: Patient is calmly lying in bed without any agitated behavior. Speech: Patient's speech is fluent and nonpressured. Mood/Affect: Patient reports their mood is "fine", affect is congruent Suicidality/Homicidality: Patient denies having any suicidal or homicidal ideation intent or plan. Perceptions: Patient denies any visual hallucinations and denies any auditory hallucinations Though content/process: There is no evidence of any delusional thought content and thought process is linear and goal-directed. Memory and concentration: AOX3, grossly intact for the purposes of this session. Can spell "WORLD" backwards Judgment and insight: Fair IMPRESSIONS: History of depression History of anxiety Nicotine dependence PLAN: -At this time patient DOES NOT meet criteria for inpatient psychiatric admission. -Would recommend the following medication changes/additions: Discontinue Prozac 20 mg daily and start duloxetine 30 mg daily for depression/anxiety and neuropathic pain -group care worker to provide patient with outpatient mental health/psychiatry resources for appropriate follow up upon discharge -Communicated plan to patient's nurse -Will continue to follow along -Please contact with any questions.
[2024-06-03] MEDS: LOSARTAN 50 MG TAB PO SCH (20:49)
[2024-06-03] MEDS: lamoTRIgine 25 MG TAB PO SCH (20:50)
[2024-06-03] MEDS: ALBUTEROL NEBULIZED 2.5 MG/3 ML INHALATION PRN (23:29)
--- NOTE | 2024-06-04 02:38 | P.CNNES ---
History of Present Illness Consult date: 06/03/24 Requesting physician: Jameson Hagan Reason for Consult: Evaluate AEDs History of Present Illness: Patient is a 68-year-old right-handed with history of female cerebral aneurysm, status post clipping, possible seizure disorder, came to the hospital by ambulance 2 days ago, 06/01/2024 at 6:26 PM for dizziness, syncopal spell. Patient states that she was on her bed, was going to the bathroom, could not walk and was very wobbly has to hold onto stuff. She got back to her bed. Then she wanted to go to kitchen to eat. She does have walker with wheels. After she ate Cheetos, when she was trying to get back to her bed, she started losing balance, and got down on the floor and laid there. It took almost couple hours for her to gather her strength and crawled to the cell phone and called EMS. Patient does not believe it was a seizure. Patient has these spells once every 2 or 3 months when she starts being very wobbly, goes down on the floor, but does not fall, but she still falls over while she is sitting. She stays on the floor for couple hours and then she is fine afterwards. She gets episodes of dizziness. Patient has history of seizure disorder, and the first seizure occurred when she was diagnosed with ruptured cerebral aneurysm in 1988. She underwent aneurysmal clipping, had residual deficits with left homonymous hemianopia and slight weakness of the left side. Patient had a seizure "years ago when she was looking in the computer and had a small seizure. She had a seizure in 2001 when she was sitting in the wheelchair, and her body clenched up in a seizure. She had another seizure in 2021 when she noticed that she was beating her head on the floor. In general, she had just a few seizures in her lifetime. She follows up with Dr. Khan. As per EMS flowsheet it was reported patient had weakness who cannot get up from floor. Patient was found on the kitchen floor. Patient did not fall. Patient denied pain. Patient states she is taking a new medication that is affecting her ability to stand and walk. Symptoms started around 4 PM. Patient felt like she is going to pass out. Stroke assessment was negative. Patient's vitals were blood pressure 115/75, pulse at 83, saturation 93%, glucose 117. CBC PT PTT normal. Sodium 136 potassium 3.2, hepatic panel is normal troponin negative. UA shows positive nitrite, moderate leukocyte esterase. Lamictal level 13.3. Patient had an EEG performed 11/08/2021, which was normal. No epileptiform activity was seen. Patient was seen by Dr. Harris at that time for generalized weakness, dizziness. Rule out seizures specially with history of seizures. Patient has acute on chronic vertigo. Patient has history of brain aneurysm status post clipping in 1988. Patient has history of smoking 1 pack/day since age 17 for 50 years,. Review of Systems All pertinent positive and negative review of systems mentioned in HPI, otherwise unremarkable. Past Medical History Past Medical History: COPD, CVA/TIA, GERD/Reflux, Hyperlipidemia, Hypertension, Memory Impairment, Osteoarthritis (OA), Seizure Disorder Additional Past Medical History / Comment(s): 07/12/15 Pt woke this AM and accidentally took extra dose of her xanax. She normally takes 0.5mg xanax but by accident, took 2 tablets. After taking xanax, she couldn't stand up-had weakness in both legs. Pt has some weakness/clumsiness in L arm and L leg from old CVA. Family also noticed slurred speech this AM. Pt is being admitted with clinical impression of TIA and acute maxoid sinusitis. 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 History of Any Multi-Drug Resistant Organisms: None Reported Past Surgical History: Hysterectomy, Tonsillectomy, Tubal Ligation Additional Past Surgical History / Comment(s): Aldo aneurysm clipping, sinus surgery, R carpal and R antecubital tunnel releases, 2 back injections for pain with last one done 03/14/15, hemorrhoidectomy, colonoscopy 2014 which was normal. Past Anesthesia/Blood Transfusion Reactions: No Reported Reaction Additional Past Anesthesia/Blood Transfusion Reaction / Comment(s): Pt states sh e has never received blood. Past Psychological History: Anxiety, Depression Smoking Status: Current every day smoker Past Alcohol Use History: None Reported Past Drug Use History: Marijuana - Past Family History Father Family Medical History: Cancer, COPD, Pneumonia Additional Family Medical History / Comment(s): Father had colon and lung cancer. He was a smoker. He of pneumonia at age 72 yrs. Mother Family Medical History: Vascular Disorder Additional Family Medical History / Comment(s): Mother has caratid artery disease- she is living and is 87yrs old. Medications and Allergies Home Medications Medication Instructions Recorded Confirmed Type Cyclobenzaprine [Flexeril] 5 mg PO HS@2200 07/12/06/02/24 History Losartan Potassium 50 mg PO DAILY@1000 07/12/15 06/02/24 History Omeprazole [PriLOSEC] 20 mg PO DAILY@1000 07/12/15 06/02/24 History Rosuvastatin [Crestor] 10 mg PO HS@2200 06/04/20 06/02/24 History levETIRAcetam [Keppra] 1,500 mg PO BID@1000,0 06/04/20 06/02/24 History Albuterol Sulfate [Ventolin HFA] 2 puff INHALATION RT-BID@1000,2200 11/04/21 06/02/24 History FLUoxetine HCL [PROzac] 20 mg PO DAILY@1000 11/04/21 06/02/24 History Tiotropium 18 Mcg/Puff [Spiriva] 1 cap INHALATION RT-DAILY@1000 11/04/21 06/02/24 History Albuterol Inhaler [Ventolin Hfa 1 puff INHALATION RT-QID PRN #8 gm 11/07/21 06/02/24 Rx Inhaler] Chlorthalidone 25 mg PO DAILY #1 tab 11/12/21 06/02/24 Rx Gabapentin [Neurontin] 100 mg PO TID@1000,1400,2200 #9 cap 11/12/21 06/02/24 Rx HYDROcodone/APAP 7.5-325MG [[place] 1 tab PO BID #1 tab 11/12/21 06/02/24 Rx 7.5-325] lamoTRIgine [lamoTRIgine ODT] 50 mg PO BID@1000,2200 #12 tab 11/12/21 06/02/24 Rx lamoTRIgine [lamoTRIgine ODT] 200 mg PO BID@1000,2200 #4 tab 11/12/21 06/02/24 Rx Cholecalciferol [Vitamin D3 (25 25 mcg PO DAILY 06/02/24 06/02/24 History Mcg = 1000 Iu)] Naproxen [Naprosyn] 500 mg PO BID PRN 06/02/24 06/02/24 History oxyBUTYnin chloride [oxyBUTYnin 5 mg PO DAILY 06/02/24 06/02/24 History chloride ER] Allergies Allergy/AdvReac Type Severity Reaction Status Date / Time codeine Allergy Itching Verified 06/02/24 09:19 topiramate [From Topamax] Allergy Unknown Verified 06/02/24 09:19 Physical Examination - Vital Signs Vital Signs: Vital Signs Temp Pulse Pulse Pulse Pulse Pulse Pulse 06/03/24 13:23 98.6 F 75 06/03/24 12:17 76 06/03/24 12:09 74 06/03/24 08:29 72 06/03/24 08:21 70 06/03/24 07:01 98.3 F 79 06/03/24 01:33 98.6 F 64 06/03/24 01:14 66 66 80 65 06/02/24 20:21 66 06/02/24 20:02 69 06/02/24 19:55 66 06/02/24 19:48 97.9 F 66 06/02/24 15:42 66 06/02/24 15:36 66 06/02/24 15:26 66 80 65 06/02/24 14:56 97.9 F 70 Resp BP BP BP BP Pulse Ox 06/03/24 13:23 18 102/62 92 L 06/03/24 12:17 06/03/24 12:09 06/03/24 08:29 06/03/24 08:21 06/03/24 07:01 18 123/73 93 L 06/03/24 01:33 16 121/62 97 06/03/24 01:14 16 06/02/24 20:21 16 06/02/24 20:02 06/02/24 19:55 06/02/24 19:48 16 129/77 100 06/02/24 15:42 16 06/02/24 15:36 16 06/02/24 15:26 132/83 126/81 127/80 06/02/24 14:56 17 148/75 95 Intake and Output 06/02/24 06/03/24 06/03/24 22:59 06:59 14:59 Intake Total 0 358 Balance 0 358 Intake: Oral 0 358 Other: # Voids 2 2 1 Patient is an elderly female, very pleasant, in no acute distress. Patient is alert awake oriented to time place and person. Speech and language functions are normal. Patient can name and repeat very well. No aphasia or dysarthria. Attention, concentration and fund of knowledge is adequate. On cranial nerve examination, pupils are equal, round and reacting to light, visual kendrick revealed left homonymous hemianopia. Extraocular muscles are intact with no nystagmus. Face is symmetric, tongue protrudes to the midline. Palatal elevation and sensation normal, hearing and shoulder shrug normal, facial sensation normal. On muscle strength testing, there is left sided pronation, no drift and the strength is normal in arms and legs distally and proximally, except right shoulder which is weak and painful from arthritis. In the lower limbs, her ankle dorsiflexion is 5 on the right, 5-left, and hip flexion are 5 bilaterally. Deep tendon reflexes are (right/left) biceps 1+/1+, brachioradialis 1+/1+, knees 3/2+, plantars are downgoing bilaterally. Sensory to touch is equal with no neglect on double simultaneous stimulation. Cerebellar function showed no ataxia for aiskis-sk-cosd testing, although she was tremulous bilaterally. No ataxia for ocop-ov-leux testing on either side. Tone and bulk of muscles normal. Gait patient walked, but appeared slightly unsteady. She did not use any assistive device. On general examination, there is no carotid bruit or murmur, S1-S2 audible. Chest is clear on consultation. Abdomen is soft nontender. No organomegaly, bowel sounds present. Peripheral pulses are present. No peripheral edema. Results - Laboratory Findings CBC and BMP: 06/02/24 07:00 06/02/24 07:00 Abnormal Lab Findings: Abnormal Labs 06/01/24 06/01/24 06/01/24 19:11 19:11 19:15 APTT 21.6 L Sodium 136 L Potassium 3.2 L Carbon Dioxide 31 H Glucose 112 H Urine Blood Trace H Urine Nitrite Positive H Ur Leukocyte Esterase Moderate H Urine Bacteria Occasional H 06/02/24 07:00 APTT Sodium Potassium 3.1 L Carbon Dioxide 33 H Glucose Urine Blood Urine Nitrite Ur Leukocyte Esterase Urine Bacteria Assessment and Plan Assessment: * Frequent falls, likely due to medication side effect. * History of ruptured cerebral aneurysm 1988, with subsequent left homonymous hemianopia and mild left-sided weakness. * Seizure disorder, due to above. Patient had only occasional seizures in her lifetime. Well-controlled on medication. * Intermittent episodes of dizziness, imbalance, and falls, likely due to medication side effect * Hypertension * Hyperlipidemia * Anxiety and depression * Tobacco use Plan: * Patient is on very high dose of Lamictal 250 mg twice daily. Her Lamictal level is on upper limits of normal 13.3 (2-15). We will decrease Lamictal to 225 mg twice daily. * Continue same dose of Keppra 1500 mg twice daily for now. Patient also on gabapentin 100 mg 3 times daily. * Neurologically clear, recommend follow-up with neurologist outpatient. May have to further decrease the dose of Lamictal to 200 mg twice daily, if she continues to have dizziness and other side effects. * We will check B12, folate, TSH because of imbalance. Patient has abnormal UA, we will defer to IM. * Recommend complete tobacco cessation. * Dr. Matias covering neurology service for any other concerns. Thank you for the consult. Time with Patient: Greater than 30
[2024-06-04] MEDS: DULoxetine HCL 30 MG CAPSULE.DR PO SCH (09:11)
[2024-06-04 09:53] LABS: Basophils # (A) 0.05 X 10*3/uL (0.00-0.10); Basophils % (A) 0.7 %; Eosinophils # (A) 0.01 X 10*3/uL (0.04-0.35); Eosinophils % (A) 0.1 %; HCT 38.2 % (37.2-46.3); HGB 12.6 g/dL (12.0-15.0); Lymphocytes # (A) 2.55 X 10*3/uL (0.90-5.00); Lymphocytes % (A) 36.7 %; Mean Platelet Volume 9.2 FL (9.5-12.2); Monocytes # (A) 0.85 X 10*3/uL (0.20-1.00); Monocytes % (A) 12.2 %; NRBC Per 100 WBC 0 X 10*3/uL (0.00-0.01); Neutrophils # (A) 3.46 X 10*3/uL (1.80-7.70); Platelet Count 370 X 10*3/uL (140-440); RDW 12.7 % (11.5-14.5); WBC 6.94 X 10*3/uL (4.50-10.00)
[2024-06-04 10:09] LABS: BUN/Creat Ratio 20.17 Ratio (12.00-20.00); Blood Urea Nitrogen 12.1 mg/dL (9.0-27.0); Calcium 9.2 mg/dL (8.7-10.3); Carbon Dioxide 26.4 mmol/L (21.6-31.8); Chloride 101 mmol/L (96-109); Glucose 85 mg/dL (70-110); Potassium 4.3 mmol/L (3.5-5.5); Sodium 139 mmol/L (135-145)
--- NOTE | 2024-06-04 15:39 | P.CRDCN ---
History of Present Illness Consult date: 06/04/24 History of present illness: History of Present Illness: The patient is a 68-year-old female with known history of seizure, status post cerebral aneurysm clipping, chronic tobacco use who presents to the hospital with recurrent episodes of dizziness, falling but no syncope. She has been having this issue for a while. She has been followed by Dr. Reynolds. She denies any history of cardiac disease, she denies any palpitation. She denies any chest discomfort. She has dyspnea on exertion related to her smoking. She has no peripheral edema, no PND or orthopnea. She has been in sinus mechanism since her admission. She carries the diagnosis of seizure disorder. Cardiology consultation was requested because of the dizziness. Patient denies any recent cardiac workup but has no history of CHF or acute HI. She has a history of hypertension and hyperlipidemia. Medications: Naprosyn, Keppra, Crestor 10 mg daily, Prilosec, Neurontin, Prozac, chlorthalidone 25 mg daily, Flexeril, Ventolin Review of Systems: Respiratory: She has dyspnea on exertion and history of obstructive lung disease GI: No nausea or vomiting . No history of peptic ulcer disease. No recent GI bleed. : No hematuria or dysuria. Nervous System: She has a history of seizure and prior cerebral aneurysm Physical Examination: 68-year-old female, alert oriented no apparent distress,Blood pressure 140/80, Heart rate 70 Head: Normocephalic. Eyes: Sclerae nonicteric. Neck: Good carotid upstroke, no bruit, no jugular venous distention. Lungs: Decreased air exchange but no wheezes Heart: Regular rate and rhythm, S1-S2, no S3, no rub. Systolic ejection murmur. Abdomen: Soft nontender, positive bowel sounds no organomegaly. Extremities: No edema, intact distal pulses. Labs: Hemoglobin 12.6, potassium 4.3, BUN 12.1, creatinine 0.6. Troponin less than 0.012. EKG: Sinus mechanism with nonspecific ST-T wave changes QS in V1 and V2 Impression: 1. Symptoms of dizziness, no evidence of cardiac etiology, no evidence of arrhythmia 2. Chronic tobacco use 3. History of hyperlipidemia 4. History of seizure disorder Plan: 1. Continue telemetry 2. Obtain an echocardiogram with Doppler 3. If there is no segmental wall motion abnormality no further cardiac workup will be needed 4. Thank you for this consult we will follow with you Past Medical History Past Medical History: COPD, CVA/TIA, GERD/Reflux, Hyperlipidemia, Hypertension, Memory Impairment, Osteoarthritis (OA), Seizure Disorder Additional Past Medical History / Comment(s): 07/12/15 Pt woke this AM and accidentally took extra dose of her xanax. She normally takes 0.5mg xanax but by accident, took 2 tablets. After taking xanax, she couldn't stand up-had weakness in both legs. Pt has some weakness/clumsiness in L arm and L leg from old CVA. Family also noticed slurred speech this AM. Pt is being admitted with clinical impression of TIA and acute maxoid sinusitis. 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 History of Any Multi-Drug Resistant Organisms: None Reported Past Surgical History: Hysterectomy, Tonsillectomy, Tubal Ligation Additional Past Surgical History / Comment(s): Aldo aneurysm clipping, sinus surgery, R carpal and R antecubital tunnel releases, 2 back injections for pain with last one done 03/14/15, hemorrhoidectomy, colonoscopy 2014 which was normal. Past Anesthesia/Blood Transfusion Reactions: No Reported Reaction Additional Past Anesthesia/Blood Transfusion Reaction / Comment(s): Pt states she has never received blood. Past Psychological History: Anxiety, Depression Smoking Status: Current every day smoker Past Alcohol Use History: None Reported Past Drug Use History: Marijuana - Past Family History Father Family Medical History: Cancer, COPD, Pneumonia Additional Family Medical History / Comment(s): Father had colon and lung cancer. He was a smoker. He of pneumonia at age 72 yrs. Mother Family Medical History: Vascular Disorder Additional Family Medical History / Comment(s): Mother has caratid artery disease- she is living and is 87yrs old. Medications and Allergies Home Medications Medication Instructions Recorded Confirmed Type Cyclobenzaprine [Flexeril] 5 mg PO HS@2200 07/12/15 06/02/24 History Losartan Potassium 50 mg PO DAILY@1000 07/12/15 06/02/24 History Omeprazole [PriLOSEC] 20 mg PO DAILY@1000 07/12/15 06/02/24 History Rosuvastatin [Crestor] 10 mg PO HS@2200 06/04/20 06/02/24 History levETIRAcetam [Keppra] 1,500 mg PO BID@1000,2200 06/04/20 06/02/24 History Albuterol Sulfate [Ventolin HFA] 2 puff INHALATION RT-BID@1000,2200 11/04/21 06/02/24 History FLUoxetine HCL [PROzac] 20 mg PO DAILY@1000 11/04/21 06/02/24 History Tiotropium 18 Mcg/Puff [Spiriva] 1 cap INHALATION RT-DAILY@1000 11/04/21 06/02/24 History Albuterol Inhaler [Ventolin Hfa 1 puff INHALATION RT-QID PRN #8 gm 11/07/21 06/02/24 Rx Inhaler] Chlorthalidone 25 mg PO DAILY #1 tab 11/12/21 06/02/24 Rx Gabapentin [Neurontin] 100 mg PO TID@1000,1400,2200 #9 cap 11/12/21 06/02/24 Rx HYDROcodone/APAP 7.5-325MG [Hilo 1 tab PO BID #1 tab 11/12/21 06/02/24 Rx 7.5-325] lamoTRIgine [lamoTRIgine ODT] 50 mg PO BID@1000,2200 #12 tab 11/12/21 06/02/24 Rx lamoTRIgine [lamoTRIgine ODT] 200 mg PO BID@1000,2200 #4 tab 11/12/21 06/02/24 Rx Cholecalciferol [Vitamin D3 (25 25 mcg PO DAILY 06/02/24 06/02/24 History Mcg = 1000 Iu)] Naproxen [Naprosyn] 500 mg PO BID PRN 06/02/24 06/02/24 History oxyBUTYnin chloride [oxyBUTYnin 5 mg PO DAILY 06/02/24 06/02/24 History chloride ER] Allergies Allergy/AdvReac Type Severity Reaction Status Date / Time codeine Allergy Itching Verified 06/02/24 09:19 topiramate [From Topamax] Allergy Unknown Verified 06/02/24 09:19 Physical Exam Vitals: Vital Signs Temp Pulse Pulse Resp BP Pulse Ox 06/04/24 13:38 98.3 F 82 18 101/67 91 L 06/04/24 11:59 76 06/04/24 11:48 76 06/04/24 08:14 76 06/04/24 08:00 76 06/04/24 07:05 97.3 F L 76 18 146/89 93 L 06/04/24 02:00 98.5 F 72 18 144/80 92 L 06/03/24 23:38 78 06/03/24 23:30 74 06/03/24 20:55 74 18 06/03/24 20:00 98.2 F 74 18 138/89 93 L 06/03/24 16:02 75 06/03/24 15:55 71 Intake and Output 06/04/24 06/04/24 06/04/24 06:59 14:59 22:59 Intake Total 476 Balance 476 Intake: Oral 476 Other: # Voids 2 2 Results 06/04/24 03:20 06/04/24 03:20 CBC 06/04/24 Range/Units 03:20 WBC 6.94 (4.50-10.00) X 10*3/uL RBC 4.20 (4.10-5.20) X 10*6/uL Hgb 12.6 (12.0-15.0) g/dL Hct 38.2 (37.2-46.3) % Plt Count 370 (140-440) X 10*3/uL Comprehensive Metabolic Panel 06/04/24 Range/Units 03:20 Sodium 139 (135-145) mmol/L Potassium 4.3 (3.5-5.5) mmol/L Chloride 101 (96-109) mmol/L Carbon Dioxide 26.4 (21.6-31.8) mmol/L BUN 12.1 (9.0-27.0) mg/dL Creatinine 0.6 (0.6-1.5) mg/dL Glucose 85 (70-110) mg/dL Calcium 9.2 (8.7-10.3) mg/dL Current Medications Generic Name Dose Route Start Last Admin Trade Name Freq PRN Reason Stop Dose Admin Acetaminophen 650 mg 06/01/24 21:15 Acetaminophen Tab 325 Mg Tab PO Q6HR PRN Mild Pain or Fever > 100.5 Hydrocodone Bitart/Acetaminophen 1 each 06/02/24 10:15 06/04/24 09:11 Hydrocodone/Apap 7.5-325mg 1 Each Tab PO 1 each BID BRIAN Administration Albuterol Sulfate 2.5 mg 06/02/24 10:05 06/03/24 23:29 Albuterol Nebulized 2.5 Mg/3 Ml INHALATION 2.5 mg RT-QID PRN Administration Shortness Of Breath Albuterol Sulfate 2.5 mg 06/02/24 10:05 06/04/24 08:00 Albuterol Nebulized 2.5 Mg/3 Ml INHALATION 2.5 mg RT-BID@1000,2200 BRIAN Administration Atorvastatin Calcium 20 mg 06/02/24 22:00 06/03/24 20:49 Atorvastatin 20 Mg Tab PO 20 mg HS@2200 BRIAN Administration Cholecalciferol 25 mcg 06/03/24 09:00 06/04/24 09:11 Cholecalciferol 25 Mcg (1000 Iu) Tablet PO 25 mcg DAILY [facility] Administration Cyclobenzaprine HCl 5 mg 06/02/24 22:00 06/03/24 20:49 Cyclobenzaprine 5 Mg Tab PO 5 mg HS@2200 BRIAN Administration Duloxetine HCl 30 mg 06/04/24 09:00 06/04/24 09:11 Duloxetine Hcl 30 Mg Capsule.Dr PO 30 mg DAILY [facility] Administration Enoxaparin Sodium 40 mg 06/02/24 10:15 06/04/24 09:17 Enoxaparin 40 Mg/0.4 Ml Syringe SQ Not Given DAILY [facility] Gabapentin 100 mg 06/02/24 14:00 06/04/24 09:11 Gabapentin 100 Mg Cap PO 100 mg TID@1000,1400,2200 BRIAN Administration Ipratropium [place] 0.5 mg 06/02/24 10:00 06/04/24 11:48 Ipratropium 0.5 Mg/2.5 Ml Nebu INHALATION 0.5 mg RT-QID BRIAN Administration Lamotrigine 200 mg 06/02/24 10:05 06/04/24 09:11 Lamotrigine 100 Mg Tab PO 200 mg BID@1000,2200 BRIAN Administration Lamotrigine 25 mg 06/03/24 22:00 06/04/24 09:10 Lamotrigine 25 Mg Tab PO 25 mg BID@1000,2200 BRIAN Administration Levetiracetam 1,500 mg 06/02/24 10:05 06/04/24 09:10 Levetiracetam 750 Mg Tab PO 1,500 mg BID@1000,2200 BRIAN Administration Losartan Potassium 50 mg 06/03/24 21:00 06/03/24 20:49 Losartan 50 Mg Tab PO 50 mg HS BRIAN Administration Miscellaneous Information 1 each 06/03/24 09:33 Potassium Replacement Protocol 1 Each Misc MISCELLANE DAILY PRN Per Protocol Protocol Naloxone HCl 0.2 mg 06/01/24 21:15 Naloxone 0.4 Mg/Ml 1 Ml Vial IV Q2M PRN Opioid Reversal Naproxen 500 mg 06/02/24 10:05 Naproxen 250 Mg Tab PO BID PRN Pain Nicotine 1 patch 06/03/24 09:00 06/04/24 09:16 Nicotine 21mg/24hr Patch TRANSDERM 1 patch DAILY BRIAN Administration Oxybutynin Chloride 5 mg 06/02/24 10:15 06/04/24 09:11 Oxybutynin Xl 5 Mg Tab.Er.24 PO 5 mg DAILY BRIAN Administration Pantoprazole Sodium 40 mg 06/02/24 10:00 06/04/24 09:11 Pantoprazole 40 Mg Tablet PO 40 mg DAILY@1000 BRIAN Administration Intake and Output 06/04/24 06/04/24 06/04/24 06:59 14:59 22:59 Intake Total 476 Balance 476 Intake: Oral 476 Other: # Voids 2 2 06/04/24 03:20 06/04/24 03:20
--- NOTE | 2024-06-04 17:36 | P.PN ---
Subjective Very pleasant 68 years old patient who presents, follows with Dr. Brennen Barragan. Extensive medical history to include COPD, GERD, hyperlipidemia, hypertension, some cognitive impairment, osteoarthritis, seizure disorder. 1988 did have cerebral aneurysm rupture with some right-sided occipital lobe stroke with some left and left arm left leg foot weakness. Had seizures several years ago. She has chronic back pain with herniated disc L3-L4. Does follow with neurologist pain management with Dr. Medina. Has been taking her medications for some time. Patient presented to ER yesterday evening. Patient by mistake took an extra dose of Xanax. Instead of 0.5 mg x 1 she took 2 tablets. She could not stand up and felt weakness in both legs. She has some chronic weakness and clumsiness in the left arm and left leg from prior stroke. Family felt she may have had a bit of slurred speech. Patient states she has been having falls. Does not feel sleepy. Does get dizzy lightheaded. None of her medications are new. Appetite is good. Does have chronic pain. No change in bowel pattern. 06/03/2024 Patient was seen and examined today. Patient was feeling better today. Patient reported that she feels weak and has frequent falls, weakness usually follows after she takes her medications, last for 2 hours. Patient is afebrile, heart rate 72, respiratory rate 18, blood pressure 123/73, saturating 93% on room air. No new labs from today. Awaiting psychiatry and neurology evaluation. 06/04/2024 Patient was feeling dizzy on admission for 2.5 hours At that time could not walk No chest pain or dyspnea Patient reports similar episode happens every 2 months, therefore recommend peanut roaster evaluation If she remains stable and improving possible discharge in 24 to 48 hours Objective - Vital Signs Vital signs: Vital Signs Temp 97.3 F L 06/04/24 07:05 Pulse 76 06/04/24 08:14 Resp 18 06/04/24 07:05 BP 146/89 06/04/24 07:05 Pulse Ox 93 L 06/04/24 07:05 FiO2 Intake & Output 06/03/24 06/04/24 06/04/24 18:59 06:59 18:59 Intake Total 358 360 358 Balance 358 360 358 Intake: Oral 358 360 358 Other: # Voids 2 2 - Exam GENERAL: The patient is alert and oriented x3, not in any acute distress. Well developed, well nourished. HEENT: Pupils are round and equally reacting to light. EOMI. No scleral icterus. No conjunctival pallor. Normocephalic, atraumatic. No pharyngeal erythema. No thyromegaly. CARDIOVASCULAR: S1 and S2 present. No murmurs, rubs, or gallops. PULMONARY: Chest is clear to auscultation, no wheezing , no crackles. ABDOMEN: Soft, nontender, nondistended, normoactive bowel sounds. No palpable organomegaly. MUSCULOSKELETAL: No joint swelling or deformity. EXTREMITIES: No cyanosis, clubbing, or pedal edema. NEUROLOGICAL: Gross neurological examination did not reveal any focal deficits. SKIN: No rashes. no petechiae. - Labs CBC & Chem 7: 06/04/24 03:20 06/04/24 03:20 Labs: Abnormal Lab Results - Last 24 Hours (Table) 06/04/24 06/04/24 Range/Units 03:20 03:20 MPV 9.2 L (9.5-12.2) FL Eosinophils # 0.01 L (0.04-0.35) X 10*3/uL BUN/Creatinine Ratio 20.17 H (12.00-20.00) Ratio Assessment and Plan Assessment: Falls: Recurrent dizziness, rule out cardiac causes Intermittent weakness after taking her medications: History of brain aneurysm: Residual left-sided weakness and peripheral visual loss -Patient is having frequent falls. Denies any sleepiness or drowsiness. Negative orthostatic. . Patient could be having drop attacks that could be from hypokalemia. Patient does take multiple medications. Will have them reviewed both by psychiatry and neurology. Telemetry Add scheduled potassium Fall precautions next PT/OT consult Neurology and psychiatry consulted -COPD in a current smoker Bronchodilators. -Chronic nicotine dependence, cigarette smoker Nicotine patch -GERD Prilosec 20 mg a day -Essential hypertension, losartan 50 mg a day, will change to nightly Chlorthalidone 25 mg a day -Primary osteoarthritis including 20 to disc L3-L4 [place] 7.5 twice a day at home. Will change to [place] 5 mg 3 times daily, Flexeril 5 mg daily at bedtime -Hyperlipidemia Crestor 10 mg daily at bedtime -Chronic urinary incontinence Oxybutynin 5 mg daily -Depression and anxiety Prozac 20 mg a -Seizure disorder, since patient had a ruptured aneurysm several years ago. Last seizure was sometime ago. Follows with Dr. Medina neurologist in [facility] Keppra 1500 mg by mouth twice a day Lamictal 50 mg twice a day -Chronic vertigo Will change [place] 7.5 to 5 mg 3 times daily. Will add scheduled potassium 20 mEq a day. Will change losartan to nightly. Patient received IV fluids in the ER. Discussed with patient DVT prophylaxis: Subcutaneous Lovenox
[2024-06-04] MEDS: MELATONIN 5 MG TABLET PO SCH (21:04)
--- NOTE | 2024-06-05 12:04 | CA ---
Transthoracic Echo Report Name: Marion Alcantara Age: 68 Gender: F : 1955 Exam Date: 06/05/2024 09:25 Exam Location: [place] [facility] Ht (in): 60 Wt (lb): 120 Ordering Physician: Jeanette Bennett MD ([id number]) Attending/Referring Phys: Salvage Repairer Clare Dobbs RDCS Procedure CPT: Indications: dizziness Cardiac Hx: smoker Technical Quality: Contrast 1: Total Dose (mL): Contrast 2: Total Dose (mL): MEASUREMENTS (Male / Female) Normal Values 2D ECHO LV Diastolic Diameter PLAX 4.3 cm 4.2 - 5.9 / 3.9 - 5.3 cm LV Systolic Diameter PLAX 2.8 cm IVS Diastolic Thickness 1.2 cm 0.6 - 1.0 / 0.6 - 0.9 cm LVPW Diastolic Thickness 1.2 cm 0.6 - 1.0 / 0.6 - 0.9 cm LV Relative Wall Thickness 0.6 RV Internal Dim ED PLAX 3.2 cm LA Systolic Diameter LX 3.2 cm 3.0 - 4.0 / 2.7 - 3.8 cm LV Diastolic Volume MOD 4C 60.4 cm??? LV Systolic Volume MOD 4C 27.8 cm??? LV Ejection Fraction MOD 4C 53.9 % LV Cardiac Index MOD 4C 1662.0 cm???/min???m??? LV Diastolic Length 4C 7.6 cm LV Systolic Length 4C 6.4 cm LV Diastolic Volume MOD 2C 64.3 cm??? LV Systolic Volume MOD 2C 19.3 cm??? LV Ejection Fraction MOD 2C 70.0 % LV Cardiac Index MOD 2C 2300.1 cm???/min???m??? LV Diastolic Length 2C 8.4 cm LV Systolic Length 2C 7.0 cm M-MODE Aortic Root Diameter MM 3.3 cm LA Systolic Diameter MM 2.3 cm LA Ao Ratio MM 0.7 DOPPLER AV Peak Velocity 175.0 cm/s AV Peak Gradient 12.2 mmHg Mitral E Point Velocity 79.7 cm/s Mitral A Point Velocity 129.2 cm/s Mitral E to A Ratio 0.6 MV Deceleration Time 417.3 ms MV E' Velocity 5.0 cm/s Mitral E to MV E' Ratio 16.0 FINDINGS Left Ventricle Left ventricular ejection fraction is estimated at 55-60 %. Normal left ventricular systolic function with no obvious regional wall motion abnormalities. Left ventricular cavity size normal. Right Ventricle Normal right ventricular size and function. Unable to estimate the right ventricular systolic pressure. Right Atrium Normal right atrial size. No right atrial thrombus or mass seen. Left Atrium Normal left atrial size. No left atrial thrombus or mass present. Mitral Valve Structurally normal mitral valve. No mitral stenosis, regurgitation or prolapse. Aortic Valve Trileaflet aortic valve. No aortic valve stenosis or regurgitation. Tricuspid Valve Structurally normal tricuspid valve. No tricuspid stenosis, regurgitation or prolapse. Pulmonic Valve Structurally normal pulmonic valve. No pulmonic regurgitation. Pericardium No pericardial or pleural effusion. Aorta Normal size aortic root and proximal ascending aorta. CONCLUSIONS 1. Normal left ventricular size and systolic function 2. No significant valvular abnormalities Previewed by: Dr. Jeanette Bennett MD (Electronically Signed) Final Date: 05 June 2024 12:03
--- NOTE | 2024-06-05 12:25 | P.PN ---
Subjective Progress Note Date: 06/05/24 The patient is a 68-year-old female follows in the office with Dr. Huizar with known history of seizure, status post cerebral aneurysm clipping, chronic tobacco use who presents to the hospital with recurrent episodes of dizziness, falling but no syncope. She has been having this issue for a while. She has been followed by Dr. Reynolds. She denies any history of cardiac disease, she denies any palpitation. She denies any chest discomfort. She has dyspnea on exertion related to her smoking. She has no peripheral edema, no PND or orthopnea. She has been in sinus mechanism since her admission. She carries the diagnosis of seizure disorder. Cardiology consultation was requested because of the dizziness. Patient denies any recent cardiac workup but has no history of CHF or acute RI. She has a history of hypertension and hyperlipidemia. 06/05/2024 Patient was seen and examined sitting up in bed. She is overall feeling better. She has had no further dizziness. She is maintaining sinus mechanism with no evidence of arrhythmia. Blood pressure was high through the night but on the low side this morning. Chlorthalidone remains on hold. She has been up walking in the halls without difficulties. Objective - Vital Signs Vital signs: Vital Signs Temp 98.0 F 06/05/24 07:27 Pulse 72 06/05/24 08:10 Resp 16 06/05/24 07:27 BP 117/75 06/05/24 07:27 Pulse Ox 93 L 06/05/24 07:27 FiO2 Intake & Output 06/04/24 06/05/24 06/05/24 18:59 06:59 18:59 Intake Total 476 Balance 476 Intake: Oral 476 Other: # Voids 4 1 - Exam 68-year-old female, alert oriented no apparent distress,Blood pressure 140/80, Heart rate 70 Head: Normocephalic. Eyes: Sclerae nonicteric. Neck: Good carotid upstroke, no bruit, no jugular venous distention. Lungs: Decreased air exchange but no wheezes Heart: Regular rate and rhythm, S1-S2, no S3, no rub. Systolic ejection murmur. Abdomen: Soft nontender, positive bowel sounds no organomegaly. Extremities: No edema, intact distal pulses. - Labs CBC & Chem 7: 06/04/24 03:20 06/04/24 03:20 Assessment and Plan Assessment: 1. Symptoms of dizziness, no evidence of cardiac etiology, no evidence of arrhythmia 2. Chronic tobacco use 3. History of hyperlipidemia 4. History of seizure disorder Plan: From cardiology's perspective medications were reviewed and we will continue the same. Echocardiogram is pending. If there is no significant abnormalities noted on the echocardiogram no further cardiac workup will be needed at this time. She will follow-up as an outpatient with Dr. Huizar. CARDIOGRAPH OPERATOR note has been reviewed, I agree with a documented findings and plan of care. Patient was seen and examined.
[2024-06-05 14:20] VITALS: BP 138/70; PULSE 84; RESP 19; TEMP 98
== END 2024-06-05 14:26 | disposition home or self-care (01) | DRG 918 ==
LOC: EC 18:26 → 6NMEDSUR 21:16 → OBSVTOIN 06-03 14:51
PROVIDERS: ADMIT Hospitalist; ATTEND Hospitalist
DX: T42.4X1A Poisoning by benzodiazepines, accidental (unintentional), initial encounter (principal); R53.1 Weakness; J44.9 Chronic obstructive pulmonary disease, unspecified; R42 Dizziness and giddiness; K21.9 Gastro-esophageal reflux disease without esophagitis; E78.5 Hyperlipidemia, unspecified; I10 Essential (primary) hypertension; G40.409 Other generalized epilepsy and epileptic syndromes, not intractable, without status epilepticus; F17.210 Nicotine dependence, cigarettes, uncomplicated; G89.29 Other chronic pain; R29.6 Repeated falls; H53.462 Homonymous bilateral field defects, left side; F41.9 Anxiety disorder, unspecified; F32.A Depression, unspecified; E87.6 Hypokalemia; M47.816 Spondylosis without myelopathy or radiculopathy, lumbar region; R32 Unspecified urinary incontinence; Z88.8 Allergy status to other drugs, medicaments and biological substances; Z86.73 Personal history of transient ischemic attack (TIA), and cerebral infarction without residual deficits; Z88.5 Allergy status to narcotic agent
CPT/HCPCS: 36415; 71046; 80048; 80053; 80175; 81001; 82607; 82746; 83735; 84443; 84484; 85025; 85610; 85730; 93005; 93306; 94640; 96374; 99285